=== PATIENT | female | born 1960 | race Two or more races ===

== ENCOUNTER 2019-08-08 11:23 | Inpatient (IN) | payer MEDICAID ==
[2019-08-08] VITALS (25 sets, daily range): BP systolic 94–129; BP diastolic 39–79
[~2019-08-08] VITALS: Ht 165.1 cm; Wt 119.3 kg
--- NOTE | 2019-08-08 11:36 | NUR ---
PT BROUGHT IN FROM [facility] FOR C/C OF AMS PT HAS 18 G IN LAC PLACED BY PARAMEDICS NON VERBAL BLOOD PRESSURE ABNORMAL AND A-FIB ON CONVENTIONS RESERVATIONIST. PT NOTED TO HAVE 4+ PITTING EDEMA, DE LA FUENTE WELL PLACED ON DEBRILLATOR PADS WILL CONTINUE TO MONITOR.
[2019-08-08] MEDS ORDERED: AMIO200T4 PO (11:57)
[2019-08-08] MEDS ORDERED: NA P133E RC (11:57)
[2019-08-08] MEDS ORDERED: RIFA550T PO (11:57)
[2019-08-08] MEDS ORDERED: MULT-447 PO (11:57)
[2019-08-08] MEDS ORDERED: METO25TA20 PO (11:57)
[2019-08-08] MEDS ORDERED: AMIN30LI2 PO (11:57)
[2019-08-08] MEDS ORDERED: BISA10SU11 RC (11:57)
[2019-08-08] MEDS ORDERED: RISP0.253 PO (11:57)
[2019-08-08] MEDS ORDERED: HEPA50008 SQ (11:57)
[2019-08-08] MEDS ORDERED: TRAM50TA2 PO (11:57)
[2019-08-08] MEDS ORDERED: LAMO25TA5 PO (11:57)
[2019-08-08] MEDS ORDERED: MAGN400O6 PO (11:57)
[2019-08-08] MEDS ORDERED: MAGN400T26 PO (11:57)
[2019-08-08] MEDS ORDERED: ESCI5TAB PO (11:57)
[2019-08-08] MEDS ORDERED: FURO-144 PO (11:57)
[2019-08-08] MEDS ORDERED: LOPE1LIQ31 GT (11:57)
[2019-08-08] MEDS ORDERED: SENN-168 PO (11:57)
[2019-08-08 12:09] LABS: BASOPHILS % (AUTO) 0.5 % (0.0-2.0); HEMATOCRIT 31 % (33-45); HEMOGLOBIN 10.2 g/dL (11.5-14.8); LYMPHOCYTES # (AUTO) 0.5 /CMM (0.8-4.8); LYMPHOCYTES % (AUTO) 5.9 % (20.0-44.0); MEAN CORPUSCULAR HGB CONC 33 g/dl (31.0-36.0); MEAN CORPUSCULAR VOLUME 97 fL (82-100); MONOCYTES # (AUTO) 0.7 /CMM (0.1-1.30); MONOCYTES % (AUTO) 7.9 % (2.0-12.0); NEUTROPHILS # (AUTO) 7.3 /CMM (1.8-8.9); NEUTROPHILS % (AUTO) 80.7 % (43.0-81.0); PLATELET COUNT (AUTO) 150 /CMM (150-450); RED BLOOD CELL COUNT(AUTO) 3.19 MIL/uL (4.0-5.2); WHITE BLOOD COUNT (AUTO) 9.1 K/uL (4.3-11.0)
[2019-08-08 12:22] LABS: APPEARANCE,URINE Cloudy (CLEAR); BILIRUBIN,URINE SMALL (NEGATIVE); BLOOD, URINE Large Ery/uL (NEGATIVE); COLOR,URINE Yellow (YELLOW); KETONES,URINE Trace (NEGATIVE); LEUKOCYTE ESTERASE ,URINE Large (NEGATIVE); NITRITE, URINE Negative (NEGATIVE); PROTEIN,URINE >=300 mg/dl (NEGATIVE); UGLUCOSE Negative (NEGATIVE); UROBILINOGEN,URINE 0.2 EU/dL (0.2)
--- NOTE | 2019-08-08 12:23 | NUR ---
URINE SENT TO LAB
[2019-08-08 12:29] LABS: ALANINE AMINOTRANSFERASE 20 U/L (12-78); ALBUMIN 2.5 g/dL (3.4-5.0); ALKALINE PHOSPHATASE 108 U/L (46-116); ASPARTATE AMINOTRANSFERASE 31 U/L (15-37); BILIRUBIN,DIRECT 0.3 mg/dL (0.0-0.2); BILIRUBIN,TOTAL 0.8 mg/dL (0.2-1.0); CALCIUM, SERUM 8.5 mg/dL (8.5-10.1); CARBON DIOXIDE 23 mmol/L (21-32); CHLORIDE 99 mmol/L (98-107); CREATININE 2.8 mg/dL (0.6-1.3); GLUCOSE 103 mg/dL (74-106); SODIUM SERUM 127 mmol/L (136-145); TOTAL PROTEIN, SERUM 6.4 g/dL (6.4-8.2)
[2019-08-08 12:31] LABS: UREA NITROGEN, BLOOD 92 mg/dL (7-18)
[2019-08-08 12:37] LABS: BACTERIA,URINE Many /HPF (None Seen); SQUAMOUS EPITHELIAL CELL,UR Few /HPF (None Seen); WBC,URINE TOO NUMEROUS TO COUN /HPF (0-3)
[2019-08-08 12:38] LABS: SERUM AMMONIA 105 umol/L (11-32)
--- NOTE | 2019-08-08 12:40 | NUR ---
CALLED RESPIRATORY FOR NEBULIZER
[2019-08-08] MEDS ORDERED: CALCIUM CHLORIDE 1,000 MG/10 ML DISP.SYRIN ONE (12:42)
[2019-08-08 12:50] LABS: THYROID STIMULATING HORMONE 5.712 uIU/mL (0.358-3.74)
[2019-08-08] MEDS ORDERED: INSULIN REGULAR, HUMAN 100 UNIT/ML 10 ML VIAL IV ONE (13:00)
[2019-08-08] MEDS ORDERED: ALBUTEROL FS 2.5 MG/0.5 ML VIAL.NEB NEB ONE (13:00)
[2019-08-08] MEDS ORDERED: IV NS 0.9% 500 ML BAG IV ONE (13:00)
[2019-08-08] MEDS ORDERED: DEXTROSE 50%-WATER 50 ML DISP.SYRIN IVP ONE (13:00)
[2019-08-08] MEDS ORDERED: FUROSEMIDE 100 MG/10 ML VIAL IV ONE (13:00)
[2019-08-08] MEDS ORDERED: IV NS 0.9% 250 ML BAG IV ONE (13:00)
[2019-08-08] MEDS ORDERED: Calcium Chloride 13.6 MEQ/10ML VIAL IV ONE (13:00)
[2019-08-08] MEDS ORDERED: ATROPINE SULFATE 1 MG/10 ML DISP.SYRIN IV ONE (13:00)
--- NOTE | 2019-08-08 13:04 | NUR ---
JENNIFER MANAGER USER INTERFACE TASHA EVERETT. #[phone]
--- NOTE | 2019-08-08 13:33 | NUR ---
CALLED [facility]SE [facility] FOR ICU BED
--- NOTE | 2019-08-08 14:14 | NUR ---
ICU BED 252 GIVEN
[2019-08-08] MEDS ORDERED: ONDANSETRON HCL/PF 4 MG/2 ML VIAL IVP PRN (14:30)
[2019-08-08] MEDS ORDERED: ACETAMINOPHEN 325 MG TABLET PO PRN (14:30)
[2019-08-08] MEDS ORDERED: MAGNESIUM HYDROXIDE 30 ML UDC PO PRN (14:30)
[2019-08-08] MEDS ORDERED: MAG HYDROX/AL HYDROX/SIMETH 30 ML UDC PO PRN (14:30)
[2019-08-08] MEDS ORDERED: DOPamine 400 MG/D5W 250 ML RTU PIGGYBACK IV PRN ×2 (14:30→18:00)
[2019-08-08 14:40] LABS: ABG BASE EXCESS -6.3 mmol/L; ABG OXYGEN SATURATION 96.6 % (92.0-98.5); ABG PCO2 38.2 mmHg (35.0-45.0); ABG PH 7.319 (7.350-7.450); ABG PO2 96.3 mmHg (75.0-100.0); AaDO2 58.3 mmHg; COHb 0.3 % (0.5-1.5); MetHb 0.3 % (0.0-1.5); SITE, ABG Left Radial; VENT MODE, BG NASAL CANNULA
[2019-08-08] MEDS ORDERED: ATROPINE SULFATE 1 MG/10 ML DISP.SYRIN IV PRN (15:00)
[2019-08-08] MEDS ORDERED: ALBUTEROL FS 2.5 MG/3 ML VIAL.NEB NEB PRN (15:00)
[2019-08-08] MEDS ORDERED: DEXTROSE 50%-WATER 50 ML DISP.SYRIN IV PRN (15:00)
[2019-08-08] MEDS ORDERED: PIPERACILLIN /TAZOBACTAM 2.25 G in IV D5W 50 ML IV ONE (15:30)
[2019-08-08] MEDS ORDERED: DOPamine 400 MG in IV D5W 250 ML IV PRN (15:30)
[2019-08-08] MEDS ORDERED: KETAMINE HCL (500MG/10ML) 50 MG/ML VIAL ONE (15:56)
[2019-08-08] MEDS ORDERED: ROCURONIUM BROMIDE 100 MG/10 ML VIAL IV ONE (16:00)
[2019-08-08] MEDS ORDERED: KETAMINE HCL (500MG/10ML) 50 MG/ML VIAL IV ONE (16:00)
[2019-08-08] MEDS ORDERED: ROCURONIUM BROMIDE 50 MG/5 ML ONE (16:00)
--- NOTE | 2019-08-08 16:05 | NUR ---
PRODUCTION EDITOR NOTE PATIENT TRANSFERRED FROM ICU. ALTERED MENTAL STATUS DUE TO ACUTE KIDNEY INJURY AND HYPERKALEMIA. PATIENT ON MONITOR ATRIAL FIBRILLATION NOTED. INTUBATED ON ARRIVAL RESPIRATORY AT BEDSIDE. PATIENT HAS MULTIPLE WOUNDS NOTED AND PICTURES TAKEN AND DOCUMENTED. DE LA FUENTE CATHETER CHANGED, PATIENT CLEANED AND DRY. PICC LINE WAS PLACED IN ER TODAY PATENT AND FLUSHING WELL. ALLERGY TO ACETOMINOPHEN NOTED. BED IN LOW POSITION AND SIDE RAILS UP. MULTIPLE NURSE ASSIST TO REPOSITION AND TRANSFER X4. CONTINUE TO MONITOR.
--- NOTE | 2019-08-08 16:25 | NUR ---
RT Pt orally intubated in ER by Dr. Pond at 1605, 7.5 ET tube is secured at 24cm at the lip line. HELICOPTER CREW CHIEF cuff pressure noted. Equal bilateral breathe sounds and chest rise noted. Positive color change one CO2 detector. Pt was immediately transported up to ICU and placed on mechanical ventilation with noted settings per MD order. Vent alarms are set and audible with BVM by bedside. Vent is plugged into red outlet. No respiratory distress noted at this time. Addendum: 08/08/19 at 1650 by PATEL CAMILO RT Amended: Links added.
[2019-08-08] MEDS ORDERED: Sodium Bicarbonate 150 MEQ in IV D5W 1,000 ML IV PRN (16:30)
[2019-08-08] MEDS ORDERED: PROPOFOL 100 ML IV PRN (17:00)
[2019-08-08] MEDS: PANTOPRAZOLE 40 MG VIAL IV SCH (17:25)
[2019-08-08 17:29] LABS: CALCIUM, SERUM 8.4 mg/dL (8.5-10.1); CREATININE 2.7 mg/dL (0.6-1.3)
[2019-08-08] MEDS ORDERED: DOPamine 400 MG/D5W 250 ML RTU PIGGYBACK IV ONE (17:30)
[2019-08-08 17:32] LABS: POTASSIUM 6.4 mmol/L (3.5-5.1)
[2019-08-08 17:57] LABS: ABG BASE EXCESS -5.2 mmol/L; ABG OXYGEN SATURATION 95.3 % (92.0-98.5); ABG PCO2 41.6 mmHg (35.0-45.0); ABG PH 7.314 (7.350-7.450); ABG PO2 85.5 mmHg (75.0-100.0); AaDO2 224.2 mmHg; COHb 0.7 % (0.5-1.5); MetHb 0.5 % (0.0-1.5); O2Hb 94.2 % (94.0-97.0); PEEP,BG 0 cm H2O; SITE, ABG Left Radial; VT, ABG 550 mL
[2019-08-08] MEDS: DOPamine 400 MG in IV D5W 250 ML IV PRN (18:29)
[2019-08-08] MEDS ORDERED: SODIUM POLYSTYRENE SULFONATE 15 G/60 ML BOTTLE PO ONE (18:30)
[2019-08-08] MEDS ORDERED: INSULIN REGULAR, HUMAN 100 UNIT/ML 10 ML VIAL SQ ONE (18:30)
[2019-08-08] MEDS: LACTULOSE 10 G/15 ML UDC (PYXIS) PO SCH (18:34)
[2019-08-08] MEDS: BLOOD SUGAR DIAGNOSTIC 1 EACH STRIP IN SCH (18:34)
--- NOTE | 2019-08-08 19:00 | NUR ---
RN CLOSING NOTE PATIENT IN BED ALTERED NONE RESPONSIVE. OROPHARYNGEAL TUBE INSERTED CHECKED FOR PLACEMENT BY TWO NURSES, INTUBATED, ALL MEDS GIVEN PER MD ORDER. GENERALIZED EDEMA, F/C PATENT AND DRAINING WELL. PICC LINE PATENT AND DRAINING WELL. IV MEDICATIONS ADMINISTERED EFFECTIVE IN INCREASING BLOOD PRESSURE SLIGHTLY SBP< 100. WOUND CONSULT PLACED, PICTURES IN CHART. BED IN LOW POSITION, SIDE RAILS UP ALL NEEDS MET AT THIS TIME. CALL LIGHT WITHIN REACH. DAUGHTER ALLEY CONTACTED FOR EMEGENCY DIALYSIS SIGNED CONSENT FOR TX.
[2019-08-08] MEDS ORDERED: ALBUTEROL FS 2.5 MG/3 ML VIAL.NEB NEB SCH (19:30)
--- NOTE | 2019-08-08 19:48 | NUR ---
RT PT RECEIVED ON VENT VIA TRACH. NO RESP DISTRESS NOTED. PT RECEIVING NO SCHEDULED BREATHING TX AT THIS TIME. Addendum: 08/08/19 at 1948 by TED PUENTE RT Amended: Links added. Addendum: 08/08/19 at 1957 by TED PUENTE RT RT PT RECEIVED ON VENT. NO RESP DISTRESS NOTED. PT RECEIVING SCHEDULED ALBUTEROL AND ATROVENT TX.
--- NOTE | 2019-08-08 21:12 | NUR ---
RT ETT WITH DRAWN 3CM TO 21CM AT THE TEETH BASED ON CHEST XRAY NOTES Addendum: 08/08/19 at 2113 by TED PUENTE RT Amended: Links added.
--- NOTE | 2019-08-08 21:45 | NUR ---
RETAIL SOLAR ADVISOR: CHARGE NURSE ED CALLED DR. BATISTA'S OFFICE AND SPOKE WT LAP LAYER TO FOLLOW-UP HD CATH PLACEMENT FOR EMERGENCY HD. LAP LAYER SAID SHE WILL PAGE MD TO CHECK IF PLACEMENT WILL BE DONE DURING THE SHIFT.
[2019-08-08] MEDS: HEPARIN SODIUM, PORCINE 5000 UNITS/1 ML VIAL SQ SCH (22:02)
--- NOTE | 2019-08-08 22:38 | NUR ---
RN CLINICAL RESOURCE: DR. BUI CALLED BACK AND MADE AWARE THAT NO HD CATHETER PLACEMENT WAS DONE YET. MADE AWARE THAT PT HAS NOT HAD BOWEL MOVEMENT YET S/P KAYEXALATE ADMINISTRATION BY DAY SHIFT. WT ORDER FOR STAT BMP AND SAID EVELIO GREEN IS COMING TO DO PLACEMENT. NOTED AND CARRIED OUT BMP STAT LAB ORDER.
[2019-08-08 23:19] LABS: CREATININE 2.5 mg/dL (0.6-1.3); POTASSIUM 5.2 mmol/L (3.5-5.1)
[2019-08-08 23:50] LABS: APPEARANCE,URINE SL CLOUDY (CLEAR); BILIRUBIN,URINE NEGATIVE (NEGATIVE); BLOOD, URINE 3+ Ery/uL (NEGATIVE); COLOR,URINE YELLOW (YELLOW); KETONES,URINE NEGATIVE (NEGATIVE); LEUKOCYTE ESTERASE ,URINE 3+ (NEGATIVE); NITRITE, URINE NEGATIVE (NEGATIVE); PH,URINE 5.5 (5.0-8.0); PROTEIN,URINE 1+ mg/dl (NEGATIVE); UGLUCOSE NEGATIVE (NEGATIVE); UROBILINOGEN,URINE 0.2 EU/dL (0.2)
--- NOTE | 2019-08-08 23:50 | NUR ---
HEMODIALYSIS CATHETER INSERTION Welder Apprentice Arc: [facility] Kaushal Mayorga NP Patient has order to insert HD catheter. Informed consent is signed and in chart. Insertion site determined to be right femoral vein. Patient was prepped using sterile technique with chlorhexidine. Patient was covered with a sterile drape and I donned a sterile gown. The insertion site was anesthetized with 1% lidocaine. Needle inserted under ultrasound guidance. Guidewire inserted through needle and needle removed. Small toyin made at insertion site of approximately 2 mm. Dilator inserted over guidewire then removed. Catheter inserted fully over guidewire. Guidewire removed. Blood return at both ports. Caps placed on each port. Catheter secured with 2 sutures. Biopatch placed and covered with tegaderm. No s/s of complication. Tolerated well with minimal blood loss. Ebl 3ml.
[2019-08-08 23:53] LABS: BACTERIA,URINE Moderate /HPF (None Seen); SQUAMOUS EPITHELIAL CELL,UR Few /HPF (None Seen); WBC,URINE 51-80 /HPF (0-3)
[2019-08-09] VITALS (97 sets, daily range): BP systolic 88–145; BP diastolic 32–92
--- NOTE | 2019-08-09 | NUR ---
TERRA COTTA SETTER: RIGHT FEMORAL HD CATHETER PLACED AND PT TOLERATED FAIRLY. HD NURSE AT BEDSIDE TO START HEMODIALYSIS. LAB CALLED FOR GLUCOSE QXQMB=208, ACCUCHECK DONE= 156. CHARGE NURSE ED MADE AWARE AND WILL COVER INSULIN PER SS.
[2019-08-09 00:02] LABS: CREATININE, URINE 95.8 MG/DL (30.0-125.0); URINE TOTAL PROTEIN 78.2 mg/dL (0-11.9)
[2019-08-09 00:12] LABS: EOSINOPHIL,URINE None Seen
[2019-08-09] MEDS: BLOOD SUGAR DIAGNOSTIC 1 EACH STRIP IN SCH ×5 (00:16→23:07)
[2019-08-09] MEDS: LACTULOSE 10 G/15 ML UDC (PYXIS) PO SCH ×5 (00:18→23:06)
[2019-08-09] MEDS: INSULIN REGULAR, HUMAN 100 UNIT/ML 3 ML VIAL SQ PRN ×2 (00:18→06:09)
--- NOTE | 2019-08-09 01:00 | NUR ---
SLICING MACHINE TENDER: HEMODIALYSIS DONE WT NO FLUID REMOVAL. PT IS MORE RESPONSIVE, OPENS EYES TO PAIN STIMULI WT IMPROVED HR AND BP. WILL START PROPOFOL AND TITRATE DOPAMINE NEEDED.
[2019-08-09] MEDS: DOPamine 400 MG in IV D5W 250 ML IV PRN (01:12)
[2019-08-09] MEDS: PIPERACILLIN /TAZOBACTAM 2.25 G in IV D5W 50 ML IV SCH ×4 (01:12→23:06)
[2019-08-09] MEDS: IV NS 0.9% 250 ML IV PRN ×2 (01:13→23:14)
[2019-08-09] MEDS ORDERED: IV D5/ 0.9% NACL 1,000 ML IV PRN (01:25)
[2019-08-09] MEDS: PROPOFOL 100 ML IV PRN ×4 (02:49→23:06)
--- NOTE | 2019-08-09 03:00 | NUR ---
CATHODE WASHER: DOPAMINE DRIP STOPPED AT THIS TIME AND STARTED DIPRIVAN DRIP PT IS MORE AWAKE AND FIGHTING VENT. ABLE TO FOLLOW SIMPLE COMMANDS AT TIMES. WILL CONTINUE TO MONITOR.
[2019-08-09 04:50] LABS: BASOPHILS % (AUTO) 0.1 % (0.0-2.0); EOSINOPHILS % (AUTO) 0.2 % (0.0-6.0); HEMATOCRIT 31 % (33-45); HEMOGLOBIN 10.1 g/dL (11.5-14.8); LYMPHOCYTES # (AUTO) 0.4 /CMM (0.8-4.8); LYMPHOCYTES % (AUTO) 3.3 % (20.0-44.0); MEAN CORPUSCULAR HGB CONC 32 g/dl (31.0-36.0); MEAN CORPUSCULAR VOLUME 97 fL (82-100); MONOCYTES # (AUTO) 0.8 /CMM (0.1-1.30); MONOCYTES % (AUTO) 6.6 % (2.0-12.0); NEUTROPHILS # (AUTO) 10.8 /CMM (1.8-8.9); NEUTROPHILS % (AUTO) 89.8 % (43.0-81.0); PLATELET COUNT (AUTO) 143 /CMM (150-450); RED BLOOD CELL COUNT(AUTO) 3.21 MIL/uL (4.0-5.2)
[2019-08-09 05:05] LABS: ALBUMIN 2.2 g/dL (3.4-5.0); BILIRUBIN,TOTAL 0.8 mg/dL (0.2-1.0); CALCIUM, SERUM 8.1 mg/dL (8.5-10.1); CREATININE 2.5 mg/dL (0.6-1.3); MAGNESIUM 2.5 mg/dL (1.8-2.4); PHOSPHORUS 5.3 mg/dL (2.5-4.9); POTASSIUM 5.4 mmol/L (3.5-5.1); TOTAL PROTEIN, SERUM 5.6 g/dL (6.4-8.2)
[2019-08-09] MEDS ORDERED: LACTULOSE 10 G/15 ML UDC (PYXIS) ONE (05:52)
--- NOTE | 2019-08-09 06:23 | NUR ---
DIRECT MARKETING EXECUTIVE: REMAINED SEDATED ON DIPRIVAN DRIP AT 15MCG/KG/MIN AND D5NS AT 100ML/HR WT GOOD URINE OUTPUT VIA DE LA FUENTE CATHETER. STILL OFF DOPAMINE. NO EPISODE OF BOWEL MOVEMENT DURING THE SHIFT. WILL ENDORSE TO DAY SHIFT FOR CONTINUITY OF CARE. SAFETY PRECAUTION NOTED AT ALL TIMES.
[2019-08-09] MEDS ORDERED: FEE EMEERGENCY 1 MIN EA MC ONE (06:38)
[2019-08-09] MEDS ORDERED: ROCURONIUM BROMIDE 50 MG/5 ML IV ONE (06:38)
[2019-08-09] MEDS ORDERED: LACTULOSE 10 G/15 ML UDC (PYXIS) PO PRN (08:00)
[2019-08-09] MEDS: HEPARIN SODIUM, PORCINE 5000 UNITS/1 ML VIAL SQ SCH ×2 (08:20→21:19)
[2019-08-09 08:24] LABS: IRON, SERUM 49 ug/dl (50-175); TOTAL IRON BINDING CAPACITY 272 ug/dl (250-450)
[2019-08-09] MEDS: PANTOPRAZOLE 40 MG VIAL IV SCH (08:50)
--- NOTE | 2019-08-09 09:30 | NUR ---
RN NOTES 0730-RECEIVED PATIENT FROM . PATIENT ORALLY IN TUBATED, ON PROPOFOL DRIP AT 15 MCG/KG/MIN.SATURATION UP TO 100%. MO NITOR BP, RESPIRATION.DR HERRING MADE RPOUNDS 0930-DAUGHTER AGUSTÍN AT BEDSIDE. JASS MENDOZA MADE ROUNDS AND DISCUSSED WITH HER PLANS OF CARE. DR GUZMAN ALSO SPOKE TO AGUSTÍN.
[2019-08-09 09:32] LABS: FERRITIN 144 ng/mL (8-388)
[2019-08-09 10:04] LABS: ABG BASE EXCESS -3.6 mmol/L; ABG OXYGEN SATURATION 98.1 % (92.0-98.5); ABG PCO2 39.9 mmHg (35.0-45.0); ABG PH 7.352 (7.350-7.450); ABG PO2 127.7 mmHg (75.0-100.0); AaDO2 111.6 mmHg; COHb 0.5 % (0.5-1.5); MetHb 0.8 % (0.0-1.5); O2Hb 96.8 % (94.0-97.0); PEEP,BG 0 cm H2O; SITE, ABG Left Radial
[2019-08-09] MEDS ORDERED: PIPERACILLIN /TAZOBACTAM 3.375 G in IV D5W 100 ML IV SCH (10:30)
[2019-08-09] MEDS ORDERED: DOPamine 400 MG in IV D5W 250 ML IV PRN ×2 (12:00→17:00)
--- NOTE | 2019-08-09 15:13 | NUR ---
rn notes 1512-PATIENT FAMILY INFORMED OF PATIENT SKIN CONDITION,DAUGHTER AGUSTÍN STATES THAT HER SKIN CONDITION HAS BEEN "NOT GOOD" WHEN SHE WAS IN ANOTHER FACILITY, BEFORE BEING SENT TO SNF AND TO THIS HOSPITAL.
[2019-08-09] MEDS ORDERED: DOPamine 400 MG/D5W 250 ML RTU PIGGYBACK IV PRN (16:30)
[2019-08-09] MEDS: NEPRO 1,000 ML BOTTLE GT PRN (18:14)
--- NOTE | 2019-08-09 19:13 | NUR ---
RN NOTES 1900-PATIENT WAS DIALIZED EARLIER, DOPAMINE SUPPORT FOR BP DURING HD. PER DIALSYIS RN, 1000 ML OUT. DOPAMINE TITRTATED AFTER DIALYSIS. PATIENT FOLLOWS SIMPLE COMMANDS AT 10 MCG/KG/MIN OF PROPOFOL AFTER HD. REPORT GIVEN TO INCOMING RN FOR FURTHER CARE
--- NOTE | 2019-08-09 19:30 | NUR ---
ELECTRONIC SECURITY SPECIALIST INITIAL SHIFT NOTES RECEIVED PATIENT IN BED, SEDATED ON DIPRIVAN DRIP. PATIENT ORALLY INTUBATED, ETT 7.5, 22CM AT LIP LINE, ON MECHANICAL VENTILATION WITH SETTINGS: AC 16, TV 550, FIO2 40%, NO PEEP. PATIENT TOLERATING VENT SETTINGS WELL, FREE FROM ANY S/S OF RESPIRATORY DISTRESS. BEDSIDE SPECIAL EDUCATION ADMINISTRATOR SHOWS SINUS RHYTHM, HR CURRENTLY 73 BPM. BRIAN PICC PATENT AND INTACT, DIPRIVAN GTT @ 10MCG/KG/MIN, DOPAMINE GTT @ 3MCG/KG/MIN. RIGHT FEMORAL HD CATHETER INTACT, DRESSING CLEAN DRY AND INTACT, NO BLEEDING NOTED AT SITE. DE LA FUENTE CATHETER PATENT AND INTACT, DRAINING VIA GRAVITY. BED LOCKED, LOW, KEPT IN SEMI-FOWLERS POSITION. WILL CONTINUE TO CLOSELY MONITOR
[2019-08-10] VITALS (93 sets, daily range): BP systolic 85–133; BP diastolic 31–87
--- NOTE | 2019-08-10 04:00 | NUR ---
PAYABLE MANAGER NOTES PATIENT NOTED WITH MODERATE SIZED BM, BROWN IN COLOR, SEMIFORMED, SOFT. FULL BED BATH RENDERED, PATIENT TOLERATED WELL. WILL CONTINUE TO CLOSELY MONITOR
[2019-08-10] MEDS: PROPOFOL 100 ML IV PRN ×6 (04:03→21:29)
[2019-08-10 04:51] LABS: BASOPHILS % (AUTO) 0.2 % (0.0-2.0); EOSINOPHILS % (AUTO) 5.6 % (0.0-6.0); HEMATOCRIT 29 % (33-45); HEMOGLOBIN 9.6 g/dL (11.5-14.8); LYMPHOCYTES # (AUTO) 0.6 /CMM (0.8-4.8); LYMPHOCYTES % (AUTO) 6.1 % (20.0-44.0); MEAN CORPUSCULAR HGB CONC 34 g/dl (31.0-36.0); MEAN CORPUSCULAR VOLUME 95 fL (82-100); MONOCYTES # (AUTO) 0.9 /CMM (0.1-1.30); MONOCYTES % (AUTO) 9.3 % (2.0-12.0); NEUTROPHILS # (AUTO) 7.9 /CMM (1.8-8.9); NEUTROPHILS % (AUTO) 78.8 % (43.0-81.0); PLATELET COUNT (AUTO) 122 /CMM (150-450); RED BLOOD CELL COUNT(AUTO) 2.98 MIL/uL (4.0-5.2); WHITE BLOOD COUNT (AUTO) 10.1 K/uL (4.3-11.0)
[2019-08-10 05:12] LABS: ALBUMIN 2.2 g/dL (3.4-5.0); BILIRUBIN,TOTAL 0.9 mg/dL (0.2-1.0); CALCIUM, SERUM 8.1 mg/dL (8.5-10.1); CREATININE 1.9 mg/dL (0.6-1.3); MAGNESIUM 2.5 mg/dL (1.8-2.4); PHOSPHORUS 4.6 mg/dL (2.5-4.9); POTASSIUM 4.9 mmol/L (3.5-5.1); TOTAL PROTEIN, SERUM 5.5 g/dL (6.4-8.2)
[2019-08-10] MEDS ORDERED: LACTULOSE 10 G/15 ML UDC (PYXIS) ONE (05:47)
[2019-08-10] MEDS: BLOOD SUGAR DIAGNOSTIC 1 EACH STRIP IN SCH ×3 (05:50→17:49)
[2019-08-10] MEDS: LACTULOSE 10 G/15 ML UDC (PYXIS) PO SCH ×3 (05:50→17:49)
--- NOTE | 2019-08-10 06:45 | NUR ---
DIABETES EDUCATOR NOTES PATIENT NOTED WITH LARGE BM, LIQUID, BROWN IN COLOR. MULTIPLE STAFF MEMBERS REQUIRED FOR PARTIAL BED BATH, ZGUARD APPLIED TO PROTECT SKIN, MNEPILEX FOAM DRESSINGS PLACED IN OPEN AREAS/SKIN CREASES/FOLDS, PENDING WOUND CARE CONSULT.
--- NOTE | 2019-08-10 07:00 | NUR ---
SOFTWARE DEVELOPMENT INTERN CLOSING NOTES THROUGHOUT SHIFT, PATIENT WITH 2 BMs. REMAINS ORALLY INTUBATED ON MECHANICAL VENTILATION, NO EPISODES OF RESPIRATORY DISTRESS. CONTINUES WITH BILATERAL SOFT WRIST RESTRAINTS DUE TO HIGH SELF EXTUBATION RISK. PATIENT SEDATED ON DIPRIVAN GTT @ 20 MCG/KG/MIN, DOPAMINE GTT CONTINUES @ 1.5 MCG/KG/MIN. WILL EDNORSE THE PATIENT TO THE AM SHIFT NURSE FOR CONTINUITY OF CARE
--- NOTE | 2019-08-10 07:10 | NUR ---
RN NOTES RECEIVED PATIENT ON BED, SEDATED ON DIPRIVAN DRIP. PATIENT ORALLY INTUBATED, ETT 7.5, 22CM AT LIP LINE, ON MECHANICAL VENTILATION WITH SETTINGS: AC 16, TV 550, FIO2 40%, NO PEEP. TOLERATING VENT SETTINGS WELL, ORAL AND ET TUBE SUCTIONING DONE, SINUS RHYTHM ON TELE , HR IN 70'S , BRIAN PICC PATENT AND INTACT, DIPRIVAN GTT @ 20 MCG/KG/MIN, DOPAMINE GTT @ 1.5 MCG/KG/MIN. RIGHT FEMORAL HD CATHETER INTACT, DRESSING CLEAN DRY AND INTACT,SITE CLEAN ,DRY AND INTACT, DE LA FUENTE CATHETER DRAINING TO GRAVITY, SR UP x3, CALL LIGHT WITHIN EASY REACH, BED LOCKED, LOW, KEPT IN SEMI-FOWLERS POSITION. WILL CONTINUE TO CLOSELY MONITOR.
[2019-08-10 07:31] LABS: THYROID STIMULATING HORMONE 3.017 uIU/mL (0.358-3.74)
[2019-08-10] MEDS: PIPERACILLIN /TAZOBACTAM 2.25 G in IV D5W 50 ML IV SCH ×2 (08:28→15:00)
[2019-08-10] MEDS ORDERED: PANTOPRAZOLE 40 MG/PACK PACK NG SCH (09:00)
--- NOTE | 2019-08-10 09:00 | NUR ---
RN NOTES PLT =122 , HEPARIN HELD , REJI NOTIFED , NO ORDER YET .
--- NOTE | 2019-08-10 10:55 | NUR ---
RN NOTES PT HAS LOOSE STOOL , RECTAL TUBE INSERTED PER FARM EQUIPMENT ENGINEER ORDER .
--- NOTE | 2019-08-10 12:00 | NUR ---
RN NOTES NO RESPONSE FROM REJI DATA ENTRY MANAGER REGARDING HEPARIN SQ YET , DATA ENTRY MANAGER PAGED AGAIN.
[2019-08-10] MEDS: NYSTATIN TOP POWDER 15 GM BOTTLE TP SCH ×2 (14:55→16:56)
[2019-08-10] MEDS: CLOTRIMAZOLE/BETAMETASONE DIPROPIONATE 15 GM TUBE TP SCH ×2 (14:55→16:56)
[2019-08-10] MEDS: HEPARIN SODIUM, PORCINE 5000 UNITS/1 ML VIAL SQ SCH (15:23)
[2019-08-10] MEDS: NEPRO 1,000 ML BOTTLE GT PRN (15:25)
--- NOTE | 2019-08-10 15:30 | NUR ---
RN NOTES IT IS OK TO GIVE HEPARIN SQ PER REJI HEAD MACHINIST.
[2019-08-10] MEDS: HYDROGEL DRESSING 90 GM TUBE TP SCH (15:57)
--- NOTE | 2019-08-10 18:21 | NUR ---
RN NOTES PT RECEIVING HD AT THIS TIME , ON DIPRIVAN AT 30MCG/MIN. DOPAMINE AT 1 MCG/KG/MIN INFUSING VIA R UPPER ARM PICC LINE, TF AT 40CC/HR , TOLERATING WELL, NO RESIDUAL NOTED, RECTAL TUBE DRINING TO GRAVITY WITH LIGHT BROWNISH LOOSE STOOL , SR UP x3, CALL LIGHT WITHIN EASY REACH, BED LOCKED AND IN LOWEST POSITION, NO SIGNIFICANT CHANGES NOTED ON THIS SHIFT, WILL ENDOSE TO QUANTITATIVE DEVELOPER NURSE FOR CONTINUITY OF CARE .
--- NOTE | 2019-08-10 19:30 | NUR ---
GAS STOVE SERVICER HELPER INITIAL SHIFT NOTES RECEIVED PATIENT IN BED, SEDATED ON DIPRIVAN DRIP. PATIENT ORALLY INTUBATED, ETT 7.5, 22CM AT LIP LINE, ON MECHANICAL VENTILATION WITH SETTINGS: AC 16, TV 550, FIO2 40%, NO PEEP. PATIENT TOLERATING VENT SETTINGS WELL, FREE FROM ANY S/S OF RESPIRATORY DISTRESS. BEDSIDE AERIAL INSTALLER SHOWS SINUS RHYTHM, HR CURRENTLY 76 BPM. BRIAN PICC PATENT AND INTACT, DIPRIVAN GTT @ 30MCG/KG/MIN, DOPAMINE GTT @ 1MCG/KG/MIN. RIGHT FEMORAL HD CATHETER INTACT, DRESSING CLEAN DRY AND INTACT, NO BLEEDING NOTED AT SITE. DE LA FUENTE CATHETER PATENT AND INTACT, DRAINING VIA GRAVITY. BED LOCKED, LOW, KEPT IN SEMI-FOWLERS POSITION. WILL CONTINUE TO CLOSELY MONITOR AND TRANSFER PATIENT TO [facility]
--- NOTE | 2019-08-10 20:57 | NUR ---
MANAGER REPORTING NOTES CALLED PHARMACY, SPOKE TO [facility] REGARDING ORDERS FOR HEPARIN 5000 UNITS SQ SCHEDULED Q12H. LAST DOSE WAS GIVEN AT 3PM DUE TO CLARIFICATION OF ORDERS WITH GLUE JOINTER FEEDER REJI. PER [facility], GIVE THIS NEXT DOSE AT MIDNIGHT, THEN CONTINUE THE SCHEDULE ORDERED. WILL CARRY OUT ORDERS AND CONTINUE TO CLOSELY MONITOR THE PATIENT
[2019-08-11] VITALS (98 sets, daily range): BP systolic 77–127; BP diastolic 27–70
[2019-08-11] MEDS: BLOOD SUGAR DIAGNOSTIC 1 EACH STRIP IN SCH ×4 (00:11→17:07)
[2019-08-11] MEDS: PIPERACILLIN /TAZOBACTAM 2.25 G in IV D5W 50 ML IV SCH ×3 (00:11→15:01)
[2019-08-11] MEDS: LACTULOSE 10 G/15 ML UDC (PYXIS) PO SCH ×4 (00:11→17:07)
[2019-08-11] MEDS: HEPARIN SODIUM, PORCINE 5000 UNITS/1 ML VIAL SQ SCH ×2 (00:13→09:00)
[2019-08-11] MEDS: PROPOFOL 100 ML IV PRN ×7 (00:27→20:33)
--- NOTE | 2019-08-11 01:00 | NUR ---
AMMUNITION AND EXPLOSIVES HANDLER NOTES PATIENT TRANSFERRED SAFELY TO [facility] BED WITH ASSISTANCE FROM 7 OTHER STAFF MEMBERS. PATIENT TOLERATED TRANSFER WELL.
[2019-08-11 04:19] LABS: BASOPHILS % (AUTO) 0.3 % (0.0-2.0); EOSINOPHILS % (AUTO) 2.7 % (0.0-6.0); HEMATOCRIT 28 % (33-45); HEMOGLOBIN 9.6 g/dL (11.5-14.8); LYMPHOCYTES # (AUTO) 0.3 /CMM (0.8-4.8); LYMPHOCYTES % (AUTO) 4.1 % (20.0-44.0); MEAN CORPUSCULAR HGB CONC 34 g/dl (31.0-36.0); MEAN CORPUSCULAR VOLUME 96 fL (82-100); MONOCYTES # (AUTO) 0.4 /CMM (0.1-1.30); NEUTROPHILS # (AUTO) 7.2 /CMM (1.8-8.9); NEUTROPHILS % (AUTO) 87.9 % (43.0-81.0); PLATELET COUNT (AUTO) 93 /CMM (150-450); RED BLOOD CELL COUNT(AUTO) 2.95 MIL/uL (4.0-5.2); WHITE BLOOD COUNT (AUTO) 8.2 K/uL (4.3-11.0)
[2019-08-11 04:31] LABS: CALCIUM, SERUM 8.8 mg/dL (8.5-10.1); CREATININE 1.5 mg/dL (0.6-1.3); POTASSIUM 4.1 mmol/L (3.5-5.1)
--- NOTE | 2019-08-11 05:24 | NUR ---
RECEIVED PT INTUBATED 7.5 ETT AT 22CM ON 840 VENT. NO RESP DISTRESS THE WHOLE NIGHT. SX'D FOR SML TO MOD AMT OF THICK PISANO SECRETIONS. VENT ALARMS SET AND AUDIBLE. AMBU BAG AT BEDSIDE. WILL CONTINUE TO MONITOR. Addendum: 08/11/19 at 0528 by BUTCH DUVAL RT Amended: Links added.
[2019-08-11 05:59] LABS: BAND % (MANUAL) 1 % (0.0-5.0); EOSINOPHILS % (MANUAL) 1 % (0-4); LYMPHOCYTES % (MANUAL) 4 % (16-48); MONOCYTES % (MANUAL) 1 % (0-11.0); NEUTROPHILS % (MANUAL) 93 (42-76)
[2019-08-11] MEDS ORDERED: LACTULOSE 10 G/15 ML UDC (PYXIS) ONE (06:42)
--- NOTE | 2019-08-11 07:00 | NUR ---
RN NOTES RECEIVED PATIENT ON BED, SEDATED ON DIPRIVAN DRIP. PATIENT ORALLY INTUBATED, ETT 7.5, 22CM AT LIP LINE, ON MECHANICAL VENTILATION WITH SETTINGS: AC 16, TV 550, FIO2 40%, NO PEEP. TOLERATING VENT SETTINGS WELL, ORAL AND ET TUBE SUCTIONING DONE, SINUS RHYTHM ON TELE , HR IN 70'S , R UPPER ARM PICC LINE INTACT, PATENT , DIPRIVAN GTT @ 30 MCG/KG/MIN, DOPAMINE GTT @ 1.5 MCG/KG/MIN. RIGHT FEMORAL HD CATHETER INTACT, DE LA FUENTE CATHETER DRAINING TO GRAVITY, FLEXISEAL DRINING TO GRAVITY WITH LIGHT BROWNISH LOOSE STOOL, SR UP x3, CALL LIGHT WITHIN EASY REACH, BED LOCKED AND IN LOWEST POSITION, KEPT IN SEMI-FOWLERS POSITION. WILL CONTINUE TO MONITOR.
--- NOTE | 2019-08-11 07:00 | NUR ---
BEVELING MACHINE OPERATOR CLOSING NOTES PATIENT RESTING IN BED, APPEARS COMFORTABLE, REMAINS SEDATED ON DIPRIVAN GTT AT 30MCG/KG/MIN, ALSO CONTINUES ON DOPAMINE GTT, TITRATED BACK TO 1.5MCG/KG/MIN. WILL ENDORSE THE PATIENT TO THE AM SHIFT NURSE FOR CONTINUITY OF CARE Addendum: 08/11/19 at 0802 by JOHANNA EDMONDS RN ADDENDUM* PATIENT WITH 3 LARGE BOWEL MOVEMENTS, BROWN IN COLOR, MIX OF LIQUID AND FORMED STOOL
[2019-08-11] MEDS: HYDROGEL DRESSING 90 GM TUBE TP SCH (08:02)
[2019-08-11] MEDS: Z GUARD REMEDY 2 OZ OINT TP PRN (08:02)
[2019-08-11] MEDS: CLOTRIMAZOLE/BETAMETASONE DIPROPIONATE 15 GM TUBE TP SCH ×2 (08:02→16:10)
[2019-08-11] MEDS: NYSTATIN TOP POWDER 15 GM BOTTLE TP SCH ×2 (08:02→16:09)
--- NOTE | 2019-08-11 09:02 | NUR ---
RN NOTES PLT =93, REJI DIRECTOR REGULATORY AFFAIRS NOTIFIED, HEPARIN SQ HELD PER DIRECTOR REGULATORY AFFAIRS ORDER .
--- NOTE | 2019-08-11 09:15 | NUR ---
RN NOTES HD NURSE ON THE FLOOR TO START HEMODIALYSIS . OK TO GET HD DONE BEFORE PLACING PT ON SIMV MODE AND SEDATION VACATION PER DR GUZMAN ORDER .
[2019-08-11] MEDS: DOPamine 400 MG in IV D5W 250 ML IV PRN (09:16)
[2019-08-11] MEDS: ESOMEPRAZOLE MAGNESIUM 40 MG SUSPDR.PKT GT SCH (09:20)
--- NOTE | 2019-08-11 10:31 | NUR ---
RN NOTES DR LORRAINE CORDON REGARDING AMMONIA LEVEL OF 17 , LACTULOSE ON HOLD TODAY ,PER MD ORDER.
--- NOTE | 2019-08-11 13:52 | NUR ---
RN NOTES BIANCA FORM STOOL NOTED , FLEXI SEAL D/WU PER MD ORDER .
[2019-08-11 14:07] LABS: PTH, INTACT 39 pg/mL (15-65)
[2019-08-11] MEDS: NEPRO 1,000 ML BOTTLE GT PRN (15:04)
[2019-08-11 15:29] LABS: ABG BASE EXCESS 2.7 mmol/L; ABG OXYGEN SATURATION 97.8 % (92.0-98.5); ABG PCO2 51.8 mmHg (35.0-45.0); ABG PH 7.363 (7.350-7.450); ABG PO2 118.6 mmHg (75.0-100.0); COHb 0.4 % (0.5-1.5); MetHb 0.6 % (0.0-1.5); O2Hb 96.8 % (94.0-97.0); SITE, ABG Left Radial
--- NOTE | 2019-08-11 15:30 | NUR ---
RN NOTES DR GUZMAN NOTIFED REGARDING ABG RESULTS ON SIMV MODE . UNABLE TO EXTUBATE PT AT THIS TIME PER DR. GUZMAN ORDER . CONTINUE TO MONITOR .
--- NOTE | 2019-08-11 17:26 | NUR ---
RT PATIENT REMAINS STABLE THROUGHOUT SHIFT. PATIENT DID NOT PAULA WEANING TRIAL TODAY. WILL BE PLACED ON CPAP TOMORROW MORNING. Addendum: 08/11/19 at 1728 by BELKIS FELIX RT Amended: Links added.
--- NOTE | 2019-08-11 18:00 | NUR ---
RN NOTES PT STILL ON DOPAMINE GTT AND PROPOFOL AND SEDATED,ETT SUCTIONING AND CARE DONE PRN, PT FAILED WEANING TRIAL TODAY. VSS STABLE, TOLERATING TF AT 40CC/HR WELL. DE LA FUENTE DRINING TO GRAVITY, NO SIGNIFICANT CHANGES NOTED ON THIS SHIFT, WILL ENDOSE TO TABLE MACHINE OPERATOR NURSE FOR CONTINUITY OF CARE.
--- NOTE | 2019-08-11 19:30 | NUR ---
MEDICAL CLAIMS ASSISTANT INITIAL SHIFT NOTES RECEIVED PATIENT IN BED, SEDATED ON DIPRIVAN DRIP. PATIENT ORALLY INTUBATED, ETT 7.5, 22CM AT LIP LINE, ON MECHANICAL VENTILATION WITH SETTINGS: AC 16, TV 550, FIO2 40%, NO PEEP. PATIENT TOLERATING VENT SETTINGS WELL, FREE FROM ANY S/S OF RESPIRATORY DISTRESS. BEDSIDE WHITE SOURER SHOWS SINUS RHYTHM, HR CURRENTLY 84 BPM. BRIAN PICC PATENT AND INTACT, DIPRIVAN GTT @ 30MCG/KG/MIN, DOPAMINE GTT @ 0.5 MCG/KG/MIN. RIGHT FEMORAL HD CATHETER INTACT, DRESSING CLEAN DRY AND INTACT, NO BLEEDING NOTED AT SITE. DE LA FUENTE CATHETER PATENT AND INTACT, DRAINING VIA GRAVITY. BED LOCKED, LOW, KEPT IN SEMI-FOWLERS POSITION.
[2019-08-12] VITALS (75 sets, daily range): BP systolic 82–127; BP diastolic 37–77
--- NOTE | 2019-08-12 | NUR ---
FIXED ROUTE OPERATOR NOTES PATIENT RESTING COMFORTABLY IN BED. CONTINUES ON MECHANICAL VENTILATION VIA ETT, NO ACUTE CHANGES, NO RESPIRATORY DISTRESS NOTED
[2019-08-12] MEDS: PIPERACILLIN /TAZOBACTAM 2.25 G in IV D5W 50 ML IV SCH ×4 (00:40→23:40)
[2019-08-12] MEDS: BLOOD SUGAR DIAGNOSTIC 1 EACH STRIP IN SCH ×5 (00:49→23:39)
[2019-08-12] MEDS: PROPOFOL 100 ML IV PRN ×2 (00:52→05:39)
[2019-08-12] MEDS: IV NS 0.9% 250 ML IV PRN ×2 (00:52→00:53)
--- NOTE | 2019-08-12 04:00 | NUR ---
PONY RIDE OPERATOR NOTES PATIENT WITH BM X1, BED BATH RENDERED, ALL WOUND CARE PERFORMED, PATIENT TOLERATED WELL. WILL CONTINUE CLOSE MONITORING
[2019-08-12 04:23] LABS: BASOPHILS % (AUTO) 0.3 % (0.0-2.0); EOSINOPHILS % (AUTO) 1.6 % (0.0-6.0); HEMATOCRIT 28 % (33-45); HEMOGLOBIN 9.3 g/dL (11.5-14.8); LYMPHOCYTES # (AUTO) 0.4 /CMM (0.8-4.8); LYMPHOCYTES % (AUTO) 6.4 % (20.0-44.0); MEAN CORPUSCULAR HGB CONC 33 g/dl (31.0-36.0); MEAN CORPUSCULAR VOLUME 97 fL (82-100); MONOCYTES # (AUTO) 0.4 /CMM (0.1-1.30); MONOCYTES % (AUTO) 6.1 % (2.0-12.0); NEUTROPHILS # (AUTO) 5.9 /CMM (1.8-8.9); NEUTROPHILS % (AUTO) 85.6 % (43.0-81.0); PLATELET COUNT (AUTO) 90 /CMM (150-450); RED BLOOD CELL COUNT(AUTO) 2.89 MIL/uL (4.0-5.2)
[2019-08-12 04:50] LABS: CALCIUM, SERUM 8.4 mg/dL (8.5-10.1); CREATININE 1.2 mg/dL (0.6-1.3); MAGNESIUM 2.3 mg/dL (1.8-2.4); PHOSPHORUS 3.4 mg/dL (2.5-4.9); POTASSIUM 3.6 mmol/L (3.5-5.1)
[2019-08-12] MEDS: LACTULOSE 10 G/15 ML UDC (PYXIS) PO SCH ×5 (05:43→23:39)
--- NOTE | 2019-08-12 06:00 | NUR ---
NUTRITION TECH NOTES AMMONIA LEVEL THIS AM = 37, LACTULOSE GIVEN
[2019-08-12 06:06] LABS: *SPE A/G RATIO 0.9 (0.7-1.7); *SPE ALBUMIN 2.4 g/dL (2.9-4.4); *SPE ALPHA-1-GLOBULIN 0.3 g/dL (0.0-0.4); *SPE ALPHA-2-GLOBULIN 0.6 g/dL (0.4-1.0); *SPE BETA GLOBULIN 0.7 g/dL (0.7-1.3); *SPE GLOBULIN, TOTAL 2.8 g/dL (2.2-3.9); *SPE M-SPIKE Not Observed g/dL (Not Observed); *SPEGAMMA GLOBULIN 1.2 g/dL (0.4-1.8)
--- NOTE | 2019-08-12 07:00 | NUR ---
METAL GRADER CLOSING NOTES PATIENT RESTING IN BED, APPEARS COMFORTABLE. NO ACUTE CHANGES THROUGHOUT SHIFT. REMAINS ORALLY INTUBATED ON MECHANICAL VENTILATOR. DIPRIVAN DRIP TITRATED DOWN TO 20 MCG/LG/MIN, DOPAMINE DRIP REMAINED AT 0.5MCG/KG/MIN, UNABLE TO TURN DRIP OFF
--- NOTE | 2019-08-12 07:00 | NUR ---
RN NOTES RECEIVED PATIENT ON BED, SEDATED ON DIPRIVAN DRIP. PATIENT ORALLY INTUBATED, ETT 7.5, 22CM AT LIP LINE, ON MECHANICAL VENTILATION WITH SETTINGS: AC 16, TV 550, FIO2 40%, NO PEEP. PATIENT TOLERATING VENT SETTINGS WELL, ORALL AND ET SUCTION DONE, NO DISTRESS, WILL START WEANING TRIAL PER DR GUZMAN ORDER THIS AM, ON TELE SR HE IN 90'S , BRIAN PICC PATENT AND INTACT, DIPRIVAN GTT @ 20MCG/KG/MIN, DOPAMINE GTT @ 0.5 MCG/KG/MIN. RIGHT FEMORAL HD CATHETER INTACT, DRESSING CLEAN DRY AND INTACT, NO BLEEDING NOTED AT SITE. DE LA FUENTE CATHETER PATENT AND INTACT, DRAINING VIA GRAVITY. BED LOCKED, LOW, KEPT IN SEMI-FOWLERS POSITION. CONTINUE TO MONITOR .
--- NOTE | 2019-08-12 07:30 | NUR ---
RN NOTES PT IS AWAKE , FOLLOWING COMMANDS, OFF SEDATION , CONTINUE WEANING TRIAL PER DR GUZMAN ORDER .
--- NOTE | 2019-08-12 07:42 | NUR ---
pt is awake and follow commands placed into cpap 5 / ps 15 @ 40% fio2 as order. rn aware on changes for weaning trial. Addendum: 08/12/19 at 0744 by TREY BACON RT Amended: Links added.
[2019-08-12] MEDS: HYDROGEL DRESSING 90 GM TUBE TP SCH (08:05)
[2019-08-12] MEDS: CLOTRIMAZOLE/BETAMETASONE DIPROPIONATE 15 GM TUBE TP SCH ×2 (08:05→17:22)
[2019-08-12] MEDS: NYSTATIN TOP POWDER 15 GM BOTTLE TP SCH ×2 (08:06→17:23)
--- NOTE | 2019-08-12 09:59 | NUR ---
RN NOTES NEXIUM IS NOT AVAILABLE FROM PHARMACY YET, PHARMACY NOTIFED x3.
--- NOTE | 2019-08-12 10:05 | NUR ---
vent changes below made per dr. ho: ps 20 Addendum: 08/12/19 at 1006 by TREY BACON RT Amended: Links added.
[2019-08-12] MEDS: DOPamine 400 MG in IV D5W 250 ML IV PRN (10:14)
[2019-08-12] MEDS: ESOMEPRAZOLE MAGNESIUM 40 MG SUSPDR.PKT GT SCH (10:17)
--- NOTE | 2019-08-12 13:10 | NUR ---
RN NOTES DR GUZMAN NOTIFED , REGARDING ABG RESULTS , NO NEW ORDER GIVEN, PT STILL ON CPAP MODE AND OFF SEDATION ,OPENS EYES TO VERBAL STIMULI, FOLLOWS SIMPLE COMMAND. CONTINUE TO MONITOR .
--- NOTE | 2019-08-12 13:43 | NUR ---
RN NOTES PT RECEIVING HD AT THIS TIME, CONTINUE TO MONITOR .
[2019-08-12] MEDS ORDERED: ALBUMIN 25% 12.5 GM in PREMIX 1 EA IV ONE (14:00)
--- NOTE | 2019-08-12 14:30 | NUR ---
RN NOTES VSS STABLE , TOLERATING TF AT 40CC/HR WELL, NO DISTRESS NOTED , NO DISTRESS NOTED ,
[2019-08-12] MEDS: NEPRO 1,000 ML BOTTLE GT PRN (14:52)
--- NOTE | 2019-08-12 18:40 | NUR ---
RN NOTES PT OFF DOPAMINE , OFF SEDATION , VSS STABLE, FOLLOWS SIMPLE COMMANDS, ON SMALL BIANCA-FORM STOOL NOTED ON THIS SHIFT, SR UP X3, CALL LIGHT WITHIN EASY REACH, BED LOCKED AND IN LOWEST POSITION, WILL ENDORSE TO RN OBSERVATION NURSE FOR CONTINUITY OF CARE
--- NOTE | 2019-08-12 19:00 | NUR ---
RECEIVED PATIENT,ORALLY INTUBATED ON THE VENTILATOR ON PRESSURE SUPPORT MODE,BREATHING REGULAR AND NON LABORED.STILL SLIGHTLY LETHARGIC (OFF SEDATION SINCE MORNING MORNING)BUT EASILY AROUSABLE, FOLLOWS SIMPLE COMMANDS,MOVES ARMS/HANDS ,PATIENT OBESE.PICC LINE VIA BRIAN (OFF DOPAMINE DRIP),BP STABLE.OGT WITH ON GOING FEEDING ,TOLERATING WELL.COMFORT CARE DONE.NEEDS ATTENDED.
--- NOTE | 2019-08-12 19:23 | NUR ---
RECEIVED PT ORALLY INTUBATED 7.5 ETT AT 22CM ON VENT WITH NOTED SETTINGS. PT IS ALERT AND AWAKE . NO RESP DISTRESS NOTED AT THIS TIME. SUCTION SMALL AMOUNT OF PINK TINGED SECRETIONS. VENT ALARMS SET AND AUDIBLE. AMBU BAG AT BEDSIDE. WILL CONTINUE TO MONITOR.
--- NOTE | 2019-08-12 22:00 | NUR ---
REMAINS STABLE,NOT IN ANY DISTRESS,AWAKE.BP REMAINS STABLE .
[2019-08-13] VITALS (58 sets, daily range): BP systolic 84–139; BP diastolic 33–108
--- NOTE | 2019-08-13 | NUR ---
REMAINS STABLE, TOLERATING CPAP/PRESSURE SUPPORT, NOT IN ANY DISTRESS.STILL OFF OFF PRESSORS ,STILL OFF SEDATION,LETHARGIC BUT EASILY AROUSABLE,FOLLOWS COMMANDS.
--- NOTE | 2019-08-13 04:00 | NUR ---
REMAINS STABLE, NOT IN ANY DISTRESS,ALERT . AM CARE /SKIN CARE DONE.
[2019-08-13 04:23] LABS: BASOPHILS % (AUTO) 0.4 % (0.0-2.0); HEMATOCRIT 28 % (33-45); HEMOGLOBIN 9.4 g/dL (11.5-14.8); LYMPHOCYTES # (AUTO) 0.6 /CMM (0.8-4.8); LYMPHOCYTES % (AUTO) 6.3 % (20.0-44.0); MEAN CORPUSCULAR HGB CONC 34 g/dl (31.0-36.0); MEAN CORPUSCULAR VOLUME 97 fL (82-100); MONOCYTES # (AUTO) 0.8 /CMM (0.1-1.30); MONOCYTES % (AUTO) 8.6 % (2.0-12.0); NEUTROPHILS # (AUTO) 7.9 /CMM (1.8-8.9); NEUTROPHILS % (AUTO) 81.7 % (43.0-81.0); PLATELET COUNT (AUTO) 89 /CMM (150-450); RED BLOOD CELL COUNT(AUTO) 2.91 MIL/uL (4.0-5.2); WHITE BLOOD COUNT (AUTO) 9.7 K/uL (4.3-11.0)
[2019-08-13 04:35] LABS: CALCIUM, SERUM 8.6 mg/dL (8.5-10.1); CREATININE 1.5 mg/dL (0.6-1.3); MAGNESIUM 2.4 mg/dL (1.8-2.4); PHOSPHORUS 3.4 mg/dL (2.5-4.9); POTASSIUM 3.4 mmol/L (3.5-5.1)
--- NOTE | 2019-08-13 06:00 | NUR ---
MORE ALERT AND AWAKE THIS AM ,SLIGHTLY AGITATED AT TIMES,TOLERATED CPAP/PRESSURE SUPPORT MODE ALL NIGHT.POSSIBLE EXTUBATION TODAY.
[2019-08-13] MEDS: BLOOD SUGAR DIAGNOSTIC 1 EACH STRIP IN SCH ×3 (06:14→17:52)
[2019-08-13] MEDS ORDERED: LACTULOSE 10 G/15 ML UDC (PYXIS) ONE (06:26)
[2019-08-13] MEDS: LACTULOSE 10 G/15 ML UDC (PYXIS) PO SCH ×4 (06:28→23:33)
--- NOTE | 2019-08-13 07:00 | NUR ---
REMAINS STABLE ON CPAP MODE,NOT IN ANY DISTRESS,MORE ALERT,COUGHING A LOT WITH COPIOUS AMOUNT OF SECRETIONS ORALLY . 07 WHILE GIVING REPORT TO MORNING SHIFT RN, VENTILATOR ALARMING A LOT,NOTED PATIENT WITH GASPY BREATHING AND STARTED DESATURATING AND FACE SEEMS TURNING GRAYISH, AMBU BAGGED , COLOR IMPROVED AND SATURATION STARTED TO GO UP ,PLACED BACK ON AC MODE BY RT.
--- NOTE | 2019-08-13 07:10 | NUR ---
RN INITIAL NOTES DURING ENDORSEMENT, PT NOTED HAVING RESPIRATORY DISTRESS AND DECREASING 02 SAT. PT SUCTIONED, AMBU BAGGED. PT INTUBATED, ON CPAP MODE. PLACED ON AC MODE BY RT, 02 SAT IMPROVED. HOB ELEVATED. PT MOVES BLE, NOT FOLLOWING COMMAND. OG TUNE IN PLACE. FC IN PLACE. WILL CLOSELY MONITOR.
[2019-08-13] MEDS: PROPOFOL 100 ML IV PRN ×5 (07:37→23:02)
[2019-08-13] MEDS: PIPERACILLIN /TAZOBACTAM 2.25 G in IV D5W 50 ML IV SCH ×3 (08:34→23:31)
[2019-08-13] MEDS: CLOTRIMAZOLE/BETAMETASONE DIPROPIONATE 15 GM TUBE TP SCH ×2 (09:36→16:10)
[2019-08-13] MEDS: HYDROGEL DRESSING 90 GM TUBE TP SCH (09:36)
[2019-08-13] MEDS: NYSTATIN TOP POWDER 15 GM BOTTLE TP SCH ×2 (09:37→16:10)
[2019-08-13] MEDS: ESOMEPRAZOLE MAGNESIUM 40 MG SUSPDR.PKT GT SCH (09:49)
--- NOTE | 2019-08-13 10:00 | NUR ---
RN NOTES 0915 SEEN AND EXAMINED BY DR GUZMAN. AWARE THAT PT NOTED WITH RESPIRATORY DISTRESS AND DESATURATION AT 0700 AND PLACED BACK ON AC MODE. PT RESTARTED ON DIPRIVAN. PT NOTED WITH THICK, MODERATE SECRETIONS. WILL CONTINUE TO MONITOR 0930 SEEN AND EXAMINED BY DR PETERS. AWARE OF PT'S CURRENT STATUS. NOTIFIED OF LAB VALUES AND CXR RESULT. WILL CONTINUE TO MONITOR
[2019-08-13] MEDS: DOPamine 400 MG in IV D5W 250 ML IV PRN (10:31)
[2019-08-13] MEDS: ALBUMIN 25% 25 GM in PREMIX 1 EA IV PRN (12:26)
--- NOTE | 2019-08-13 17:00 | NUR ---
RN NOTES PT STARTED HEMODIALYSIS AT 1030 AND ENDED AT 1630. TOLERATED WELL. REMOVED 4000ML. PT GIVEN ALBUMIN DURING DIALYSIS. DOPAMINE RESTARTED FOR BP SUPPORT. WILL TITRATE ACCORDINGLY. PT STABLE.
[2019-08-13] MEDS: NEPRO 1,000 ML BOTTLE GT PRN (17:07)
[2019-08-13] MEDS: IV NS 0.9% 250 ML IV PRN (17:52)
--- NOTE | 2019-08-13 18:31 | NUR ---
RN CLOSING NOTES PT REMAINS INTUBATED, ON VENT. NO RESPIRATORY DISTRESS NOTED. NO SIGNS OF PAIN NOTED. KEPT HOB ELEVATED. SUCTIONED Q2 AND NEEDED. PT SEDATED, ON DIPRIVAN. TITRATED ACCORDINGLY. DOPAMINE OFF, SBP ON 90S. BRIAN PICC IN PLACE. TOLERATING GTF. FC IN PLACE. TX PROVIDED ORDERED. KEPT CLEAN AND DRY. REPOSITIONED Q2. BLE ELEVATED. WILL ENDORSE FOR CONTINUITY OF CARE.
--- NOTE | 2019-08-13 20:00 | NUR ---
WHEEL PRESSER NOTES RECEIVED PTS IN BED WITH EYES CLOSED REMAINS ON VENTILATOR AC SETTINGS WELL TOLERATED, ON ETT 7.5 AT 22CM AT THE LIPS, PTS ON AFIB -98 SATING 99% HOB ELEVATED AT ALL TIMES , NO SOB NO DISTRESS NOTED ,OGT NEPRO AT 40CC/HR WELL TOLERATED NO RESIDUAL NOTED . PTS ON PICC LINE ON BRIAN TLC INTACT AND PATENT ,WITH DIPRIVAN DRIP AT 25MCG /HR INFUSING WELL, WITH HD CATH AE RIGHT GROIN INTACT AND PATENT NO BLEEDING NOTED .PTS ON BILATERAL SOFTWRIST RESTRAINT TO PREVENT FROM PULLING INVASIVE TUBING , ON F/C INTACT AND PATENT DRAINING WITH SMALL AMT. OF YELLOWISH URINE OUTPUT .V/S BP 86/43 HR 75 RR15 TEMP 98.6 , NO FACIAL GRIMACES NOTED ,TURN AND REPOSITIONED WELL CONTINUE TO MONITOR PTS.
--- NOTE | 2019-08-13 20:15 | NUR ---
HOTEL RECEPTIONIST NOTES BLOOD PRESSURE 86/43 , DOPAMINE STARTED AT 2MCG /HR , DUE MEDS GIVEN ORDERED .WILL CONTINUE TO MONITOR.
--- NOTE | 2019-08-13 20:16 | NUR ---
RECEIVED PT ORALLY INTUBATED 7.5 ETT AT 22CM ON VENT WITH NOTED SETTINGS. NO RESP DISTRESS NOTED AT THIS TIME. SUCTION SMALL AMOUNT OF PINK TINGED SECRETIONS. VENT ALARMS SET AND AUDIBLE. AMBU BAG AT BEDSIDE. WILL CONTINUE TO MONITOR.
--- NOTE | 2019-08-13 21:00 | NUR ---
REVERSE ENGINEER NOTES DOPAMINE DECREASE TO 1MCG BLOOD PRESSURE 140/83
--- NOTE | 2019-08-13 21:59 | NUR ---
FACIAL OPERATOR NOTES FAMILY AT BEDSIDE UPDATED WITH PTS CURRENT CONDITION .
[2019-08-14] VITALS (70 sets, daily range): BP systolic 87–118; BP diastolic 40–95
--- NOTE | 2019-08-14 | NUR ---
TANKER DRIVER NOTES BLOOD SUGAR AT 12MN IS 114 MG/DL NO COVERAGE GIVEN PER SLIDING SCALE. PTS ON OGT FEEDING NEPHRO 45CC/HR WELL TOLERATED , DUE MEDS GIVEN ORDERED ,SUCTION SECRETION DONE WITH SMALL AMT OF WHITE THIN SECRETION. WELL CONTINUE TO MONITOR.
[2019-08-14] MEDS: INSULIN REGULAR, HUMAN 100 UNIT/ML 3 ML VIAL SQ PRN ×2 (00:17→06:10)
[2019-08-14] MEDS: BLOOD SUGAR DIAGNOSTIC 1 EACH STRIP IN SCH ×5 (00:19→23:36)
--- NOTE | 2019-08-14 03:00 | NUR ---
CHIEF ENGINEER NOTES DOPAMINE UP TO 2MCG D/T BP ON 80S
[2019-08-14] MEDS: PROPOFOL 100 ML IV PRN ×7 (03:08→23:36)
[2019-08-14 04:37] LABS: BASOPHILS % (AUTO) 0.4 % (0.0-2.0); EOSINOPHILS % (AUTO) 5.7 % (0.0-6.0); HEMATOCRIT 28 % (33-45); HEMOGLOBIN 9.1 g/dL (11.5-14.8); LYMPHOCYTES # (AUTO) 0.9 /CMM (0.8-4.8); LYMPHOCYTES % (AUTO) 9.6 % (20.0-44.0); MEAN CORPUSCULAR HGB CONC 33 g/dl (31.0-36.0); MEAN CORPUSCULAR VOLUME 97 fL (82-100); MONOCYTES # (AUTO) 0.7 /CMM (0.1-1.30); NEUTROPHILS # (AUTO) 6.8 /CMM (1.8-8.9); NEUTROPHILS % (AUTO) 76.3 % (43.0-81.0); PLATELET COUNT (AUTO) 75 /CMM (150-450); RED BLOOD CELL COUNT(AUTO) 2.85 MIL/uL (4.0-5.2); WHITE BLOOD COUNT (AUTO) 8.9 K/uL (4.3-11.0)
[2019-08-14 04:56] LABS: CALCIUM, SERUM 8.3 mg/dL (8.5-10.1); CREATININE 1.2 mg/dL (0.6-1.3); MAGNESIUM 2.2 mg/dL (1.8-2.4); PHOSPHORUS 2.7 mg/dL (2.5-4.9); POTASSIUM 3.2 mmol/L (3.5-5.1)
[2019-08-14] MEDS: LACTULOSE 10 G/15 ML UDC (PYXIS) PO SCH ×4 (05:59→23:36)
--- NOTE | 2019-08-14 07:00 | NUR ---
MARKETING ASSISTANT RETAIL DIVISION NOTES RECEIVED PT ON BED WITH EYES CLOSED , INTUBATED, ON VENTILATOR AC SETTINGS, ON ETT 7.5 AT 22CM AT THE LIPS, TOLERATING THE SETTING WELL, ON TELE A.FIB HR IN 100'S , HOB ELEVATED AT ALL TIMES , ,OGT NEPRO AT 45CC/HR RUNNING , WELL TOLERATED NO RESIDUAL NOTED . R UPPER ARM PICC LINE SITE , CLEAN, DRY AND INTACT, DIPRIVAN DRIP AT 25MCG /HR INFUSING WELL, DOPAMINE AT 2 MCG/KG/ MIN RUNNING , HD CATH ON RIGHT GROIN INTACT. [place] DRAINING TO GRAVITY WITH SMALL AMOUNT OF URINE, PTS ON BILATERAL SOFT WRIST RESTRAINT TO PREVENT FROM PULLING INVASIVE TUBING , SR UP x3, CALL LIGHT WITHIN EASY REACH, BED LOCKED AND IN LOWEST POSITION, TURN AND REPOSITIONED WELL CONTINUE TO MONITOR .
--- NOTE | 2019-08-14 07:19 | NUR ---
ENDORSE PTS TO RN ADEL FOR CONTINUITY OF CARE , PTS REMAINS ON VENT DEPENDENT AC SETTINGS WELL TOLERATED , REMAINS ON DIPRIVAN DRIP AT 25MCG /HR , AND DOPAMINE DRIP AT 2MCG /HR.
[2019-08-14] MEDS: PIPERACILLIN /TAZOBACTAM 2.25 G in IV D5W 50 ML IV SCH (08:10)
[2019-08-14] MEDS: CLOTRIMAZOLE/BETAMETASONE DIPROPIONATE 15 GM TUBE TP SCH ×2 (08:11→16:02)
[2019-08-14] MEDS: HYDROGEL DRESSING 90 GM TUBE TP SCH (08:11)
[2019-08-14] MEDS: Z GUARD REMEDY 2 OZ OINT TP PRN (08:11)
[2019-08-14] MEDS: NYSTATIN TOP POWDER 15 GM BOTTLE TP SCH ×2 (08:12→16:02)
[2019-08-14] MEDS: ESOMEPRAZOLE MAGNESIUM 40 MG SUSPDR.PKT GT SCH (08:39)
[2019-08-14] MEDS: POTASSIUM CHLORIDE 20 MEQ POWDER PACKET GT SCH ×2 (09:05→09:54)
[2019-08-14 09:51] LABS: ABG BASE EXCESS 2.9 mmol/L; ABG OXYGEN SATURATION 96.2 % (92.0-98.5); ABG PCO2 40.5 mmHg (35.0-45.0); ABG PH 7.445 (7.350-7.450); ABG PO2 89.6 mmHg (75.0-100.0); COHb 0.2 % (0.5-1.5); MetHb 0.6 % (0.0-1.5); O2Hb 95.4 % (94.0-97.0); SITE, ABG Left Radial; VENT MODE, BG AC 16 550 40% 0
--- NOTE | 2019-08-14 10:00 | NUR ---
RN NOTES DR GUZMAN NOTIFED REGARDING ABG RESULT , NO CHANGES , CONTINUE TO MONITOR .
[2019-08-14] MEDS: DOPamine 400 MG in IV D5W 250 ML IV PRN (10:21)
[2019-08-14] MEDS: NEPRO 1,000 ML BOTTLE GT PRN (14:46)
--- NOTE | 2019-08-14 15:00 | NUR ---
RN NOTES PT RECEIVING HD , VSS STABLE, CONTINUE TO MONITOR .
--- NOTE | 2019-08-14 17:25 | NUR ---
RT RECD PT INTUBATED WITH 7.5CM AT 22CM LIP LINE ON [facility] VENT TOLD ORDERED SETTINGS ALARMS ON AND AUDIBLE BAG & MASK AT HOB ABG DONE NO VENT CHANGES ATT. NO RESP DISTRESS NOTED THROUGHOUT SHIFT ETT TUBE PULLED OUT 2CM PER MD ORDERS FROM 22CM TO 20CM AT LIP AND IN A LINE Addendum: 08/14/19 at 1728 by RODRIGO MARTINEZ RT Amended: Links added.
--- NOTE | 2019-08-14 18:40 | NUR ---
RN NOTES PT STILL SEDATED AND INTUBATED, TOLERATING VENT SETTING WELL, ON DOPAMINE AT 1 MCG/KG/ MIN , HD DONE ON THIS SHIFT , [place] DRINING TO GRAVITY WITH SMALL AMOUNT OF URINE, ONE LARGE LIQUIDLY BM NOTED ON THIS. SR UP x3, CALL LIGHT WITHIN EASY REACH, BED LOCKED AND IN LOWEST POSITION, WILL ENDOSE TO BUCKLE AND BUTTON MAKER NURSE FOR CONTINUITY OF CARE.
--- NOTE | 2019-08-14 19:46 | NUR ---
GROUP DYNAMICS INSTRUCTOR. INITIAL ASSESSMENT, RECEIVED THE PT REST ON THE BED. ORALLY INTUBATED. SEDATED NHUNG DIPRIVAN ETT 7.5.LIP 20,AC16TV 550,FIO2 40%,SAT 98%. NO ACUTE DISTRESS NOTED.OGT INTACT. NEPRO 45ML/H,FC PATENT. HOB ELEAVTED.RESIDENT SERVICES DIRECTOR SHOWING IN AND OUT TERESA,A FLUTTER AND AFIB. CONTROLLED. IV RT FEMORAL HD CATH RT UPPER ARM PICC LINE. DIPRIVAN 30MCG/KG/MIN,DOPAMINE 1MCG/KG/MIN,CVP CONNECTED TO PICC LINE. ALVARO SOFT WRIST RESTRAINT CHECKED AND RELEASED. NO INJURY OR REDNESS NOTED. PER MD NOTE MULTIPLE WOUNDS, WILL CONTINUE TO MONITOR VITALS,
[2019-08-15] VITALS (72 sets, daily range): BP systolic 92–144; BP diastolic 43–96
--- NOTE | 2019-08-15 05:02 | NUR ---
YARDER. AM CARE. ORAL CARE, BED BATH GIVEN. LINEN CHANGED. REMAINING SAME VENT SETTING TOLERATED WELL. SAT 98%, NO ACUTE DISTRESS NOTED. CURATOR SHOWING AFLUTTER AT THIS TIME. OGT FEEDING TOLERATED WELL. FC PATENT. HOB ELEVATED TURN AND REPOSITION Q2H, ALVARO SOFT WRIST RESTRAINT CHECKED AND RELEASED. NO INJURY OR REDNESS NOTED. WILL CONTINUE TO MONITOR VITALS.
[2019-08-15 05:18] LABS: BASOPHILS % (AUTO) 0.3 % (0.0-2.0); EOSINOPHILS % (AUTO) 7.2 % (0.0-6.0); HEMATOCRIT 28 % (33-45); HEMOGLOBIN 9.4 g/dL (11.5-14.8); LYMPHOCYTES # (AUTO) 0.7 /CMM (0.8-4.8); LYMPHOCYTES % (AUTO) 6.4 % (20.0-44.0); MEAN CORPUSCULAR HGB CONC 33 g/dl (31.0-36.0); MEAN CORPUSCULAR VOLUME 96 fL (82-100); MONOCYTES # (AUTO) 0.8 /CMM (0.1-1.30); MONOCYTES % (AUTO) 6.8 % (2.0-12.0); NEUTROPHILS # (AUTO) 9.3 /CMM (1.8-8.9); NEUTROPHILS % (AUTO) 79.3 % (43.0-81.0); PLATELET COUNT (AUTO) 78 /CMM (150-450); RED BLOOD CELL COUNT(AUTO) 2.96 MIL/uL (4.0-5.2); WHITE BLOOD COUNT (AUTO) 11.7 K/uL (4.3-11.0)
[2019-08-15] MEDS: BLOOD SUGAR DIAGNOSTIC 1 EACH STRIP IN SCH ×3 (05:41→17:08)
[2019-08-15] MEDS: PROPOFOL 100 ML IV PRN ×6 (05:41→20:50)
[2019-08-15] MEDS: LACTULOSE 10 G/15 ML UDC (PYXIS) PO SCH ×3 (06:16→17:08)
--- NOTE | 2019-08-15 06:52 | NUR ---
horticultural manager. dialysis started at 0510
--- NOTE | 2019-08-15 07:00 | NUR ---
RN NOTES RECEIVED PT ON BED , ORALLY INTUBATED. SEDATED ON DIPRIVAN , ETT 7.5.LIP 20, AC16 TV 550, FIO2 40%, SAT 98%. NO DISTRESS NOTED, NEPRO 45ML/H RUNNING VIA OGT ,HOB ELEVATED, DE [place] FUENTE DRINING TO GRAVITY, VAT HOUSE LABORER SHOWING IN AND OUT TERESA,A FLUTTER AND A. FIB. CONTROLLED. RT FEMORAL HD CATH SITE CLEAN , DRY , INTACT, PT RECEIVING HD AT THIS TIME, RT UPPER ARM PICC LINE. DIPRIVAN 30MCG/KG/MIN,DOPAMINE 1MCG/KG/MIN,CVP CONNECTED TO PICC LINE. ALVARO SOFT WRIST RESTRAINT CHECKED AND RELEASED. SR UP x3, CALL LIGHT WITHIN EASY REACH, BED LOCKED AND IN LOWEST POSITION, CONTINUE TO MONITOR .
[2019-08-15 07:27] LABS: EOSINOPHILS % (MANUAL) 6 % (0-4); LYMPHOCYTES % (MANUAL) 4 % (16-48); MONOCYTES % (MANUAL) 6 % (0-11.0); NEUTROPHILS % (MANUAL) 84 (42-76)
[2019-08-15] MEDS: NYSTATIN TOP POWDER 15 GM BOTTLE TP SCH ×2 (08:12→16:22)
[2019-08-15] MEDS: CLOTRIMAZOLE/BETAMETASONE DIPROPIONATE 15 GM TUBE TP SCH ×2 (08:12→16:22)
[2019-08-15] MEDS: HYDROGEL DRESSING 90 GM TUBE TP SCH (08:12)
[2019-08-15] MEDS: ESOMEPRAZOLE MAGNESIUM 40 MG SUSPDR.PKT GT SCH (08:46)
[2019-08-15 08:54] LABS: CALCIUM, SERUM 8.2 mg/dL (8.5-10.1); CREATININE 1.1 mg/dL (0.6-1.3); MAGNESIUM 2.2 mg/dL (1.8-2.4); PHOSPHORUS 3.1 mg/dL (2.5-4.9); POTASSIUM 3.5 mmol/L (3.5-5.1)
[2019-08-15] MEDS ORDERED: HEPARIN SODIUM, PORCINE 5000 UNITS/1 ML VIAL SQ SCH (09:00)
[2019-08-15] MEDS: DOPamine 400 MG in IV D5W 250 ML IV PRN (10:17)
--- NOTE | 2019-08-15 11:00 | NUR ---
RN NOTES US GUIDED THORACENTESIS CAN BE DONE ON SATURDAY PER DR SLADE ORDER .
--- NOTE | 2019-08-15 11:20 | NUR ---
RN NOTES HD DONE, VSS STABLE, CONTINUE TO MONITOR .
--- NOTE | 2019-08-15 11:47 | NUR ---
RN NOTES LACTULOSE HELD PER DR PETERS ORDER.
--- NOTE | 2019-08-15 11:50 | NUR ---
Spoke to LAURO Mcgarry regarding U/S Guided Thoracentesis and she spoke to ordering physician that it is ok for procedure to be done on Mon (08/17). No radiologist on site today, also contacted on-call radiologist and he asked if it can also be done on that day as well.
--- NOTE | 2019-08-15 14:00 | NUR ---
RN NOTES PT STILL OF DOPAMINE, VSS STABLE, TOLERING TF WELL, CONTINUE TO MONITOR .
[2019-08-15] MEDS ORDERED: MEROPENEM 1 G in IV NS 0.9% 100 ML IV ONE (15:30)
[2019-08-15] MEDS: MEROPENEM 1 G in IV NS 0.9% 100 ML IV SCH (16:22)
[2019-08-15] MEDS: NEPRO 1,000 ML BOTTLE GT PRN (16:29)
--- NOTE | 2019-08-15 18:00 | NUR ---
RN NOTES PT STILL SEDATED AND OFF DOPAMINE, BP STABLE, ONE LOOSE STOOL NOTED, R UPPER ARM PICC LINE INTACT ,DE [place] FU[place]E DRINING TO GRAVITY, SR UP x3, CALL LIGHT WITHIN EASY REACH, BED LOCKED AND IN LOWEST POSITION, WILL ENDORSE TO CONTROL SYSTEM MANAGER NURSE FOR CONTINUITY OF CARE .
--- NOTE | 2019-08-15 19:23 | NUR ---
WORLD DESIGNER. INITIAL ASSESSMENT. RECEIVED THE PT REST ON THE BED. ORALLY INTUBATED. SEDATED WITH DIPRIVAN. ETT 7.5CM, LIP 20CMAC 16,TV 550,FIO2 40%. SAT 98%. NO ACUTE DISTRESS NOTED. ORTHOTIC PRACTITIONER SHOWING A FIB A FLUTTER OGT INTACT, NEPRO 45 ML/H,RT FEMORAL HD CATH INTACT. RT UPPER ARM PICC LINE DIPRIVAN 20MCG/KG/MIN. HOB ELEVATED. ALVARO SOFT WRIST RESTRAINT CHECKED AND RELEASED. NO INJURY OR REDNESS NOTED. HOB ELEVATED. WILL CONTINUE TO MONITOR VITALS.
[2019-08-16] VITALS (29 sets, daily range): BP systolic 88–140; BP diastolic 47–70
[2019-08-16] MEDS: LACTULOSE 10 G/15 ML UDC (PYXIS) PO SCH ×4 (01:15→17:00)
[2019-08-16] MEDS: PROPOFOL 100 ML IV PRN ×5 (01:15→21:44)
[2019-08-16] MEDS: BLOOD SUGAR DIAGNOSTIC 1 EACH STRIP IN SCH ×4 (01:16→17:55)
[2019-08-16] MEDS: MEROPENEM 1 G in IV NS 0.9% 100 ML IV SCH ×2 (04:59→16:15)
[2019-08-16 05:22] LABS: BASOPHILS % (AUTO) 0.4 % (0.0-2.0); EOSINOPHILS % (AUTO) 5.5 % (0.0-6.0); HEMATOCRIT 29 % (33-45); HEMOGLOBIN 9.6 g/dL (11.5-14.8); LYMPHOCYTES # (AUTO) 0.9 /CMM (0.8-4.8); LYMPHOCYTES % (AUTO) 7.3 % (20.0-44.0); MEAN CORPUSCULAR HGB CONC 33 g/dl (31.0-36.0); MEAN CORPUSCULAR VOLUME 95 fL (82-100); MONOCYTES # (AUTO) 0.6 /CMM (0.1-1.30); MONOCYTES % (AUTO) 5.4 % (2.0-12.0); NEUTROPHILS # (AUTO) 9.6 /CMM (1.8-8.9); NEUTROPHILS % (AUTO) 81.4 % (43.0-81.0); PLATELET COUNT (AUTO) 82 /CMM (150-450); RED BLOOD CELL COUNT(AUTO) 3.02 MIL/uL (4.0-5.2); WHITE BLOOD COUNT (AUTO) 11.8 K/uL (4.3-11.0)
[2019-08-16 05:37] LABS: CALCIUM, SERUM 8.7 mg/dL (8.5-10.1); MAGNESIUM 2.2 mg/dL (1.8-2.4); PHOSPHORUS 2.7 mg/dL (2.5-4.9); POTASSIUM 3.6 mmol/L (3.5-5.1)
[2019-08-16 05:49] LABS: LYMPHOCYTES % (MANUAL) 6 % (16-48); MONOCYTES % (MANUAL) 4 % (0-11.0)
[2019-08-16 05:50] LABS: EOSINOPHILS % (MANUAL) 3 % (0-4); NEUTROPHILS % (MANUAL) 87 (42-76)
--- NOTE | 2019-08-16 06:20 | NUR ---
GOLF COURSE ASSISTANT. AM CARE, ORAL CARE, BED BATH GIVEN LINEN CHANGED, REMAINING SAME VENT SETTING TOLERATED W ELL. SAT 98%.KISS MIXER SHOWING AFIB, AT THE TIME. OGT FEEDING TOLERATED W ELL. FC PATENT. DIPRIVAN 15MCG/KG/MIN. HOB ELEVATED TURN AND REPOSITION Q2H. WILL CONTINUE TO MONITOR VITALS.
--- NOTE | 2019-08-16 07:26 | NUR ---
AERIAL CROP DUSTER NOTES RECEIVED BEDSIDE REPORT ORALLY INTUBATED. SEDATED ON DIPRIVAN , ETT 7.5.LIP 20, AC16 TV 550, FIO2 40%, PEEP 0 SAT 99%. NO DISTRESS NOTED, NEPRO 45ML/H RUNNING VIA OGT ,HOB ELEVATED, DE [place] FU[place]E CATH DRAINING TO GRAVITY SMALL AMOUNT OF URINE,SINUS WITH EPISODES OF AFIB /AFLUTTER CONTROLLED. RT FEMORAL HD CATH DRESSING INTACT WITH SMALL AMOUNT OF DRY BLOOD WILL ENDORSE TO HD FOR DRESSING CHANGE HD ORDERED DAILY RT UPPER ARM PICC LINE. DIPRIVAN @15MCG/MIN ,CVP CONNECTED TO PICC LINE. ALVARO SOFT WRIST RESTRAINT CHECKED AND RELEASED HOB ELEVATED SR UP x3,ASPIRATION AND SAFETY PRECAUTIONS IN PLACE. UNABLE TO USE CALL LIGHT HOURLY ROUNDING TO BE DONE BED LOCKED AND IN LOWEST POSITION, WILL CONT TO MONITOR ACCORDINGLY
--- NOTE | 2019-08-16 09:00 | NUR ---
PATIENT RECEIVING HEMO DIALYSIS
--- NOTE | 2019-08-16 09:15 | NUR ---
CALLED PHARMACY FOR NEXIUM
[2019-08-16] MEDS: NYSTATIN TOP POWDER 15 GM BOTTLE TP SCH ×2 (09:38→16:15)
[2019-08-16] MEDS: CLOTRIMAZOLE/BETAMETASONE DIPROPIONATE 15 GM TUBE TP SCH ×2 (09:38→16:15)
[2019-08-16] MEDS: HYDROGEL DRESSING 90 GM TUBE TP SCH (09:38)
[2019-08-16] MEDS: ESOMEPRAZOLE MAGNESIUM 40 MG SUSPDR.PKT GT SCH (09:53)
--- NOTE | 2019-08-16 11:36 | NUR ---
PER DR MEDINA NOTES DIFFER THORACENTESIS AT THIS TIME RIGHT EFFUSION IS GETTING BETTER BUT PROGNOSIS IS POOR
[2019-08-16] MEDS: INSULIN REGULAR, HUMAN 100 UNIT/ML 3 ML VIAL SQ PRN ×2 (12:32→17:56)
[2019-08-16] MEDS: NEPRO 1,000 ML BOTTLE GT PRN (18:01)
[2019-08-16] MEDS: CEFEPIME 1 GM in IV D5W 50 ML IV SCH (18:35)
--- NOTE | 2019-08-16 18:40 | NUR ---
EXPERIMENTAL PREFLIGHT MECHANIC NOTES NO SIGNIFICANT CHANGES THROUGHOUT SHIFT. NO EPISODES OF RESPIRATORY DISTRESS TOLERATING VENT SETTINGS ORDERED. NO S/S OF PAIN NOTED. SINUS RHYTHM WITH EPISODES OF AFIB/AFLUTTER CONTROLLED. REMAINS SEDATED ON DIPRIVAN 15 MCG/MIN VIA BRIAN PICC. RIGHT FEMORAL HD CATH DRESSING CHANGED BY HD TECH. BED BATH AND WOUND CARE DONE ORDERED ORAL CARE DONE SMALL AMOUNT OF BLEEDING NOTED FROM MOUTH. OGT RUNNING NEPRO @ 45 ML/HR TOLERATING WELL WITH NO RESIDUAL. DE [place] FUENTE CATH DRAINING DARK YELLOW URINE MINIMAL AMOUNT. DIALYSIS TODAY WITH 2500 ML REMOVED. SAFETY AND ASPIRATION PRECAUTIONS IN PLACE BED IN LOW LOCKED POSITION WILL ENDORSE TO NOC
--- NOTE | 2019-08-16 19:30 | NUR ---
CABINET ABRASIVE SANDBLASTER INITIAL SHIFT NOTES RECEIVED PATIENT IN BED, SEDATED ON DIPRIVAN DRIP. PATIENT ORALLY INTUBATED, ETT 7.5, 20CM AT LIP LINE, ON MECHANICAL VENTILATION WITH SETTINGS: AC 16, TV 550, FIO2 40%, NO PEEP. PATIENT TOLERATING VENT SETTINGS WELL, FREE FROM ANY S/S OF RESPIRATORY DISTRESS. BEDSIDE BOATSWAIN MATE SHOWS AFIB/AFLUTTER, HR CURRENTLY 95 BPM. BRIAN PICC PATENT AND INTACT, DIPRIVAN GTT @ 15MCG/KG/MIN. RIGHT FEMORAL HD CATHETER INTACT, DRESSING CLEAN DRY AND INTACT, NO BLEEDING NOTED AT SITE. PATIENT ON BARIMAXX BED. DE [place] FU[place] CATHETER PATENT AND INTACT, DRAINING VIA GRAVITY. BED LOCKED, LOW, KEPT IN SEMI-FOWLERS POSITION.
[2019-08-17] VITALS (18 sets, daily range): BP systolic 94–123; BP diastolic 42–61
[2019-08-17] MEDS: IV NS 0.9% 250 ML IV PRN (00:06)
[2019-08-17] MEDS: LACTULOSE 10 G/15 ML UDC (PYXIS) PO SCH ×5 (00:06→23:05)
[2019-08-17] MEDS: BLOOD SUGAR DIAGNOSTIC 1 EACH STRIP IN SCH ×5 (00:06→23:05)
[2019-08-17] MEDS: CEFEPIME 1 GM in IV D5W 50 ML IV SCH ×3 (01:17→20:12)
--- NOTE | 2019-08-17 04:00 | NUR ---
STOCKROOM CLERK NOTES FULL BED BATH RENDERED. ALL WOUND CARE DONE, PATIENT TOLERATED WELL. SKIN ISSUES PHOTOGRAPHED AND DOCUMENTED PER PROTOCOL. WILL CONTINUE TO CLOSELY MONITOR
[2019-08-17] MEDS: PROPOFOL 100 ML IV PRN ×4 (04:04→23:05)
[2019-08-17 04:21] LABS: BASOPHILS # (AUTO) 0.1 /CMM (0.0-0.2); BASOPHILS % (AUTO) 0.5 % (0.0-2.0); EOSINOPHILS % (AUTO) 6.4 % (0.0-6.0); HEMATOCRIT 28 % (33-45); HEMOGLOBIN 9.5 g/dL (11.5-14.8); LYMPHOCYTES # (AUTO) 0.7 /CMM (0.8-4.8); LYMPHOCYTES % (AUTO) 6.4 % (20.0-44.0); MEAN CORPUSCULAR HGB CONC 34 g/dl (31.0-36.0); MEAN CORPUSCULAR VOLUME 96 fL (82-100); MONOCYTES # (AUTO) 0.9 /CMM (0.1-1.30); MONOCYTES % (AUTO) 8.5 % (2.0-12.0); NEUTROPHILS % (AUTO) 78.2 % (43.0-81.0); PLATELET COUNT (AUTO) 88 /CMM (150-450); RED BLOOD CELL COUNT(AUTO) 2.87 MIL/uL (4.0-5.2); WHITE BLOOD COUNT (AUTO) 10.2 K/uL (4.3-11.0)
[2019-08-17 04:29] LABS: CALCIUM, SERUM 8.4 mg/dL (8.5-10.1); CREATININE 1.1 mg/dL (0.6-1.3); MAGNESIUM 2.3 mg/dL (1.8-2.4); PHOSPHORUS 3.4 mg/dL (2.5-4.9); POTASSIUM 3.6 mmol/L (3.5-5.1)
[2019-08-17 05:01] LABS: EOSINOPHILS % (MANUAL) 8 % (0-4); LYMPHOCYTES % (MANUAL) 5 % (16-48); MONOCYTES % (MANUAL) 5 % (0-11.0); NEUTROPHILS % (MANUAL) 82 (42-76)
--- NOTE | 2019-08-17 07:30 | NUR ---
ASSUMED CARE FOR PATIENT INTUBATED ON WEB ANALYTICS SPECIALIST NO NOTED DISTRESS AT THIS TIME.
--- NOTE | 2019-08-17 07:35 | NUR ---
CERTIFIED MEDICAL RECORDS CODER CLOSING NOTES PATIENT RESTING COMFORTABLY IN BED, NO FACIAL GRIMACE NOTED, SEDATED ON DIPRIVAN @ 15MCG/KG/MIN. CONTINUES ON MECHANICAL VENTILATION AT PRESCRIBED SETTINGS VIA ET TUBE, TOLERATING WELL, NO SIGNS AND SYMPTOMS OF RESPIRATORY DISTRESS NOTED. WILL ENDORSE THE PATIENT TO THE AM SHIFT NURSE FOR CONTINUITY OF CARE
[2019-08-17 09:33] LABS: ABG BASE EXCESS 2.6 mmol/L; ABG OXYGEN SATURATION 96.7 % (92.0-98.5); ABG PH 7.444 (7.350-7.450); AaDO2 143.2 mmHg; COHb 0.1 % (0.5-1.5); MetHb 0.6 % (0.0-1.5); SITE, ABG Left Radial
[2019-08-17] MEDS: ESOMEPRAZOLE MAGNESIUM 40 MG SUSPDR.PKT GT SCH (09:53)
[2019-08-17] MEDS: HYDROGEL DRESSING 90 GM TUBE TP SCH (09:53)
[2019-08-17] MEDS: CLOTRIMAZOLE/BETAMETASONE DIPROPIONATE 15 GM TUBE TP SCH ×2 (09:53→16:38)
[2019-08-17] MEDS: NYSTATIN TOP POWDER 15 GM BOTTLE TP SCH ×2 (09:55→17:00)
[2019-08-17] MEDS ORDERED: LACTULOSE 10 G/15 ML UDC (PYXIS) PO PRN (12:00)
--- NOTE | 2019-08-17 15:48 | NUR ---
pATIENT WAS RECEIVING HEMO DIALYSIS WHEN RADIOLOGY ARRIVE TO PERFORM U/S GUIDED THORACENTESIS TECH STS MD WAS ABLE TO WAIT 40 MINUTES UNTIL DIALYSIS WAS COMPLETED AND WILL TRY AGAIN IN THE AM TO DO PROCEDURE
[2019-08-17] MEDS: VITAMINS A AND D 56.7 GM TUBE TP PRN (16:38)
--- NOTE | 2019-08-17 19:00 | NUR ---
PRESSER AND SHAPER KNITTED GOODS NOTES CALLED PHARMACY TO DELIVER 6PM DOSE OF MAXIPIME IV, NOT IN [place] OR [place]. PER PHARMACY, THEY WILL DELIVER SHORTLY. AWAITING DELIVERY OF MEDICATION
--- NOTE | 2019-08-17 19:30 | NUR ---
HEALTH TECHNICIAN INITIAL SHIFT NOTES RECEIVED PATIENT IN BED, SEDATED ON DIPRIVAN GTT, CURRENTLY @ 10MCG/KG/MIN. RESTRAINTS DC'D BY DAY SHIFT NURSE, WILL MONITOR CLOSELY FOR NEED IF PATIENT STARTS REACHING FOR ET TUBE. ORALLY INTUBATED, ETT 7.5, 20CM AT LIP LINE, ON MECHANICAL VENTILATOR SETTINGS: AC 16, TV 550, FIO2 40%, NO PEEP. OGT PATENT AND INTACT, ONGOING TUBE FEEDINGS, TOLERATING WELL, MINIMAL GASTRIC RESIDUALS NOTED. BRIAN PICC DRESSING SOILED, CHANGED. PICC PATENT AND INTACT, RUNNING DIPRIVAN DRIP. CVP MONITORING, LEVEL 8 AT THIS TIME. [place] CATHETER PATENT AND INTACT, DRAINING CLEAR YELLOW URINE WITH SEDIMENTS VIA GRAVITY. ON BARIMAXX BED, SET TO AUTOMATIC TURNING MODE. ASPIRATION PRECAUTIONS OBSERVED, HOB ELEVATED. WILL CONTINUE TO CLOSELY MONITOR
[2019-08-18] VITALS (25 sets, daily range): BP systolic 87–110; BP diastolic 36–61
--- NOTE | 2019-08-18 | NUR ---
SPRAY BLENDER NOTES PATIENT RESTING IN BED, APPEARS COMFORTABLE. SEDATED ON DIPRIVAN, DRIP AT AT 10MCG/KG/MIN. WILL CONTINUE TO CLOSELY MONITOR.
[2019-08-18] MEDS: CEFEPIME 1 GM in IV D5W 50 ML IV SCH ×3 (02:54→17:31)
[2019-08-18] MEDS: IV NS 0.9% 250 ML IV PRN (03:00)
--- NOTE | 2019-08-18 04:00 | NUR ---
KRAFT DIGESTER OPERATOR NOTES FULL BED BATH RENDERED, ALL WOUND CARE DONE. PATIENT TOLERATED WELL, NO SIGNS AND SYMPTOMS OF DISTRESS NOTED
[2019-08-18 04:08] LABS: BASOPHILS # (AUTO) 0.1 /CMM (0.0-0.2); BASOPHILS % (AUTO) 0.7 % (0.0-2.0); EOSINOPHILS % (AUTO) 8.4 % (0.0-6.0); HEMATOCRIT 27 % (33-45); LYMPHOCYTES # (AUTO) 0.7 /CMM (0.8-4.8); MEAN CORPUSCULAR HGB CONC 34 g/dl (31.0-36.0); MEAN CORPUSCULAR VOLUME 97 fL (82-100); MONOCYTES # (AUTO) 0.7 /CMM (0.1-1.30); MONOCYTES % (AUTO) 9.1 % (2.0-12.0); NEUTROPHILS # (AUTO) 5.9 /CMM (1.8-8.9); NEUTROPHILS % (AUTO) 72.8 % (43.0-81.0); PLATELET COUNT (AUTO) 95 /CMM (150-450); RED BLOOD CELL COUNT(AUTO) 2.76 MIL/uL (4.0-5.2)
[2019-08-18 04:54] LABS: CALCIUM, SERUM 8.7 mg/dL (8.5-10.1); CREATININE 1.2 mg/dL (0.6-1.3); MAGNESIUM 2.5 mg/dL (1.8-2.4); PHOSPHORUS 3.5 mg/dL (2.5-4.9); POTASSIUM 3.8 mmol/L (3.5-5.1)
[2019-08-18] MEDS: BLOOD SUGAR DIAGNOSTIC 1 EACH STRIP IN SCH ×3 (06:01→17:52)
[2019-08-18] MEDS: PROPOFOL 100 ML IV PRN ×3 (06:03→21:47)
[2019-08-18] MEDS: LACTULOSE 10 G/15 ML UDC (PYXIS) PO SCH ×4 (06:07→16:46)
--- NOTE | 2019-08-18 07:00 | NUR ---
MANAGER INTERMEDIATE CLOSING NOTES PATIENT REMAINS IN BED, ORALLY INTUBATED ON MECHANICAL VENTILATOR, CONTINUES ON DIPRIVAN DRIP @ 10MCG/KG/MIN. WILL ENDORSE TH EPATIENT TO THE AM SHIFT NURSE FOR CONTINUITY OF CARE
--- NOTE | 2019-08-18 07:30 | NUR ---
RECEIVED PATIENT IN BED, SEDATED WITH DIPRIVAN AT 10MCG/MIN. INTUBATED WITH ETT 7.5 AT 20CM ON THE LIP. ON VENT WITH THE FOLLOWING SETTINGS AC 16, TV AT 550, FI02 AT 40%, 0 PEEP. TOLERATING CURRENT VENT SETTINGS. SATING FINE NOT ON ANY FOR OF DISTRESS. CVP READING AT 11 AT THIS TIME. OGT IN PLACE, PLACEMENT CONFIRMED BY ASPIRATING GASTRIC RESIDUAL, MINIMAL GASTRIC RESIDUAL TAKEN AT THIS TIME. WITH ONGOING FEEDING: NEPRO AT 45 CC/HR. HOB KEPT ELEVATED FOR ASPIRATION PNEUMONIA. BRIAN PICC LINE NOTED, IN PLACE, DRESSING INTACT.NO SIGN OF INFECTION NOTED AT THIS TIME. [place] CATHETER IN PLACE DRAINING VIA GRAVITY TO TEA COLORED URINE. SAFETY MEASURES OBSERVED AND MAINTAINED. BED IN LOW AND LOCK POSITIONED. CALL LIGHT PLACED WITHIN REACHED. WILL CONTINUE TO MONITOR PATIENT AND MONITOR CLOSELY
[2019-08-18 08:00] LABS: EOSINOPHILS % (MANUAL) 10 % (0-4); LYMPHOCYTES % (MANUAL) 8 % (16-48); MONOCYTES % (MANUAL) 7 % (0-11.0); NEUTROPHILS % (MANUAL) 75 (42-76)
[2019-08-18] MEDS: HYDROGEL DRESSING 90 GM TUBE TP SCH (09:36)
[2019-08-18] MEDS: NYSTATIN TOP POWDER 15 GM BOTTLE TP SCH ×2 (09:36→16:47)
[2019-08-18] MEDS: CLOTRIMAZOLE/BETAMETASONE DIPROPIONATE 15 GM TUBE TP SCH ×2 (09:36→16:46)
[2019-08-18] MEDS: ESOMEPRAZOLE MAGNESIUM 40 MG SUSPDR.PKT GT SCH (11:00)
--- NOTE | 2019-08-18 17:02 | NUR ---
RT END OF THE SHIFT REPORT, PT. 59 Y OLD FEMALE RECEIVED ORALLY INTUBATED 7.5 ETT@20CM ON VENT WITH NOTED SETTINGS. EQUAL CHEST RISE NOTED B/S BILATERALLY RALES/RHONCHI SUX'D FOR MOD. AMT OF SECRETIONS, NO DISTRESS NOTED T/O DAY. HME CHANGED BREAKER MACHINE OPERATOR DONE. NO CHANGES T/O DAY. VENT PLUGGED INTO RED OUT LET. AMBU BAG AT BEDSIDE. WILL CONTINUE TO MONITOR. REPORT WILL PASS TO PM SHIFT. Addendum: 08/18/19 at 1707 by SHANNEN PRAKASH RT Amended: Links added.
--- NOTE | 2019-08-18 19:11 | NUR ---
RN NOTES ENDORSED PATIENT FOR CONTINUITY OF CARE. NOT ON ANY FORM OF DISTRESS. BREATHING UNLABORED. NO INDICATION OF PAIN NOTED AT THIS TIME. ALL NURSING NEEDS ATTENDED AND MET. HOB KEPT ELEVATED. SAFETY MEASURES IN PLACE AT ALL TIMES. CALL LIGHT WITHIN REACH
--- NOTE | 2019-08-18 19:30 | NUR ---
RISK SPECIALIST INITIAL SHIFT NOTES RECEIVED PATIENT IN BED, SEDATED ON DIPRIVAN GTT, CURRENTLY @ 10MCG/KG/MIN. ORALLY INTUBATED, ETT 7.5, 20CM AT LIP LINE, ON MECHANICAL VENTILATOR SETTINGS: AC 16, TV 550, FIO2 40%, NO PEEP. OGT PATENT AND INTACT, ONGOING TUBE FEEDINGS, TOLERATING WELL, MINIMAL GASTRIC RESIDUALS NOTED. BRIAN PICC PATENT AND INTACT, RUNNING DIPRIVAN DRIP. CVP MONITORING, LEVEL 8 AT THIS TIME. [place] CATHETER PATENT AND INTACT, DRAINING CLEAR YELLOW URINE WITH SEDIMENTS VIA GRAVITY. ON BARIMAXX BED, SET TO AUTOMATIC TURNING MODE. ASPIRATION PRECAUTIONS OBSERVED, HOB ELEVATED. WILL CONTINUE TO CLOSELY MONITOR
--- NOTE | 2019-08-18 22:00 | NUR ---
COIL CONNECTOR NOTES PATIENT NOTED WITH LARGE, LOOSE STOOL. FULL BED BATH GIVEN, ALL WOUND CARE RENDERED, WILL MONITOR CLOSELY
[2019-08-19] VITALS (37 sets, daily range): BP systolic 97–136; BP diastolic 48–80
--- NOTE | 2019-08-19 | NUR ---
CLIENT CARE MANAGER NOTES PATIENT RESTING IN BED, APPEARS COMFORTABLE, NO ACUTE DISTRESS NOTED AT THIS TIME, TOLERATING MECHANICAL VENTILATION WELL, SEDATED ON DIPRIVAN, WILL CONTINUE TO CLOSELY MONITOR
[2019-08-19] MEDS: BLOOD SUGAR DIAGNOSTIC 1 EACH STRIP IN SCH ×5 (00:36→23:42)
[2019-08-19] MEDS: CEFEPIME 1 GM in IV D5W 50 ML IV SCH ×3 (02:01→17:39)
[2019-08-19] MEDS: NEPRO 1,000 ML BOTTLE GT PRN (02:01)
[2019-08-19] MEDS: IV NS 0.9% 250 ML IV PRN (02:01)
[2019-08-19] MEDS: PROPOFOL 100 ML IV PRN ×2 (03:52→10:27)
--- NOTE | 2019-08-19 04:00 | NUR ---
INTERNET MARKETING STRATEGIST NOTES FULL BED BATH RENDERED, ALL WOUND CARE DONE. WILL CONTINUE TO CLOSELY MONITOR
[2019-08-19 04:18] LABS: BASOPHILS % (AUTO) 0.3 % (0.0-2.0); EOSINOPHILS % (AUTO) 5.9 % (0.0-6.0); HEMATOCRIT 29 % (33-45); HEMOGLOBIN 9.5 g/dL (11.5-14.8); LYMPHOCYTES # (AUTO) 0.4 /CMM (0.8-4.8); MEAN CORPUSCULAR HGB CONC 33 g/dl (31.0-36.0); MEAN CORPUSCULAR VOLUME 97 fL (82-100); MONOCYTES # (AUTO) 0.7 /CMM (0.1-1.30); MONOCYTES % (AUTO) 7.9 % (2.0-12.0); NEUTROPHILS # (AUTO) 6.9 /CMM (1.8-8.9); NEUTROPHILS % (AUTO) 80.9 % (43.0-81.0); PLATELET COUNT (AUTO) 106 /CMM (150-450); RED BLOOD CELL COUNT(AUTO) 2.95 MIL/uL (4.0-5.2); WHITE BLOOD COUNT (AUTO) 8.5 K/uL (4.3-11.0)
[2019-08-19 04:48] LABS: CALCIUM, SERUM 8.6 mg/dL (8.5-10.1); CREATININE 1.1 mg/dL (0.6-1.3); MAGNESIUM 2.5 mg/dL (1.8-2.4); PHOSPHORUS 3.1 mg/dL (2.5-4.9); POTASSIUM 3.5 mmol/L (3.5-5.1)
--- NOTE | 2019-08-19 06:00 | NUR ---
CURTAIN MENDER CLOSING NOTES PATIENT RESTING IN BED, REMAINS ORALLY INTUBATED ON MECHANICAL VENTILATION. WILL ENDORSE THE PATIENT TO THE AM SHIFT NURSE FOR CONTINUITY OF CARE
--- NOTE | 2019-08-19 07:10 | NUR ---
ADVANCED PRACTICE NURSE PSYCHOTHERAPIST INITIAL NOTES: PT RECEIVED SEDATED ON DIPRIVAN DRIP. TOLERATING MECHANICAL VENT AND CURRENT SETTINGS. NO SOB OR ACUTE SIGNS OF DISTRESS NOTED. BREATHING EVEN AND UNLABORED. PT NOTED TO BE AFIB ON MONITOR. RIGHT UPPER ARM PICC LINE NOTED TO BE C/D/I. GOOD BLOOD RETURN ASSESSED. F/C NOTED TO BE INTACT AND DRAINING TO GRAVITY. CVP MONITORING CONTINUED. PT HAS A CURRENT READING OF 7. RIGHT FEMORAL HD CATH NOTED C/D/I. BED IN LOW LOCKED POSITION, SIDE RAILS, UP X2, BILATERAL SOFT RESTRAINTS NOTED. GOOD CAP REFILL, AND PULSES ASSESSED. WILL CONTINUE TO MONITOR.
--- NOTE | 2019-08-19 08:55 | NUR ---
RT PLACED PT ON SIMV 4, +5, PSV 20 PER MD ORDER. TOLERATING WELL AT THIS TIME. WILL CONTINUE TO MONITOR CLOSELY. CHITRA RESTREPO AWARE AND AT BEDSIDE. Addendum: 08/19/19 at 0917 by ALE SLAUGHTER RT Amended: Links added.
[2019-08-19] MEDS: HYDROGEL DRESSING 90 GM TUBE TP SCH (09:08)
[2019-08-19] MEDS: NYSTATIN TOP POWDER 15 GM BOTTLE TP SCH ×2 (09:08→17:40)
[2019-08-19] MEDS: CLOTRIMAZOLE/BETAMETASONE DIPROPIONATE 15 GM TUBE TP SCH ×2 (09:08→17:40)
[2019-08-19] MEDS: LACTULOSE 10 G/15 ML UDC (PYXIS) PO SCH ×3 (09:10→17:39)
[2019-08-19] MEDS: ESOMEPRAZOLE MAGNESIUM 40 MG SUSPDR.PKT GT SCH (10:26)
--- NOTE | 2019-08-19 11:57 | NUR ---
RT ABG DONE. RESULTS SHOWN TO DR. GUZMAN. NO CHANGES AT THIS TIME. CHITRA RESTREPO NOTIFIED AND AWARE. WILL CONTINUE TO MONITOR THE PATIENT CLOSELY FOR ANY CHANGES. Addendum: 08/19/19 at 1345 by ALE SLAUGHTER RT Amended: Links added.
[2019-08-19 11:58] LABS: ABG BASE EXCESS 4.1 mmol/L; ABG OXYGEN SATURATION 96.3 % (92.0-98.5); ABG PCO2 42.6 mmHg (35.0-45.0); ABG PH 7.445 (7.350-7.450); ABG PO2 90.2 mmHg (75.0-100.0); COHb 0.4 % (0.5-1.5); MetHb 0.7 % (0.0-1.5); O2Hb 95.2 % (94.0-97.0); PEEP,BG 5 cm H2O; SITE, ABG Left Radial
--- NOTE | 2019-08-19 12:12 | NUR ---
TIMBER SURVEYOR NOTES: MD ORDER RESULTS OF ABG RELAYED TO DR GUZMAN. PER MD, "NO CHANGES TO CURRENT SETTINGS, CHANGE PT TP CPAP IN AM PSV 15/5 AND REPEAT ABG 2HR AFTER"
--- NOTE | 2019-08-19 18:57 | NUR ---
STEREOPTIC PROJECTION TOPOGRAPHER CLOSING NOTES PT REMAINS STABLE ON SIMV MODE. VSS REMAIN STABLE. SHE REMAINS ON 5MIC/KG/MIN OF DIPRIVAN TO KEEP COMFORTABLE. SHE IS CURRENTLY RECEIVING HD AND TOLERATING WELL. CENTRAL LINE REMAINS PATENT AND INTACT. SAFETY MEASURES REMAIN IN PLACE. WILL ENDORSE TO NIGHTSHIFT RN FOR CHATA
--- NOTE | 2019-08-19 19:45 | NUR ---
ICU/LOCKSTITCH COAT JOINER RECEIVED REPORT FROM DAY SHIFT NURSE. SEE FLOWSHEET FOR ASSESSMENT. ALSO THERE ARE MANY SKIN ISSUES THAT PT HAS WHICH ARE ADDRESSED ON FLOWSHEET ALONG WITH THE INTERVENTION TO EACH. PT CURRENTLY HAS OG/TUBE FEEDING, MONITORING THE RESIDUALS CLOSELY. PT WAS THEN TURNED AND REPOSITIONED FOR COMFORT AND CARE. PT IS ON A BARIATRIC BIG BOY BED.
--- NOTE | 2019-08-19 22:10 | NUR ---
ICU/COMMUNITY HEALTH NURSE PT WAS GIVEN PM CARE, ALONG WITH ORAL CARE. PT TOLERATED THIS WELL. PT REMAINS ON CURRENT SIMV VENT SETTINGS WITH SATURATION AT 98-100%. PT WAS TUNED AND REPOSITIONED FOR COMFORT AND CARE. WILL CONTINUE TO MONITOR THIS PT. DRESSINGS APPEARED TO CLEAN, WILL CHANGE DRESSING AT AM BATH. NO ACUTE DISTRESS SEEN.
--- NOTE | 2019-08-19 23:45 | NUR ---
ICU/BUSINESS UNIT MANAGER PT'S MIDNIGHT BLOOD SUGAR WAS DONE, IT WAS 97. THERE IS NO COVERAGE FOR THIS. WILL CONTINUE TO MONITOR THE BLOOD SUGAR ORDERED MD AND HOSPITAL PROTOCOL. PT WAS TURNED AND REPOSITIONED FOR COMFORT AND CARE.
[2019-08-20] VITALS (52 sets, daily range): BP systolic 68–168; BP diastolic 30–89
[2019-08-20] MEDS: CEFEPIME 1 GM in IV D5W 50 ML IV SCH ×3 (01:28→17:23)
[2019-08-20] MEDS: PROPOFOL 100 ML IV PRN (01:28)
--- NOTE | 2019-08-20 02:25 | NUR ---
ICU/INTERNAL CARVER PT WAS GIVEN AM CARE, ALONG WITH ORAL CARE. PT TOLERATED THIS WELL. PT REMAINS ON CURRENT SIMV VENT SETTINGS WITH SATURATION AT 98-100%. PT WAS TUNED AND REPOSITIONED FOR COMFORT AND CARE. WILL CONTINUE TO MONITOR THIS PT. DRESSINGS CHANGE WAS DONE AT THIS TIME DURING AM BATH. NO ACUTE DISTRESS SEEN.
[2019-08-20 04:29] LABS: BASOPHILS % (AUTO) 0.4 % (0.0-2.0); EOSINOPHILS % (AUTO) 8.6 % (0.0-6.0); HEMATOCRIT 30 % (33-45); HEMOGLOBIN 9.9 g/dL (11.5-14.8); LYMPHOCYTES # (AUTO) 0.7 /CMM (0.8-4.8); LYMPHOCYTES % (AUTO) 7.3 % (20.0-44.0); MEAN CORPUSCULAR HGB CONC 34 g/dl (31.0-36.0); MEAN CORPUSCULAR VOLUME 97 fL (82-100); MONOCYTES % (AUTO) 9.9 % (2.0-12.0); NEUTROPHILS # (AUTO) 7.3 /CMM (1.8-8.9); NEUTROPHILS % (AUTO) 73.8 % (43.0-81.0); PLATELET COUNT (AUTO) 131 /CMM (150-450); RED BLOOD CELL COUNT(AUTO) 3.04 MIL/uL (4.0-5.2); WHITE BLOOD COUNT (AUTO) 9.8 K/uL (4.3-11.0)
[2019-08-20 04:41] LABS: CALCIUM, SERUM 8.6 mg/dL (8.5-10.1); CREATININE 0.9 mg/dL (0.6-1.3); MAGNESIUM 2.4 mg/dL (1.8-2.4); PHOSPHORUS 2.6 mg/dL (2.5-4.9); POTASSIUM 3.9 mmol/L (3.5-5.1)
--- NOTE | 2019-08-20 04:50 | NUR ---
ICU/BRONZE CHASER AM LABS WERE DRAWN, ALONG WITH THE AM CHEST XRAY. AWAIT FOR ANY CRITICAL LAB VALUES.
[2019-08-20] MEDS: BLOOD SUGAR DIAGNOSTIC 1 EACH STRIP IN SCH ×3 (05:31→17:29)
[2019-08-20] MEDS: NEPRO 1,000 ML BOTTLE GT PRN (05:31)
--- NOTE | 2019-08-20 06:10 | NUR ---
ICU/SENIOR OCCUPATIONAL THERAPIST PT'S MORNING BLOOD SUGAR WAS DONE, IT WAS 100. THERE IS NO COVERAGE FOR THIS. WILL CONTINUE TO MONITOR THE BLOOD SUGAR ORDERED MD AND HOSPITAL PROTOCOL. PT WAS TURNED AND REPOSITIONED FOR COMFORT AND CARE.
--- NOTE | 2019-08-20 08:22 | NUR ---
received pt from casino shift manager, calmly sedated on diprivan at 5mcg, follows simple commands, Afib, SR, A flutter, on the vent, lungs partially congested, OG to feeding, tolerates well, f/c low output, HD pt, rectal tube on lactulose, v/s stable, no pain, pt turned and repositioned.
[2019-08-20] MEDS: HYDROGEL DRESSING 90 GM TUBE TP SCH (08:34)
[2019-08-20] MEDS: CLOTRIMAZOLE/BETAMETASONE DIPROPIONATE 15 GM TUBE TP SCH ×2 (08:35→17:20)
[2019-08-20] MEDS: NYSTATIN TOP POWDER 15 GM BOTTLE TP SCH ×2 (08:35→17:20)
[2019-08-20] MEDS: LACTULOSE 10 G/15 ML UDC (PYXIS) PO SCH ×3 (08:38→17:22)
[2019-08-20] MEDS: ESOMEPRAZOLE MAGNESIUM 40 MG SUSPDR.PKT GT SCH (09:25)
[2019-08-20 10:03] LABS: ABG BASE EXCESS 3.1 mmol/L; ABG OXYGEN SATURATION 97.1 % (92.0-98.5); ABG PH 7.443 (7.350-7.450); ABG PO2 99.8 mmHg (75.0-100.0); AaDO2 138.3 mmHg; COHb 0.5 % (0.5-1.5); MetHb 0.5 % (0.0-1.5); O2Hb 96.1 % (94.0-97.0); PEEP,BG 5 cm H2O; SITE, ABG Left Radial; VENT MODE, BG CPAP PS 15
--- NOTE | 2019-08-20 10:27 | NUR ---
pt is on CPAP mode since 844, tolerating well, still lethargic, seen by Dr. Infante.
[2019-08-20] MEDS: ALBUMIN 25% 25 GM in PREMIX 1 EA IV PRN (13:18)
--- NOTE | 2019-08-20 17:18 | NUR ---
pt is resting in the bed, lethargic, A fib, A flutter, SR, on the vent CPAP mode, tolerates well, OG tube tolerates well, rectal tube in, v/s stable, no pain, pt cleaned, changed and repositioned q2hrs.
--- NOTE | 2019-08-20 19:30 | NUR ---
SHAKE BACKBOARD NOTCHER RCD PT W/DX ACUTE RESP FAIL; PT IS LETHARGIC; MIN RESPONSE TO PAINFUL STIMULI. AFIB ON MONITOR. INTUBATED ON CPAP MODE AT THIS TIME. OG TUBE WITH NEPRO @ 45 ML/HR NO RESIDUAL AT THIS TIME. DE LA FUENTE CATH DRAINING MIN AMOUNT OF DARK COLORED URINE. BRIAN PICC PATENT AND WITH GOOD BLOOD RETURN.
--- NOTE | 2019-08-20 20:00 | NUR ---
MANAGER TECHNICAL TRAINING RENDERED ORAL CARE; PLACED PT ON ROTATION MODE. CONTINUE TO MONITOR.
[2019-08-21] VITALS (25 sets, daily range): BP systolic 84–133; BP diastolic 35–95
[2019-08-21] MEDS: BLOOD SUGAR DIAGNOSTIC 1 EACH STRIP IN SCH ×6 (00:40→23:35)
--- NOTE | 2019-08-21 00:43 | NUR ---
HELP DESK CONSULTANT BLOOD GLUCOSE 114 NO COVERAGE NEEDED PER INSULIN SCALE. CONTINUE TO MONITOR.
[2019-08-21] MEDS: CEFEPIME 1 GM in IV D5W 50 ML IV SCH ×2 (02:00→09:50)
[2019-08-21 04:06] LABS: BASOPHILS % (AUTO) 0.5 % (0.0-2.0); EOSINOPHILS % (AUTO) 7.2 % (0.0-6.0); HEMATOCRIT 28 % (33-45); HEMOGLOBIN 9.4 g/dL (11.5-14.8); LYMPHOCYTES # (AUTO) 0.8 /CMM (0.8-4.8); LYMPHOCYTES % (AUTO) 8.2 % (20.0-44.0); MEAN CORPUSCULAR HGB CONC 34 g/dl (31.0-36.0); MEAN CORPUSCULAR VOLUME 98 fL (82-100); MONOCYTES # (AUTO) 1.1 /CMM (0.1-1.30); MONOCYTES % (AUTO) 10.8 % (2.0-12.0); NEUTROPHILS # (AUTO) 7.1 /CMM (1.8-8.9); NEUTROPHILS % (AUTO) 73.3 % (43.0-81.0); PLATELET COUNT (AUTO) 112 /CMM (150-450); RED BLOOD CELL COUNT(AUTO) 2.86 MIL/uL (4.0-5.2); WHITE BLOOD COUNT (AUTO) 9.7 K/uL (4.3-11.0)
[2019-08-21 04:20] LABS: CALCIUM, SERUM 8.8 mg/dL (8.5-10.1); CREATININE 1.1 mg/dL (0.6-1.3); MAGNESIUM 2.3 mg/dL (1.8-2.4); PHOSPHORUS 2.2 mg/dL (2.5-4.9); POTASSIUM 3.5 mmol/L (3.5-5.1)
--- NOTE | 2019-08-21 05:00 | NUR ---
CHARGE PREPARATION TECHNICIAN HD NURSE AT BEDSIDE.
[2019-08-21] MEDS: LACTULOSE 10 G/15 ML UDC (PYXIS) PO SCH ×4 (09:50→21:11)
[2019-08-21] MEDS: ESOMEPRAZOLE MAGNESIUM 40 MG SUSPDR.PKT GT SCH (10:10)
[2019-08-21] MEDS: HYDROGEL DRESSING 90 GM TUBE TP SCH (10:11)
[2019-08-21] MEDS: CLOTRIMAZOLE/BETAMETASONE DIPROPIONATE 15 GM TUBE TP SCH ×2 (10:11→16:09)
[2019-08-21] MEDS: NYSTATIN TOP POWDER 15 GM BOTTLE TP SCH ×2 (10:11→16:09)
[2019-08-21] MEDS: MODAFINIL 100 MG TABLET PO SCH (10:13)
[2019-08-21] MEDS ORDERED: NEUTRA PHOS 1 POWD.PACKET GT ONE (11:00)
--- NOTE | 2019-08-21 11:47 | NUR ---
RN NOTE 0715: Received patient lethargic. Able to open eyes when asked but for few seconds only. With ETT to CPAP, tolerated, no respiratory distress at this time. Noted with minimal thick rodríguez secretions when suctioned. HD ongoing, VSS at this time. Aflutter 90's on the monitor. With BRIAN PICC intact. CVP reads 14. RCW Permacath intact, on use. Rankin cath intact, noted with minimal amount of kamryn colored urine drained to BSD. MACHINE OPERATOR TRANSPLANTER restraints of for safety, still noted with arms movements at times. On Barimaxx for skin management. 0930: S/E by Dr. Ruvalcaba, patient still lethargic, with new order of Modafinil, carried out. 1000: Done with HD, tolerated, HD nurse reported 4L out. 1030: S/E by ID, no new order at this time, remained afebrile. 1100: S/E by by Dr. Infante, still lethargic.
[2019-08-21 12:29] LABS: ABG BASE EXCESS 3.7 mmol/L; ABG OXYGEN SATURATION 97.6 % (92.0-98.5); ABG PCO2 45.6 mmHg (35.0-45.0); ABG PH 7.418 (7.350-7.450); ABG PO2 107.2 mmHg (75.0-100.0); AaDO2 125.6 mmHg; COHb 0.7 % (0.5-1.5); MetHb 0.5 % (0.0-1.5); O2Hb 96.4 % (94.0-97.0); PEEP,BG 5 cm H2O; SITE, ABG Right Radial; VENT MODE, BG CPAP PS15 40% +5
--- NOTE | 2019-08-21 13:30 | NUR ---
RN NOTE ABG resulted, Dr. Infante aware, verbalized to continue same settings and hold off extubation until she wakes up and not lethargic.
--- NOTE | 2019-08-21 17:08 | NUR ---
RT Pt received intubated via 7.5 ETT @ 20 cm @ lip line. Pt stable through out shift w no respiratory distress. Abg done. No changes on settings per Dr. Infante. Hme changed. Will pass report to production supervisor off shift RT. Addendum: 08/21/19 at 1741 by TARSHA HALL RT Amended: Links added.
[2019-08-21] MEDS: CEFEPIME 2 GM in IV D5W 100 ML IV SCH (17:10)
--- NOTE | 2019-08-21 18:45 | NUR ---
RN NOTE No significant changes noted at this time. ETT to CPAP, tolerated, no respiratory distress noted, but still lethargic. OGT intact, feeding tolerated well. BRIAN PICC intact. Raknin cath intact, noted with 200mL dark kamryn colored urine. Rectal tube intact, noted with 500mL brown loose stool.
--- NOTE | 2019-08-21 19:00 | NUR ---
Received patient orally intubated to the ventilator on CPAP mode, breathing regular,non labored,saturating 99 % .Lethargic ,but arousable and easily falls back to sleep,opens eyes to command,moves both hands and feet but weak.Heart rhythm in afib/a flutter in the 90's,BP stable.CVP via BRIAN PICC reading 11-14 ,with good CVP waveform. Feeding via OGT ,tolerating well,Aspiration Precaution implemented.
--- NOTE | 2019-08-21 19:30 | NUR ---
PT. RECEIVED ORALLY INTUBATED WITH 7.5 ETT SECURED @ 20 CM LIP LINE ON VENT WITH NOTED SETTINGS. PT IS LETHARGIC. NO RESP DISTRESS NOTED AT THIS TIME. SUCTION SMALL AMOUNT OF PISANO THICK SECRETIONS. VENT ALARMS ARE SET AND AUDIBLE. AMBU BAG AT BEDSIDE. WILL CONTINUE TO MONITOR THE PT FOR ANY CHANGES.
--- NOTE | 2019-08-21 22:00 | NUR ---
Awakens on and off, gets slightly restless at times,coughing and gagging , with a lot of mucus secretions,bucking the ventilator.Heart rate goes up to 105-110 when awakens and getting restless.
[2019-08-22] VITALS (37 sets, daily range): BP systolic 43–143; BP diastolic 20–78
--- NOTE | 2019-08-22 | NUR ---
Remains stable,seems more responsive,getting agitated more often,coughing and grimacing.
--- NOTE | 2019-08-22 03:00 | NUR ---
AM care done, patient awake,coughing and gagging, tolerated turning /moving and flat in bed.No shortness of breath,saturating well.
[2019-08-22] MEDS: NEPRO 1,000 ML BOTTLE GT PRN (03:39)
[2019-08-22 04:41] LABS: BASOPHILS % (AUTO) 0.5 % (0.0-2.0); EOSINOPHILS % (AUTO) 5.7 % (0.0-6.0); HEMATOCRIT 29 % (33-45); HEMOGLOBIN 9.5 g/dL (11.5-14.8); LYMPHOCYTES # (AUTO) 0.6 /CMM (0.8-4.8); LYMPHOCYTES % (AUTO) 6.8 % (20.0-44.0); MEAN CORPUSCULAR HGB CONC 33 g/dl (31.0-36.0); MEAN CORPUSCULAR VOLUME 97 fL (82-100); MONOCYTES # (AUTO) 0.9 /CMM (0.1-1.30); MONOCYTES % (AUTO) 9.9 % (2.0-12.0); NEUTROPHILS # (AUTO) 6.6 /CMM (1.8-8.9); NEUTROPHILS % (AUTO) 77.1 % (43.0-81.0); PLATELET COUNT (AUTO) 100 /CMM (150-450); RED BLOOD CELL COUNT(AUTO) 2.95 MIL/uL (4.0-5.2); WHITE BLOOD COUNT (AUTO) 8.6 K/uL (4.3-11.0)
[2019-08-22 04:52] LABS: CALCIUM, SERUM 8.9 mg/dL (8.5-10.1); CREATININE 1.3 mg/dL (0.6-1.3); MAGNESIUM 2.4 mg/dL (1.8-2.4); POTASSIUM 3.5 mmol/L (3.5-5.1)
[2019-08-22] MEDS: CEFEPIME 2 GM in IV D5W 100 ML IV SCH (05:41)
--- NOTE | 2019-08-22 06:00 | NUR ---
Status unchanged,remains and tolerating CPAP mode,no S/S of any respiratory distress.Lethargic but awakens easily and more frequently,still on Afib/A flutter but rate controlled,.
[2019-08-22] MEDS: BLOOD SUGAR DIAGNOSTIC 1 EACH STRIP IN SCH ×3 (06:19→18:09)
--- NOTE | 2019-08-22 07:00 | NUR ---
Report given to Zohaib RESTREPO,patient remains stable, lethargic but easily awakens,still on CPAP mode,tolerating well.
--- NOTE | 2019-08-22 08:00 | NUR ---
RN INITIAL NOTE RECEIVED PATIENT IN BED, ON VENT CPAP MODE SATING WELL AT 99%. AROUSABLE TO TOUCH AND NAME. AFIB ON MONITOR. VSS. HAS A DE LA FUENTE WITH CLEAR AND YELLOW URINE. RECTAL TUBE WITH BROWN AND SOFT STOOL NOTED. ON OG TUBE, WITH NEPRO RUNNING AT 45 ML/HR. HAS PICC LINE ON RIGHT UA. RIGHT FEMORAL HD CATH. INTACT PATENT. CVP AT 10. HD SCHEDULED TODAY. NO SIGNS OF ANY PAIN NOR DISTRESS AT THIS TIME. BED LOCKED AND IN LOW POSITION. WILL CONTINUE TO MONITOR PATIENT CLOSELY
[2019-08-22] MEDS: MODAFINIL 100 MG TABLET PO SCH (08:37)
[2019-08-22] MEDS: LACTULOSE 10 G/15 ML UDC (PYXIS) PO SCH ×4 (08:37→21:43)
[2019-08-22] MEDS: ESOMEPRAZOLE MAGNESIUM 40 MG SUSPDR.PKT GT SCH (08:37)
[2019-08-22] MEDS: HYDROGEL DRESSING 90 GM TUBE TP SCH (08:43)
[2019-08-22] MEDS: CLOTRIMAZOLE/BETAMETASONE DIPROPIONATE 15 GM TUBE TP SCH ×2 (08:44→17:19)
[2019-08-22] MEDS: NYSTATIN TOP POWDER 15 GM BOTTLE TP SCH ×2 (08:44→17:19)
[2019-08-22] MEDS: ALBUMIN 25% 25 GM in PREMIX 1 EA IV PRN (08:51)
[2019-08-22 10:28] LABS: ABG BASE EXCESS 3.3 mmol/L; ABG OXYGEN SATURATION 98.3 % (92.0-98.5); ABG PCO2 41.8 mmHg (35.0-45.0); AaDO2 103.1 mmHg; COHb 0.6 % (0.5-1.5); MetHb 0.7 % (0.0-1.5); PEEP,BG 5 cm H2O; SITE, ABG Right Radial; VENT MODE, BG CPAP PS15; VT, ABG 550 mL
--- NOTE | 2019-08-22 18:00 | NUR ---
RT END OF THE SHIFT REPORT, PT. 59 Y OLD FEMALE RECEIVED ORALLY INTUBATED 7.5 ETT@20CM ON VENT WITH NOTED CPAP SETTINGS. EQUAL CHEST RISE NOTED B/S BILATERALLY RALES SUX'D FOR MOD. AMT OF WHITE THICK SECRETIONS, NO DISTRESS NOTED T/O DAY. 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 ABG DONE NO CHANGES T/O DAY. VENT PLUGGED INTO RED OUT LET. AMBU BAG AT BEDSIDE. WILL CONTINUE TO MONITOR. REPORT WILL PASS TO PM SHIFT. Addendum: 08/22/19 at 1801 by SHANNEN PRAKASH RT Amended: Links added.
--- NOTE | 2019-08-22 19:17 | NUR ---
RN CLOSING NOTE REPORT GIVEN TO ANDREAS ICU NURSE. PATIENT ON VENT, VSS. NO ACUTE CHANGES. ENDORSED FOR CHATA
--- NOTE | 2019-08-22 19:45 | NUR ---
ICU/CARPET WEAVER RECEIVED REPORT FROM DAY SHIFT NURSE. SEE FLOWSHEET FOR ASSESSMENT. ALSO THERE ARE MANY SKIN ISSUES THAT PT HAS WHICH ARE ADDRESSED ON FLOWSHEET ALONG WITH THE INTERVENTION TO EACH. PT CURRENTLY HAS OG/TUBE FEEDING, MONITORING THE RESIDUALS CLOSELY. PT WAS THEN TURNED AND REPOSITIONED FOR COMFORT AND CARE. PT IS ON A BARIATRIC BIG BOY BED.NO ACUTE DISTRESS SEEN
--- NOTE | 2019-08-22 22:10 | NUR ---
ICU/SENIOR COMMUNICATIONS SPECIALIST PT WAS GIVEN PM CARE, ALONG WITH ORAL CARE. PT TOLERATED THIS WELL. PT REMAINS ON CURRENT CPAP VENT SETTINGS WITH SATURATION AT 98-100%. PT WAS TUNED AND REPOSITIONED FOR COMFORT AND CARE. WILL CONTINUE TO MONITOR THIS PT. DRESSINGS APPEARED TO CLEAN, WILL CHANGE DRESSING AT AM BATH. NO ACUTE DISTRESS SEEN.
--- NOTE | 2019-08-22 23:20 | NUR ---
ICU/STRATEGIC PLANNING CONSULTANT PT'S MIDNIGHT BLOOD SUGAR WAS DONE, IT WAS 101. THERE IS NO COVERAGE FOR THIS. WILL CONTINUE TO MONITOR THE BLOOD SUGAR ORDERED MD AND HOSPITAL PROTOCOL. PT WAS TURNED AND REPOSITIONED FOR COMFORT AND CARE.
[2019-08-23] VITALS (31 sets, daily range): BP systolic 101–136; BP diastolic 41–63
[2019-08-23] MEDS: BLOOD SUGAR DIAGNOSTIC 1 EACH STRIP IN SCH ×4 (00:02→20:55)
--- NOTE | 2019-08-23 02:10 | NUR ---
ICU/CARCASS SPLITTER PT WAS GIVEN AM CARE, ALONG WITH ORAL CARE. PT TOLERATED THIS WELL. PT REMAINS ON CURRENT CPAP VENT SETTINGS WITH SATURATION AT 98-100%. PT WAS TUNED AND REPOSITIONED FOR COMFORT AND CARE. WILL CONTINUE TO MONITOR THIS PT. DRESSINGS CHANGE WAS DONE AT THIS TIME DURING AM BATH. NO ACUTE DISTRESS SEEN.
--- NOTE | 2019-08-23 04:10 | NUR ---
ICU/TOP LIFT SCOURER AM LABS WERE DRAWN, ALONG WITH THE AM CHEST XRAY. AWAIT FOR ANY CRITICAL LAB VALUES.
[2019-08-23 04:36] LABS: BASOPHILS # (AUTO) 0.1 /CMM (0.0-0.2); BASOPHILS % (AUTO) 0.6 % (0.0-2.0); EOSINOPHILS % (AUTO) 4.4 % (0.0-6.0); HEMATOCRIT 29 % (33-45); HEMOGLOBIN 9.7 g/dL (11.5-14.8); LYMPHOCYTES # (AUTO) 0.9 /CMM (0.8-4.8); LYMPHOCYTES % (AUTO) 10.1 % (20.0-44.0); MEAN CORPUSCULAR HGB CONC 33 g/dl (31.0-36.0); MEAN CORPUSCULAR VOLUME 97 fL (82-100); MONOCYTES # (AUTO) 0.8 /CMM (0.1-1.30); MONOCYTES % (AUTO) 9.3 % (2.0-12.0); NEUTROPHILS # (AUTO) 6.8 /CMM (1.8-8.9); NEUTROPHILS % (AUTO) 75.6 % (43.0-81.0); PLATELET COUNT (AUTO) 104 /CMM (150-450); RED BLOOD CELL COUNT(AUTO) 3.01 MIL/uL (4.0-5.2)
[2019-08-23 05:00] LABS: CALCIUM, SERUM 9.3 mg/dL (8.5-10.1); CREATININE 1.3 mg/dL (0.6-1.3); MAGNESIUM 2.8 mg/dL (1.8-2.4); PHOSPHORUS 3.3 mg/dL (2.5-4.9); POTASSIUM 3.4 mmol/L (3.5-5.1)
--- NOTE | 2019-08-23 06:20 | NUR ---
ICU/BAKERY SUPERVISOR PT'S MORNING BLOOD SUGAR WAS DONE, IT WAS 91. THERE IS NO COVERAGE FOR THIS. WILL CONTINUE TO MONITOR THE BLOOD SUGAR ORDERED MD AND HOSPITAL PROTOCOL. PT WAS TURNED AND REPOSITIONED FOR COMFORT AND CARE.
[2019-08-23] MEDS ORDERED: POTASSIUM CHLORIDE 20 MEQ POWDER PACKET NG SCH (06:30)
[2019-08-23] MEDS: ESOMEPRAZOLE MAGNESIUM 40 MG SUSPDR.PKT GT SCH (09:04)
[2019-08-23] MEDS: LACTULOSE 10 G/15 ML UDC (PYXIS) PO SCH ×4 (09:04→20:56)
[2019-08-23] MEDS: MODAFINIL 100 MG TABLET PO SCH (09:04)
[2019-08-23] MEDS: NYSTATIN TOP POWDER 15 GM BOTTLE TP SCH ×2 (09:05→17:10)
[2019-08-23] MEDS: CLOTRIMAZOLE/BETAMETASONE DIPROPIONATE 15 GM TUBE TP SCH ×2 (09:05→17:10)
[2019-08-23] MEDS: HYDROGEL DRESSING 90 GM TUBE TP SCH (09:05)
--- NOTE | 2019-08-23 11:45 | NUR ---
RN NOTE 0715: Received patient, lethargic, able to open eyes but does not follow much commands. With ETT to CPAP, tolerated settings at this time. With OGT intact, feeding tolerated well. Kept HOB elevated. With BRIAN PICC intact. On CVP reading 12. On Barimaxx, turned frequently. 0900: HD nurse at bedside, HD ongoing, tolerated at this time. 0915: S/E by Dr. Infante, patient still lethargic. 1030: S/E by ID, no new order at this time. 1100: HD nurse reported 2L of output from HD. VS remained stable. 1145: No any significant changes noted. Remained on CPAP. Kept clean, warm and dry.
--- NOTE | 2019-08-23 17:48 | NUR ---
RN NOTE No any significant changes noted, tolerated CPAP. Kept clean, warm and dry. Endorsed to uLisa RESTREPO for CHATA.
--- NOTE | 2019-08-23 18:15 | NUR ---
RT END OF THE SHIFT REPORT, PT. 59 Y OLD FEMALE RECEIVED 0700 AM ORALLY INTUBATED 7.5 ETT @ 20CM ON VENT WITH NOTED CPAP SETTINGS. EQUAL CHEST RISE NOTED B/S BILATERALLY RALES SUX'D FOR MOD. AMT OF WHITE THICK SECRETIONS, NO DISTRESS NOTED T/O DAY. HME CHANGED CRM ADMINISTRATOR DONE. ABG DONE NO CHANGES T/O DAY. VENT PLUGGED INTO RED OUT LET. AMBU BAG AT BEDSIDE. WILL CONTINUE TO MONITOR. REPORT WILL PASS TO PM SHIFT. Addendum: 08/23/19 at 1816 by SHANNEN PRAKASH RT Amended: Links added.
--- NOTE | 2019-08-23 19:00 | NUR ---
PT. RECEIVED ORALLY INTUBATED WITH 7.5 ETT SECURED @ 20 CM LIP LINE ON VENT WITH NOTED SETTINGS. NO RESP DISTRESS NOTED AT THIS TIME. EQUAL BILATERAL CHEST RISE NOTED. SUCTION SMALL AMOUNT OF PISANO THICK SECRETIONS. VENT ALARMS ARE SET AND AUDIBLE. AMBU BAG AT BEDSIDE. WILL CONTINUE TO MONITOR THE PT FOR ANY CHANGES. Addendum: 08/23/19 at 2047 by ÁNGEL VALDEZ RT EQUAL CHEST RISE NOTED
--- NOTE | 2019-08-23 19:33 | NUR ---
UNDERGROUND UTILITY LOCATOR RCD PT W/DX RESP FAIL; AFIB ON MONITOR. INTUBATED 7.5 @ 20 ON CPAP; WEANING TRIAL IN AM. OG TUBE WITH NEPRO @ 45 ML/HR; NO RESIDUAL AT THIS TIME.
--- NOTE | 2019-08-23 21:31 | NUR ---
MARKET BASKET MAKER DAUGHTER AT BEDSIDE; UPDATED ON PLAN OF CARE; PLANS ON BEING HERE IN THE MORNING FOR PTS WEANING TRIAL.
[2019-08-24] VITALS (24 sets, daily range): BP systolic 98–157; BP diastolic 39–99
[2019-08-24] MEDS: NEPRO 1,000 ML BOTTLE GT PRN (03:39)
[2019-08-24 04:40] LABS: BASOPHILS # (AUTO) 0.1 /CMM (0.0-0.2); BASOPHILS % (AUTO) 0.7 % (0.0-2.0); EOSINOPHILS % (AUTO) 6.2 % (0.0-6.0); HEMATOCRIT 31 % (33-45); LYMPHOCYTES # (AUTO) 0.8 /CMM (0.8-4.8); LYMPHOCYTES % (AUTO) 11.6 % (20.0-44.0); MEAN CORPUSCULAR HGB CONC 32 g/dl (31.0-36.0); MEAN CORPUSCULAR VOLUME 97 fL (82-100); MONOCYTES # (AUTO) 0.7 /CMM (0.1-1.30); MONOCYTES % (AUTO) 9.6 % (2.0-12.0); NEUTROPHILS # (AUTO) 5.1 /CMM (1.8-8.9); NEUTROPHILS % (AUTO) 71.9 % (43.0-81.0); PLATELET COUNT (AUTO) 109 /CMM (150-450); RED BLOOD CELL COUNT(AUTO) 3.18 MIL/uL (4.0-5.2); WHITE BLOOD COUNT (AUTO) 7.1 K/uL (4.3-11.0)
[2019-08-24 05:05] LABS: CALCIUM, SERUM 9.3 mg/dL (8.5-10.1); CREATININE 1.2 mg/dL (0.6-1.3); MAGNESIUM 2.5 mg/dL (1.8-2.4); PHOSPHORUS 2.9 mg/dL (2.5-4.9); POTASSIUM 3.6 mmol/L (3.5-5.1)
--- NOTE | 2019-08-24 06:42 | NUR ---
PLACED PT ON CA 40% 10 L. RN BARRETT NOTIFIED . DEFLATED CUFF. SPO2 99% NO RESPIRATORY DISTRESS OR SOB AT THIS TIME. WILL CONTINUE TO MONITOR THE PT FOR ANY CHANGES AND WILL ENDORSE THE PT TO MORNING SHIFT.
--- NOTE | 2019-08-24 06:43 | NUR ---
FISHER PLACED ON COOL AEROSOL BY RT. CONTINUE TO MONITOR.
--- NOTE | 2019-08-24 07:30 | NUR ---
RN NOTE: RECEIVED PATIENT IN BED, LETHARGIC AND CAN OPEN EYES SPONTANEOUSLY WITH TACTILE STIMULI. ON T-PIECE FIO2 40% 10L/MIN SATURATING 98%. NO FACIAL GRIMACING. ON BARIMAXX BED. HOB ELEVATED. OGT FEEDING OF NEPHRO @ 45ML/HR INFUSING WELL WITH NO RESIDUAL NOTED. AFEBRILE. SKIN WARM TO TOUCH. DE LA FUENTE CATHETER IN PLACED WITH CLEAR ROBERT URINE DRAINING TO GRAVITY. FLEXISEAL WAS IN PLACED WITH LIQUID STOOL. (R) UA PICC LINE NOTED IN PLACED WITH 3 PORTS WITH CVP MONITORING AND A NS TKO INFUSING. CALL LIGHT WITHIN REACH. NEEDS ANTICIPATED. CLOSELY MONITORING FOR THE WEANING PROCESS. NOTED WITH HYPERSECRETION. ORAL CARE RENDERED.
--- NOTE | 2019-08-24 08:50 | NUR ---
RN NOTE: DR. GUZMAN PRESENT IN THE UNIT AND ASSESSED THE PATIENT. DR. GUZMAN INFORMED THE SHANNEN RT TO PUT THE PATIENT BACK IN CPAP MODE AND HE WILL CONTACT DR. WONG (THORACIC SURGEON) TO DO A TRACHEOSTOMY FOR THE PATIENT.
[2019-08-24] MEDS: MODAFINIL 100 MG TABLET PO SCH (09:57)
[2019-08-24] MEDS: HYDROGEL DRESSING 90 GM TUBE TP SCH (09:57)
[2019-08-24] MEDS: NYSTATIN TOP POWDER 15 GM BOTTLE TP SCH ×2 (09:57→17:28)
[2019-08-24] MEDS: CLOTRIMAZOLE/BETAMETASONE DIPROPIONATE 15 GM TUBE TP SCH ×2 (09:57→17:28)
[2019-08-24] MEDS: LACTULOSE 10 G/15 ML UDC (PYXIS) PO SCH ×4 (09:57→20:59)
[2019-08-24] MEDS: BLOOD SUGAR DIAGNOSTIC 1 EACH STRIP IN SCH ×2 (10:00→21:11)
--- NOTE | 2019-08-24 10:00 | NUR ---
RN NOTE: SPOKE WITH PATIENT'S DAUGHTER AGUSTÍN AND INFORMED THAT PATIENT DID NOT TOLERATE THE WEANING FROM THE VENTILATOR.
[2019-08-24] MEDS: ESOMEPRAZOLE MAGNESIUM 40 MG SUSPDR.PKT GT SCH (11:28)
[2019-08-24] MEDS: IV NS 0.9% 250 ML IV PRN (12:13)
--- NOTE | 2019-08-24 14:20 | NUR ---
RN NOTE: KIKI LACEY NP WAS MAKING HER ROUNDS AND ACCORDING TO HER DR. ESCOBAR WILL BE ORDERING HEMODIALYSIS FOR TOMORROW MORNING. NO HD SCHEDULE FOR TODAY. DR. HERRING MADE AWARE.
--- NOTE | 2019-08-24 18:11 | NUR ---
RT END OF THE SHIFT REPORT, PT. 59 Y OLD FEMALE RECEIVED @ 0700 AM ON COOL AEROSOL 40% 10L/MIN @ 0850 AM PLACED BACK ON VENT WITH CPAP SETTING PER DR. GUZMAN ORDER AT TH BEDSIDE. PT. REMAIN ORALLY INTUBATED 7.5 ETT @ 20CM. PAULA. CPAP SETTINGS T/O DAY NO DISTRESS NOTED. EQUAL CHEST RISE NOTED B/S BILATERALLY RALES SUX'D FOR MOD. AMT OF WHITE THICK SECRETIONS, HME CHANGED REFORESTATION WORKER DONE. VENT PLUGGED INTO RED OUT LET. AMBU BAG AT BEDSIDE. WILL CONTINUE TO MONITOR. REPORT WILL PASS TO PM SHIFT. Addendum: 08/24/19 at 1815 by SHANNEN PRAKASH RT Amended: Links added.
--- NOTE | 2019-08-24 19:15 | NUR ---
RN NOTE: BEDSIDE REPORT WAS GIVEN TO PM SHIFT NURSE FOR CONTINUITY OF CARE. PATIENT REMAINED ON OGT FEEDING NEPHRO @45ML/HR WITH NO RESIDUAL. FLEXISEAL STILL IN PLACED WITH LIQUID STOOL. (R) UA PICC LINE INTACT AND PATENT. HOB ELEVATED. ON CPAP MODE ON THE MECHANICAL VENTILATOR AND WAS SATURATING 98% ON THE CURRENT VENT MODE. DE LA FUENTE CATHETER IN PLACED WITH CLEAR ROBERT IN COLOR URINE. (R) FEMORAL HD CATHETER IN PLACED AND INTACT WITH CLEAN DRESSING. EMPHASIZED THAT PATIENT WILL BE DIALYZE BY TOMORROW MORNING PER DR. ESCOBAR AND KIKI LACEY, LIFT ELECTRICIAN WAS AWARE.
--- NOTE | 2019-08-24 20:00 | NUR ---
ICU/RN NOTES RECEIVED PT ON VENT VIA ORAL ETT 7.5/20CM AT LIP LINE.ON CPAP 40%,PS OF 15 AND PEEP OF 5.PT OPENS EYES, DOES NOT TRACK,DOES NOT FOLLOW COMMANDS.WIGGLES TOES.TOLERATING TUBE FEEDING OF NEPHRO AT 45ML/HR,NO RESIDUAL OBTAINED.FLEXI SEAL DRAINING BROWNISH LIQUID STOOL.ON MAXXI AIR BED.
--- NOTE | 2019-08-24 20:27 | NUR ---
RECEIVED PT INTUBATED ON VENT. PT IS ON CPAP MODE AND TOLERATING SETTINGS. BS COARSE/RALES BILAT. SXD FOR MOD AMT OF THICK PISANO SECRETIONS. VENT ALARMS SET AND AUDIBLE. AMBU BAG AT BEDSIDE. АЛЕКСАНДР PLUGGED INTO RED OUTLET. WILL CONTINUE TO MONITOR. Addendum: 08/24/19 at 2027 by BUTCH DUVAL RT Amended: Links added.
--- NOTE | 2019-08-24 22:00 | NUR ---
ICU/RN NOTES SUCTIONED VIA ORAL ETT FOR SMALL AMT DREAMY YELLOW TO WHITE SECRETIONS.ORAL CARE DONE AFTER SUCTIONING MOUTH FOR MODERATE WHITE SECRETIONS.
[2019-08-25] VITALS (34 sets, daily range): BP systolic 103–137; BP diastolic 51–87
--- NOTE | 2019-08-25 03:00 | NUR ---
ICU/RN NOTES COMPLETE BED BATH GIVEN,DUODERM TO RT UPPER BACK DC'D AND EXPOSED TO AIR.DUODERM TO BACK FOLD CHANGED.BILATERAL AXILLARY FOLD,ABDOMEN AND GROIN CLEANSE W/ NS,PAT DRY AND NYSTATIN POWDER APPLIED.
[2019-08-25 04:36] LABS: BASOPHILS # (AUTO) 0.1 /CMM (0.0-0.2); BASOPHILS % (AUTO) 0.7 % (0.0-2.0); EOSINOPHILS % (AUTO) 1.9 % (0.0-6.0); HEMATOCRIT 31 % (33-45); HEMOGLOBIN 10.1 g/dL (11.5-14.8); LYMPHOCYTES % (AUTO) 11.7 % (20.0-44.0); MEAN CORPUSCULAR HGB CONC 33 g/dl (31.0-36.0); MEAN CORPUSCULAR VOLUME 99 fL (82-100); MONOCYTES # (AUTO) 0.8 /CMM (0.1-1.30); MONOCYTES % (AUTO) 9.1 % (2.0-12.0); NEUTROPHILS # (AUTO) 6.5 /CMM (1.8-8.9); NEUTROPHILS % (AUTO) 76.6 % (43.0-81.0); PLATELET COUNT (AUTO) 113 /CMM (150-450); RED BLOOD CELL COUNT(AUTO) 3.14 MIL/uL (4.0-5.2); WHITE BLOOD COUNT (AUTO) 8.4 K/uL (4.3-11.0)
[2019-08-25 04:46] LABS: CALCIUM, SERUM 10.1 mg/dL (8.5-10.1); CREATININE 1.3 mg/dL (0.6-1.3); MAGNESIUM 2.6 mg/dL (1.8-2.4); PHOSPHORUS 3.2 mg/dL (2.5-4.9); POTASSIUM 3.5 mmol/L (3.5-5.1)
--- NOTE | 2019-08-25 05:00 | NUR ---
ICU/RN NOTES MONITOR SHOWS [id number]-FLUTTER CONTROLLED VENT RESPONSE.RT CHANGED ET-TUBE BAGLEY,FOUL SMELLING,BACK OF NECK SLIGHTLY REDDENED.
[2019-08-25] MEDS: NEPRO 1,000 ML BOTTLE GT PRN (06:44)
--- NOTE | 2019-08-25 07:00 | NUR ---
HEDIS SPECIALIST NOTES RECEIVED BEDSIDE REPORT FROM NOC. PATIENT A/O X0 OPENS EYES SPONTANEOUSLY DOES NOT FOLLOW COMMANDS. NO SIGNS OR SYMPTOMS OF RESPIRATORY DISTRESS INTUBATED 7.5/20@ LIP TOLERATING SETTINGS ORDERED SATURATING 92% . SINUS ON MONITOR WITH AFIB CONTROLLED AND A FLUTTER. DE LA FUENTE CATH DRAINING MINIMAL YELLOW CLEAR URINE AND FLEXI SEAL DRAINING LIQUID STOOL. RIGHT GROIN HD CATH DRESSING CLEAN AND INTACT. BRIAN PICC TKO. NEPRO RUNNING @ 45 ML/HR VIA OGT TOLERATING WELL. BILATERAL WRIST RESTRAINTS CHECKED FOR CIRCULATION SAFETY AND ASPIRATION PRECAUTIONS IN PLACE BED IN LOW LOCKED POSITION WILL CONT TO MONITOR ACCORDINGLY
--- NOTE | 2019-08-25 07:24 | NUR ---
ICU/RN NOTES REPORT AMD CARE OF PT.GIVEN TO KINGSLEY Hernández
[2019-08-25] MEDS: MODAFINIL 100 MG TABLET PO SCH (08:44)
[2019-08-25] MEDS: LACTULOSE 10 G/15 ML UDC (PYXIS) PO SCH ×4 (08:44→20:26)
[2019-08-25] MEDS: CLOTRIMAZOLE/BETAMETASONE DIPROPIONATE 15 GM TUBE TP SCH ×2 (08:47→17:19)
[2019-08-25] MEDS: NYSTATIN TOP POWDER 15 GM BOTTLE TP SCH ×2 (08:47→17:19)
[2019-08-25] MEDS: PROSOURCE / PROSTAT (PYXIS) 30 ML UDC GT SCH (08:47)
[2019-08-25] MEDS: HYDROGEL DRESSING 90 GM TUBE TP SCH (08:47)
[2019-08-25] MEDS: BLOOD SUGAR DIAGNOSTIC 1 EACH STRIP IN SCH ×2 (08:50→20:26)
[2019-08-25] MEDS: INSULIN REGULAR, HUMAN 100 UNIT/ML 3 ML VIAL SQ PRN (08:51)
--- NOTE | 2019-08-25 09:35 | NUR ---
CALLED RX FOR NEXIUM 0900 DOSE
--- NOTE | 2019-08-25 11:33 | NUR ---
SPOKE WITH DAUGHTER AGUSTÍN IN REGARDS TO PATIENT BEING TRACHED. SHE WOULD LIKE MORE INFORMATION AND IS UNSURE IF THIS IS THE ROUTE SHE WANTS TO GO WITH PATIENT FUTURE GOALS. WILL HAVE DR PETERS OR DR GUZMAN CALL HER
--- NOTE | 2019-08-25 11:45 | NUR ---
LEFT MESSAGE WITH DR GUZMAN TO CALL DAUGHTER
--- NOTE | 2019-08-25 12:04 | NUR ---
SPOKE WITH DR OSMAN OFFICE PATIENT IS ON THEIR LIST OF CONSULTS NO SET DATE OR TIME OF SURGERY
[2019-08-25] MEDS: ESOMEPRAZOLE MAGNESIUM 40 MG SUSPDR.PKT GT SCH (14:28)
--- NOTE | 2019-08-25 15:35 | NUR ---
SPOKE WITH DAUGHTER AGUSTÍN TO GET CONSENT FOR TRACHEOSTOMY 08/26 @ 9430 SCHEDULED. DAUGHTER STATED THAT SHE DOES NOT WANT IT DONE BUT IF THAT IS WHAT THE POLST STATES SHE WILL SIGN THE CONSENT. VERIFYING POLST WITH [facility] AND WILL CONTACT AGUSTÍN WHEN VERIFIED
--- NOTE | 2019-08-25 16:19 | NUR ---
DR OSMAN OFFICE CALLED FOR CONFIRMATION OF SURGERY IN MORNING. PATIENT TO NPO AFTER MIDNIGHT AN HOLD BLOOD THINNERS
--- NOTE | 2019-08-25 16:25 | NUR ---
SPOKE WITH MEDICAL RECORDS @ [employer] [facility] TO OBTAIN A POLST
--- NOTE | 2019-08-25 16:43 | NUR ---
COPY OF POLST OBTAINED CALLED DAUGHTER AGUSTÍN FOR PHONE CONSENT FOR TRACHEOSTOMY PLACEMENT
--- NOTE | 2019-08-25 18:32 | NUR ---
RT END OF THE SHIFT REPORT, PT. 59 Y OLD FEMALE RECEIVED @ 0700 AM ON VENT WITH CPAP SETTING PT. REMAIN ORALLY INTUBATED 7.5 ETT @ 20CM. PAULA. CPAP SETTINGS T/O DAY NO DISTRESS NOTED. EQUAL CHEST RISE NOTED B/S BILATERALLY RALES SUX'D FOR MOD. AMT OF WHITE THICK SECRETIONS, HME CHANGED RN SURGERY ICU DONE. VENT PLUGGED INTO RED OUT LET. AMBU BAG AT BEDSIDE. WILL CONTINUE TO MONITOR. REPORT WILL PASS TO PM SHIFT. Addendum: 08/25/19 at 1833 by SHANNEN PRAKASH RT Amended: Links added.
--- NOTE | 2019-08-25 19:15 | NUR ---
REPORT ENDORSED TO NOC
[2019-08-25] MEDS: IV NS 0.9% 250 ML IV PRN (20:26)
[2019-08-26] VITALS (38 sets, daily range): BP systolic 71–154; BP diastolic 24–107
[2019-08-26 04:59] LABS: BASOPHILS # (AUTO) 0.1 /CMM (0.0-0.2); BASOPHILS % (AUTO) 1.3 % (0.0-2.0); EOSINOPHILS % (AUTO) 2.9 % (0.0-6.0); HEMATOCRIT 32 % (33-45); HEMOGLOBIN 10.5 g/dL (11.5-14.8); LYMPHOCYTES # (AUTO) 1.3 /CMM (0.8-4.8); LYMPHOCYTES % (AUTO) 13.6 % (20.0-44.0); MEAN CORPUSCULAR HGB CONC 33 g/dl (31.0-36.0); MEAN CORPUSCULAR VOLUME 99 fL (82-100); MONOCYTES # (AUTO) 0.7 /CMM (0.1-1.30); MONOCYTES % (AUTO) 7.8 % (2.0-12.0); NEUTROPHILS % (AUTO) 74.4 % (43.0-81.0); PLATELET COUNT (AUTO) 90 /CMM (150-450); RED BLOOD CELL COUNT(AUTO) 3.22 MIL/uL (4.0-5.2); WHITE BLOOD COUNT (AUTO) 9.5 K/uL (4.3-11.0)
[2019-08-26 05:08] LABS: CALCIUM, SERUM 9.6 mg/dL (8.5-10.1); CREATININE 1.1 mg/dL (0.6-1.3); MAGNESIUM 2.4 mg/dL (1.8-2.4); PHOSPHORUS 2.9 mg/dL (2.5-4.9); POTASSIUM 3.4 mmol/L (3.5-5.1)
--- NOTE | 2019-08-26 07:28 | NUR ---
DIALS SUPERVISOR NOTES RECEIVED BEDSIDE REPORT FROM NOC. PATIENT A/O X0 OPENS EYES SPONTANEOUSLY DOES NOT FOLLOW COMMANDS. NO SIGNS OR SYMPTOMS OF RESPIRATORY DISTRESS INTUBATED 7.5/20@ LIP TOLERATING SETTINGS ORDERED SATURATING 92% . SINUS ON MONITOR WITH AFIB CONTROLLED AND A FLUTTER. DE LA FUENTE CATH DRAINING MINIMAL YELLOW CLEAR URINE AND FLEXI SEAL DRAINING LIQUID STOOL. RIGHT GROIN HD CATH DRESSING CLEAN AND INTACT. BRIAN PICC TKO.NPO FOR SURGERY TRACHEOSTOMY PLACEMENT ALL CONSENTS AND PRE-OP . BILATERAL WRIST RESTRAINTS CHECKED FOR CIRCULATION SAFETY AND ASPIRATION PRECAUTIONS IN PLACE BED IN LOW LOCKED POSITION WILL CONT TO MONITOR ACCORDINGLY
--- NOTE | 2019-08-26 07:40 | NUR ---
PATIENT LEFT FOR SURGERY VIA BED WITH ACLS PROTOCOL AND ACCOMPANIED BY RESPIRATORY
[2019-08-26] MEDS ORDERED: LIDOCAINE HCL/PF 1% 30 ML SDV ONE (07:44)
[2019-08-26] MEDS ORDERED: ANESTHESIA TRAY IN PYXIS 1 EA TRAY MC ONE (07:44)
--- NOTE | 2019-08-26 08:42 | NUR ---
PATIENT RETURNED FROM SURGERY WITH TRACH SHILEY [address] MINIMAL BLEEDING NOTED.AND OGT PLACED IN SX T 98.1 B/P 154/36 HR 99 RR 21 O2 SAT 98% CURRENT VENT SETTINGS AC 16 VT 550 O2 40% PEEP 0. PATIENT COUGHING WILL REQUEST ORDER FOR PAIN MEDS FROM DR PETERS. OGT REMOVED AND NGT #16 PLACED IN RIGHT NARES CXR ORDERED FOR PLACEMENT. POST OP ORDERED TO RESUME PRE-OP ORDERERS.
[2019-08-26] MEDS: BLOOD SUGAR DIAGNOSTIC 1 EACH STRIP IN SCH ×2 (09:00→20:52)
--- NOTE | 2019-08-26 09:00 | NUR ---
RT PT CAME BACK FROM OR NEWLY TRACHED WITH AVERY 8XLT PLACED BACK ON PREVIOUS SETTING AC 16 550 40% +0 WILL CONTINUE TO MONITOR Addendum: 08/26/19 at 0911 by RODRIGO MARTINEZ RT Amended: Links added.
[2019-08-26] MEDS ORDERED: POTASSIUM CHLORIDE 20 MEQ POWDER PACKET GT SCH (11:00)
[2019-08-26] MEDS: ESOMEPRAZOLE MAGNESIUM 40 MG SUSPDR.PKT GT SCH (11:24)
[2019-08-26] MEDS: PROSOURCE / PROSTAT (PYXIS) 30 ML UDC GT SCH (11:25)
[2019-08-26] MEDS: NEPRO 1,000 ML BOTTLE GT PRN (11:26)
[2019-08-26] MEDS: MODAFINIL 100 MG TABLET PO SCH (11:28)
[2019-08-26] MEDS: CLOTRIMAZOLE/BETAMETASONE DIPROPIONATE 15 GM TUBE TP SCH ×2 (11:29→17:49)
[2019-08-26] MEDS: LACTULOSE 10 G/15 ML UDC (PYXIS) PO SCH ×4 (11:29→21:25)
[2019-08-26] MEDS: NYSTATIN TOP POWDER 15 GM BOTTLE TP SCH ×2 (11:29→17:49)
[2019-08-26] MEDS: HYDROGEL DRESSING 90 GM TUBE TP SCH (11:29)
[2019-08-26] MEDS ORDERED: MORPHINE SULFATE INJ 2 MG/ML DISP.SYRIN IV PRN (12:00)
--- NOTE | 2019-08-26 18:33 | NUR ---
ELECTRONIC FUNDS TRANSFER COORDINATOR NOTES PATIENT REMAINED STABLE THROUGHOUT SHIFT. TOLERATING TRACH AND VENT SETTINGS ORDERED. NO SOB OR DISTRESS NOTED SATURATING 98% . MORPHINE 2MG IVP GIVEN 1X FOR FACIAL GRIMACING POST PROCEDURE. BED BATH AND LINENS CHANGED ORAL DONE. DE LA FUENTE CATH DRAINING ORBERT TEA COLORED URINE. FLEXI SEAL DRAINING LIQUID STOOL. REPOSITION VIA BED KEPT CLEAN AND DRY. SAFETY AND ASPIRATION PRECAUTIONS IN PLACE BED IN LOW LOCKED POSITION HOB ELEVATED. ALL NEEDS MET AT THIS TIME WILL ENDORSE TO NOC
--- NOTE | 2019-08-26 19:41 | NUR ---
PT RCVD TRACH SHILEY 8 XLT ON VENT WITH NOTED SETTINGS. PT IS AWAKE , NON VERBAL, RESPONDS TO STIMULI WHEN SUCTIONED . SX DONE PRN. VENT ALARMS ARE SET AND AUDIBLE. AMBU BAG AT BEDSIDE. VENT PLUGGED INTO RED OUTLET. CUFF INFLATED. NO RESPIRATORY DISTRESS NOTED AT THIS TIME . WILL CONTINUE TO MONITOR FOR ANY CHANGES.
--- NOTE | 2019-08-26 20:00 | NUR ---
TOY DEPARTMENT MANAGER - NOTES - PATIENT TOLERATING TRACH SHILEY 8 XLT AND VENT SETTINGS ORDERED. NO SOB OR DISTRESS NOTED SATURATING 98%. BED BATH AND LINENS CHANGED ORAL DONE. DE LA FUENTE CATH DRAINING ROBERT TEA COLORED URINE. FLEXI SEAL DRAINING LIQUID STOOL. REPOSITION VIA BED KEPT CLEAN AND DRY. SAFETY AND ASPIRATION PRECAUTIONS IN PLACE BED IN LOW LOCKED POSITION HOB ELEVATED.
[2019-08-27] VITALS (27 sets, daily range): BP systolic 99–141; BP diastolic 46–104
[2019-08-27 04:16] LABS: CALCIUM, SERUM 9.8 mg/dL (8.5-10.1); CREATININE 1.1 mg/dL (0.6-1.3); POTASSIUM 3.4 mmol/L (3.5-5.1)
--- NOTE | 2019-08-27 07:30 | NUR ---
RN NOTE: RECEIVED PATIENT IN ROOM 252 AND PATIENT WAS NOTED LETHARGIC, CAN SPONTANEOUSLY OPEN HER EYES, NONVERBAL, HAVE A TRACHEOSTOMY SHILEY 8XLT AC 16 TV 550 FIO2 40% PEEP 0, SATURATING 98%. HOB ELEVATED. (R) NARE NGT WAS INFUSING NEPHRO @45ML/HR, NO RESIDUAL WAS NOTED. (R) UA PICC LINE TRIPLE LUMEN WITH 3 PORTS INFUSING WELL. CVP MONITORING THROUGH THE PICC LINE. PATIENT'S ON (B) SOFT WRIST RESTRAINTS FOR SAFETY AND TO PREVENT THE PULLING OF TRACHEOSTOMY. PATIENT WAS RECEIVING HEMODIALYSIS AND A NEW SKIN TEAR WAS NOTED ON THE (L) AND (R) SIDE OF THE (R) FEMORAL CATHETER WAS NOTED. WILL INFORM THE ASSIGNED HOSPITALIST ABOUT IT AND WILL INFORM THE WOUND CARE NURSE TO FOLLOW-UP. DE LA FUENTE CATHETER IN PLACED DRAINING CLOUDY ROBERT URINE WITH FEW SEDIMENTS TO GRAVITY. FLEXISEAL WAS NOTED IN PLACED DUE TO THE ADMINISTRATION OF LACTULOSE AND IT WAS NOTED WITH LIQUID STOOL BROWN IN COLOR. BED ON LOWEST POSITION AND LOCKED AT ALL TIMES. PATIENT ON CLOSE MONITORING.
[2019-08-27] MEDS: BLOOD SUGAR DIAGNOSTIC 1 EACH STRIP IN SCH ×2 (08:24→21:51)
--- NOTE | 2019-08-27 08:49 | NUR ---
RN NOTE: PATIENT'S STILL RECEIVING HEMODIALYSIS AT THIS TIME. (R) FEMORAL HD CATHETER DRESSING WAS CHANGED BY JEFF HD NURSE AND C-LINE DRESSING WAS CHANGED. SKIN SURROUNDING THE HD CATHETER WAS NOTED WITH A SKIN TEAR (L) SIDE MEASURING 0.5 X 1.5 CM RED IN COLOR AND (R) SIDE MEASURING 1.0 X 2.0 CM RED IN COLOR AND BOTH WITH SMALL AMOUNT OF SEROUS FLUID DRAINAGE. OPEN SKIN WAS DRESSED WITH XEROFORM AND THE TRANSPARENT DRESSING. NO BLEEDING ON THE SITE. WOUND CARE CONSULT WAS ORDERED. TOOK PICTURE OF THE SKIN TEAR ON THE (R) FEMORAL AREA. DATED, TIMED, INITIALED AND FILED ON THE PATIENT'S CHART.
[2019-08-27] MEDS: PROSOURCE / PROSTAT (PYXIS) 30 ML UDC GT SCH (09:23)
[2019-08-27] MEDS: MODAFINIL 100 MG TABLET PO SCH (09:23)
[2019-08-27] MEDS: LACTULOSE 10 G/15 ML UDC (PYXIS) PO SCH ×4 (09:24→21:51)
[2019-08-27] MEDS: CLOTRIMAZOLE/BETAMETASONE DIPROPIONATE 15 GM TUBE TP SCH ×2 (09:25→16:09)
[2019-08-27] MEDS: HYDROGEL DRESSING 90 GM TUBE TP SCH (09:25)
[2019-08-27] MEDS: NYSTATIN TOP POWDER 15 GM BOTTLE TP SCH ×2 (09:25→16:09)
--- NOTE | 2019-08-27 09:32 | NUR ---
RN NOTE: DR. GUZMAN GAVE AN ORDER FOR D5W @75ML/HR. ORDER NOTED AND CARRIED OUT. PATIENT HAD HEMODIALYSIS TODAY AND 1L OF FLUID WAS REMOVED.
[2019-08-27] MEDS: IV D5W 1,000 ML IV PRN (09:46)
[2019-08-27] MEDS: PANTOPRAZOLE 40 MG/PACK PACK GT SCH (09:54)
--- NOTE | 2019-08-27 10:09 | NUR ---
RN NOTE: DR. Ezio ESCOBAR PRESENT IN THE UNIT AND ORDERED TO GIVE FREE WATER FLUSH THROUGH THE NGT 200 ML 4X/DAY. ORDER NOTED AND CARRIED OUT. CLARIFIED WITH MD THAT PATIENT HAS AN ORDER FOR D5W @75ML/HR AND PER MD, ADD THE FREE WATER FLUSH.
[2019-08-27] MEDS: NEPRO 1,000 ML BOTTLE GT PRN (12:07)
--- NOTE | 2019-08-27 13:18 | NUR ---
RN NOTE: DR. PETERS WAS INFORMED ABOUT THE PATIENT'S CURRENT CONDITION. PER MD, OK TO DISCONTINUE THE CVP MONITORING. ORDER NOTED AND CARRIED OUT.
[2019-08-27] MEDS: PROSOURCE / PROSTAT (PYXIS) 30 ML UDC PO SCH (16:08)
[2019-08-27] MEDS: VITAMINS A AND D 56.7 GM TUBE TP PRN (16:15)
--- NOTE | 2019-08-27 16:24 | NUR ---
RN NOTE: DR. SNOWDEN CAME BY AND GAVE HIM AN UPDATE REGARDING PATIENT'S CONDITION. MD ORDERED PT EVALUATION FOR THE PATIENT. ORDER NOTED AND CARRIED OUT.
--- NOTE | 2019-08-27 17:22 | NUR ---
RN NOTE: CALLED AND SPOKE WITH AGUSTÍN ROLLE, DAUGHTER AND MADE HER AWARE THAT THE PATIENT WILL BE GOING TO [facility] ROOM 112-1.
--- NOTE | 2019-08-27 17:30 | NUR ---
RN NOTE: CALLED AND SPOKE WITH [facility] VILLAGRAN RN AND HAND-OFF THE REPORT FOR THE PATIENT FOR CONTINUITY OF CARE. WILL BRING THE PATIENT TO [facility] ROOM 112-1 AT 1800. ENDORSED TO LAURO VILLAGRAN THAT THE PATIENT'S DAUGHTER AGUSTÍN WAS INFORMED ABOUT THE PATIENT'S DOWNGRADE TO [facility].
--- NOTE | 2019-08-27 17:45 | NUR ---
RN NOTE: ALEXANDRA MICHAELS, CHRISTIANO FOR GI CAME BY AND GAVE HER THE TELEPHONE NUMBER FOR AGUSTÍN ROLLE, DAUGHTER FOR THE PLAN OF PEG PLACEMENT BY TOMORROW.
[2019-08-27] MEDS: Z GUARD REMEDY 2 OZ OINT TP PRN (17:48)
--- NOTE | 2019-08-27 18:10 | NUR ---
RN NOTE: PATIENT WAS TRANSPORTED TO [facility] ROOM 112-1 VIA ACLS PROTOCOL WITH THE ICU CHARGE NURSE RT KATIE. PATIENT REPORT AND CHART WAS HANDED TO [facility] VILLAGRAN RN FOR CONTINUITY OF CARE.
--- NOTE | 2019-08-27 18:26 | NUR ---
sukhi rn note received patient from icu , awake bunable to follow any command both eyes open , with tele monitor st hr 116 , with Rankin cath to gravity with yellow kamryn color urine , with rectal flxe seal tube with liquid brown color stool noted, on daniel max beed in place with both soft restrain , rt upper arm picc line on ivf as ordered vs taken will cont to monitor closely
--- NOTE | 2019-08-27 20:34 | NUR ---
TD RN DAY SHIFT RN UNAWARE OF WHEN PT IS HAVING EGD PER NURSE WAIT FOR DAUGHTER TO SHOW UP IN PERSON TO OBTAIN CONSENT; PER GRADUATE ENGINEER BRANDO NOTES EGD IN AM. CALL PLACED TO DAUGHTER FOR EGD CONSENT. AWAITING CALL BACK.
[2019-08-28] VITALS: BP 134/64
[2019-08-28] MEDS: IV D5W 1,000 ML IV PRN (00:11)
[2019-08-28 04:00] VITALS: BP 137/67
[2019-08-28 07:07] LABS: BASOPHILS % (AUTO) 0.3 % (0.0-2.0); EOSINOPHILS % (AUTO) 1.2 % (0.0-6.0); HEMATOCRIT 30 % (33-45); HEMOGLOBIN 9.7 g/dL (11.5-14.8); LYMPHOCYTES # (AUTO) 1.8 /CMM (0.8-4.8); LYMPHOCYTES % (AUTO) 13.9 % (20.0-44.0); MEAN CORPUSCULAR HGB CONC 32 g/dl (31.0-36.0); MEAN CORPUSCULAR VOLUME 97 fL (82-100); MONOCYTES % (AUTO) 7.6 % (2.0-12.0); NEUTROPHILS # (AUTO) 10.1 /CMM (1.8-8.9); PLATELET COUNT (AUTO) 82 /CMM (150-450); RED BLOOD CELL COUNT(AUTO) 3.11 MIL/uL (4.0-5.2); WHITE BLOOD COUNT (AUTO) 13.1 K/uL (4.3-11.0)
[2019-08-28 07:23] LABS: CALCIUM, SERUM 9.2 mg/dL (8.5-10.1); CREATININE 1.2 mg/dL (0.6-1.3); MAGNESIUM 1.9 mg/dL (1.8-2.4); PHOSPHORUS 1.7 mg/dL (2.5-4.9); POTASSIUM 2.9 mmol/L (3.5-5.1)
[2019-08-28 08:00] VITALS: BP 124/70
[2019-08-28 09:15] LABS: ABG BASE EXCESS 6.4 mmol/L; ABG OXYGEN SATURATION 96.7 % (92.0-98.5); ABG PCO2 44.7 mmHg (35.0-45.0); ABG PH 7.459 (7.350-7.450); AaDO2 132.8 mmHg; COHb 0.4 % (0.5-1.5); MetHb 0.5 % (0.0-1.5); O2Hb 95.8 % (94.0-97.0); PEEP,BG 5 cm H2O; SITE, ABG Right Radial; VENT MODE, BG SIMV 4 +5 PSV 15
[2019-08-28] MEDS: POTASSIUM CL. PREMIX PERIPHER. 50 ML IV SCH ×6 (09:58→14:44)
[2019-08-28] MEDS: NYSTATIN TOP POWDER 15 GM BOTTLE TP SCH ×2 (09:59→17:00)
[2019-08-28] MEDS: Z GUARD REMEDY 2 OZ OINT TP PRN (09:59)
[2019-08-28] MEDS: CLOTRIMAZOLE/BETAMETASONE DIPROPIONATE 15 GM TUBE TP SCH ×2 (10:00→18:46)
[2019-08-28] MEDS: VITAMINS A AND D 56.7 GM TUBE TP PRN (10:00)
[2019-08-28] MEDS: LACTULOSE 10 G/15 ML UDC (PYXIS) PO SCH ×4 (10:03→20:58)
[2019-08-28] MEDS: PANTOPRAZOLE 40 MG/PACK PACK GT SCH (10:03)
[2019-08-28] MEDS: VIT B CMPLX 3/FA/VIT C/BIOTIN 1 TAB TABLET PO SCH (10:03)
[2019-08-28] MEDS: PROSOURCE / PROSTAT (PYXIS) 30 ML UDC PO SCH (10:07)
[2019-08-28] MEDS: PROSOURCE / PROSTAT (PYXIS) 30 ML UDC GT SCH (10:07)
[2019-08-28] MEDS: MODAFINIL 100 MG TABLET PO SCH (10:09)
[2019-08-28] MEDS: HYDROGEL DRESSING 90 GM TUBE TP SCH (10:11)
[2019-08-28] MEDS: BLOOD SUGAR DIAGNOSTIC 1 EACH STRIP IN SCH ×2 (10:16→20:50)
--- NOTE | 2019-08-28 10:37 | NUR ---
RT NOTE RECEIVED PT MECHANICALLY VENTILATED VIA SHILEY 8 XLT CUFFED TRACHEOSTOMY TUBE. CUFF INFLATED. TRACH TUBE MIDLINE AND SECURE. PT PLACED ON SIMV PER MD GUZMAN ORDER. ABG DONE POST 1 HR VENT CHANGES. RESULTS ENDORSED TO LALIT RESTREPO. NO DISTRESS NOTED. PT REMAINS ON SIMV TOLERATING WELL. Addendum: 08/28/19 at 1040 by SHAWNEE ROLLE RT Amended: Links added.
[2019-08-28] MEDS ORDERED: MEROPENEM 500 MG in IV NS 0.9% 50 ML IV SCH (11:30)
[2019-08-28] MEDS ORDERED: FEE PK DOSING 1 MIN EA MC ONE (11:49)
[2019-08-28 12:00] VITALS: BP 138/84
[2019-08-28] MEDS ORDERED: VANCOMYCIN 500 MG in IV D5W 100 ML IV PRN (12:00)
[2019-08-28] MEDS: MEROPENEM 500 MG in IV NS 0.9% 50 ML IV SCH (12:51)
[2019-08-28] MEDS ORDERED: VANCOMYCIN 1 GM in IV D5W 250 ML IV ONE (14:00)
[2019-08-28 16:00] VITALS: BP 121/71
[2019-08-28] MEDS: POTASSIUM PHOSPHATE MM 7.5 MMOL in IV D5W 100 ML IV SCH ×2 (18:48→20:49)
[2019-08-28 20:00] VITALS: BP 131/69
[2019-08-29] VITALS: BP 131/69
[2019-08-29] MEDS: MEROPENEM 500 MG in IV NS 0.9% 50 ML IV SCH ×2 (00:36→12:35)
[2019-08-29] MEDS: IV D5W 1,000 ML IV PRN (00:45)
[2019-08-29 04:00] VITALS: BP 135/81
[2019-08-29 06:35] LABS: BASOPHILS % (AUTO) 0.3 % (0.0-2.0); EOSINOPHILS % (AUTO) 4.2 % (0.0-6.0); HEMATOCRIT 31 % (33-45); LYMPHOCYTES # (AUTO) 1.4 /CMM (0.8-4.8); LYMPHOCYTES % (AUTO) 13.3 % (20.0-44.0); MEAN CORPUSCULAR HGB CONC 33 g/dl (31.0-36.0); MEAN CORPUSCULAR VOLUME 97 fL (82-100); MONOCYTES # (AUTO) 0.7 /CMM (0.1-1.30); MONOCYTES % (AUTO) 6.8 % (2.0-12.0); NEUTROPHILS # (AUTO) 7.8 /CMM (1.8-8.9); NEUTROPHILS % (AUTO) 75.4 % (43.0-81.0); PLATELET COUNT (AUTO) 95 /CMM (150-450); RED BLOOD CELL COUNT(AUTO) 3.16 MIL/uL (4.0-5.2); WHITE BLOOD COUNT (AUTO) 10.3 K/uL (4.3-11.0)
[2019-08-29 06:53] LABS: CALCIUM, SERUM 8.8 mg/dL (8.5-10.1); MAGNESIUM 1.8 mg/dL (1.8-2.4); PHOSPHORUS 2.9 mg/dL (2.5-4.9); POTASSIUM 3.7 mmol/L (3.5-5.1)
--- NOTE | 2019-08-29 07:00 | NUR ---
RN OPENING NOTE PATIENT IN BED, ON VENT, SIMV, SATING WELL AT 100%. S/P TRACH ON 08/26. PATIENT AWAKE, OPENS EYES. ON TELE MONITOR, SR. HAS A DE LA FUENTE AND RECTAL PLACED. CURRENTLY NPO ORDERED. NGT CLAMPED. HAS A RIGHT UA PICC WITH D5W AT 75 ML/HR. SCHEDULED HD TODAY. NO SIGNS OF ANY PAIN NOR SOB AT THIS TIME. ON BILATERAL SOFT RESTRAINTS. BED LOCKED AND IN LOWEST POSITION. WILL CONTINUE TO MONITOR
--- NOTE | 2019-08-29 07:14 | NUR ---
PT. RECEIVED ON VENT SUPPORT VIA TRACH WITH FOLLOWING PARAMETERS: SIMV 4, VT 550, PS 15, FIO2 40%, PEEP 5. Addendum: 08/29/19 at 0715 by TREY BACON RT Amended: Links added.
[2019-08-29 08:00] VITALS: BP 137/76
[2019-08-29] MEDS: LACTULOSE 10 G/15 ML UDC (PYXIS) PO SCH ×4 (08:18→21:20)
[2019-08-29] MEDS: PROSOURCE / PROSTAT (PYXIS) 30 ML UDC GT SCH (08:18)
[2019-08-29] MEDS: MODAFINIL 100 MG TABLET PO SCH (08:18)
[2019-08-29] MEDS: PROSOURCE / PROSTAT (PYXIS) 30 ML UDC PO SCH (08:18)
[2019-08-29] MEDS: VIT B CMPLX 3/FA/VIT C/BIOTIN 1 TAB TABLET PO SCH (08:18)
[2019-08-29] MEDS: PANTOPRAZOLE 40 MG/PACK PACK GT SCH (08:18)
[2019-08-29] MEDS: CLOTRIMAZOLE/BETAMETASONE DIPROPIONATE 15 GM TUBE TP SCH ×2 (08:24→17:09)
[2019-08-29] MEDS: NYSTATIN TOP POWDER 15 GM BOTTLE TP SCH ×2 (08:35→17:09)
[2019-08-29 08:42] LABS: BAND % (MANUAL) 8 % (0.0-5.0); EOSINOPHILS % (MANUAL) 3 % (0-4); LYMPHOCYTES % (MANUAL) 16 % (16-48); MONOCYTES % (MANUAL) 9 % (0-11.0); NEUTROPHILS % (MANUAL) 64 (42-76)
[2019-08-29] MEDS: BLOOD SUGAR DIAGNOSTIC 1 EACH STRIP IN SCH ×2 (09:14→21:13)
[2019-08-29] MEDS: HYDROGEL DRESSING 90 GM TUBE TP SCH (10:10)
--- NOTE | 2019-08-29 10:11 | NUR ---
RN NOTE DR PETERS AT BEDSIDE. SINCE PEG PLACEMENT WILL BE MOVED SATURDAY. CONTINUE NGT FEEDING AND DC D5W AT 75 ML/HR. PATIENT WILL BE NPO AT MIDNIGHT FOR TOMORROW AND START D5W AT 75 ML/HR ONCE NPO.
[2019-08-29 12:00] VITALS: BP_SYST 128; BP_SYST 148; BP_DIAS 68; BP_DIAS 99
[2019-08-29] MEDS: NEPRO 1,000 ML BOTTLE GT PRN (14:44)
[2019-08-29 16:00] VITALS: BP 148/99
--- NOTE | 2019-08-29 16:00 | NUR ---
RN NOTE HD DONE TODAY, NO FLUIDS OUT
[2019-08-29] MEDS ORDERED: VANCOMYCIN 1 GM in IV D5W 250 ML IV ONE (17:00)
[2019-08-29] MEDS ORDERED: IBUPROFEN 600 MG TABLET PO PRN ×2 (17:00)
--- NOTE | 2019-08-29 18:47 | NUR ---
RN CLOSING NOTE PATIENT IN BED, AWAKE AND OPENS EYES. DAUGHTER WAS AT BEDSIDE. ON VENT, SATING WELL AT 100%. ON TELE, SR. HAS DE LA FUENTE WITH 250 ML OUT. AND FLEXI SEAL 200 ML OUT. DIALYSIS DONE TODAY NO FLUIDS OUT. HAS NGT WITH NEPRO RUNNING AT 45 ML/HR. CHECKED PLACEMENT. NO RESIDUAL. WAS GIVEN 200 ML WATER FLUSH Q6H. HAS RIGHT UA PICC TKO. HAD 100.1F TEMP, GOT AN ORDER FOR MOTRIN PRN. PATIENT WAS GIVEN ICE BATH, NO MORE FEVER. NO INSULIN COVERAGE. VANCO WAS GIVEN. NPO TOMORROW AT MIDNIGHT FOR PEG PLACEMENT ON SATURDAY. HAS BILATERAL WRIST RESTRAINTS TO BE RENEWED AT 0200. BED LOCKED AND IN LOWEST POSITION. WILL ENDORSE TO NOC SHIFT FOR CHATA
[2019-08-29 20:00] VITALS: BP 118/54
[2019-08-30] VITALS: BP 118/57
[2019-08-30] MEDS: MEROPENEM 500 MG in IV NS 0.9% 50 ML IV SCH ×2 (00:43→12:18)
[2019-08-30] MEDS: IV D5W 1,000 ML IV PRN ×2 (00:51→16:36)
--- NOTE | 2019-08-30 00:57 | NUR ---
RT NOTE PT RECEIVED TRACHED ON MECHANICAL VENTILATION. PT AWAKE. SHILEY [address] CUFFED TRACH IN PLACE. CUFF CHECKED VIA PRODUCTION DESIGNER. AMBU BAG/BACK UP TRACH @ BEDSIDE. SX DONE, TRACH SECURED AND PATENT. ALARMS ON AND AUDIBLE. NO SOB NOTED. WILL MONITOR. CONT. PULSE OX CONNECTED. Addendum: 08/30/19 at 0058 by NOLAN BARBOUR RT Amended: Links added.
[2019-08-30 04:00] VITALS: BP 129/72
[2019-08-30] MEDS ORDERED: VANCOMYCIN 500 MG in IV D5W 100 ML IV PRN (06:00)
[2019-08-30 07:00] LABS: BASOPHILS % (AUTO) 0.3 % (0.0-2.0); EOSINOPHILS % (AUTO) 6.4 % (0.0-6.0); HEMATOCRIT 32 % (33-45); HEMOGLOBIN 10.1 g/dL (11.5-14.8); LYMPHOCYTES # (AUTO) 1.5 /CMM (0.8-4.8); LYMPHOCYTES % (AUTO) 11.9 % (20.0-44.0); MEAN CORPUSCULAR HGB CONC 32 g/dl (31.0-36.0); MEAN CORPUSCULAR VOLUME 97 fL (82-100); MONOCYTES # (AUTO) 0.9 /CMM (0.1-1.30); MONOCYTES % (AUTO) 7.1 % (2.0-12.0); NEUTROPHILS # (AUTO) 9.4 /CMM (1.8-8.9); NEUTROPHILS % (AUTO) 74.3 % (43.0-81.0); PLATELET COUNT (AUTO) 103 /CMM (150-450); RED BLOOD CELL COUNT(AUTO) 3.24 MIL/uL (4.0-5.2); WHITE BLOOD COUNT (AUTO) 12.7 K/uL (4.3-11.0)
--- NOTE | 2019-08-30 07:10 | NUR ---
SUPERVISOR GARAGE OPENING NOTES RECEIVED PT LYING ON BED.NON VERBAL.TRACH AND VENT DEPEND WITH SETTINGS SHILEY XLT 8,SIMV 4 TV550 HBD966% AND PEEP5.TOLERATING WELL.ON TELE HR IS 97 WITH SR WITH A FIB.NO SOB AND ACUTE DISTRESS NOTED.FLEXISEAL IS PRESENT.G TUBE PRESENT WITH NEPRO @45CC/HR IS RUNNING.TOLERATING WELL.DE LA FUENTE CATH PRESENT.IV LINE IS ON RIGHT UA PICC LINE WITH D5W @75ML/HR IS RUNNING.SITE IS CLEAN,DRY AND INTACT.NO INFILTRATION NOTED.SAFETY IS MAINTAINED AT ALL TIMES.BED IS IN LOW POSITION AND LOCKED.CALL LIGHT IS WITHIN REACH.WILL CONTINUE TO MONITOR THE PT CLOSELY.
[2019-08-30 07:24] LABS: CREATININE 1.1 mg/dL (0.6-1.3); PHOSPHORUS 2.9 mg/dL (2.5-4.9); POTASSIUM 3.7 mmol/L (3.5-5.1)
[2019-08-30 08:00] VITALS: BP 138/96
[2019-08-30] MEDS: BLOOD SUGAR DIAGNOSTIC 1 EACH STRIP IN SCH ×2 (08:52→21:58)
[2019-08-30] MEDS: PANTOPRAZOLE 40 MG/PACK PACK GT SCH (08:52)
[2019-08-30] MEDS: PROSOURCE / PROSTAT (PYXIS) 30 ML UDC GT SCH (08:52)
[2019-08-30] MEDS: VIT B CMPLX 3/FA/VIT C/BIOTIN 1 TAB TABLET PO SCH (08:53)
[2019-08-30] MEDS: LACTULOSE 10 G/15 ML UDC (PYXIS) PO SCH ×4 (08:53→21:28)
[2019-08-30] MEDS: MODAFINIL 100 MG TABLET PO SCH (08:53)
[2019-08-30] MEDS: NYSTATIN TOP POWDER 15 GM BOTTLE TP SCH ×2 (08:54→16:30)
[2019-08-30] MEDS: INSULIN REGULAR, HUMAN 100 UNIT/ML 3 ML VIAL SQ PRN ×2 (08:54→21:58)
[2019-08-30] MEDS: CLOTRIMAZOLE/BETAMETASONE DIPROPIONATE 15 GM TUBE TP SCH ×2 (08:54→16:30)
[2019-08-30] MEDS: HYDROGEL DRESSING 90 GM TUBE TP SCH (08:54)
[2019-08-30 12:00] VITALS: BP 142/63
[2019-08-30 16:00] VITALS: BP 121/64
[2019-08-30] MEDS: NEPRO 1,000 ML BOTTLE GT PRN (16:36)
--- NOTE | 2019-08-30 18:45 | NUR ---
VARNISH REMOVER NOTES FLEXISEAL AND DE LA FUENTE CATHETER IS REPLACED ITS LEAKING.
[2019-08-30 19:33] LABS: APPEARANCE,URINE Clear (CLEAR); BILIRUBIN,URINE Negative (NEGATIVE); BLOOD, URINE Trace-intact Ery/uL (NEGATIVE); COLOR,URINE Light yellow (YELLOW); KETONES,URINE Negative (NEGATIVE); LEUKOCYTE ESTERASE ,URINE Negative (NEGATIVE); NITRITE, URINE Negative (NEGATIVE); PH,URINE 5.5 (5.0-8.0); PROTEIN,URINE Negative (NEGATIVE); UGLUCOSE Negative (NEGATIVE); UROBILINOGEN,URINE 0.2 EU/dL (0.2)
--- NOTE | 2019-08-30 19:45 | NUR ---
RETAIL FINANCIAL ANALYST NOTES, RECEIVED PATIENT ON BED.NON VERBAL, ON MECHANICAL VENTILATOR, TOLERATED SETTINGS WELL, NO SOB AND ACUTE DISTRESS NOTED, NSR IN THE TELE MONITOR WITH HR IN THE 80S-90S AT THIS TIME, RIGHT UA PICC LINE WITH D5W @75ML/HR INFUSING WELL AND PATIENT TOLERATED WELL, NG TUBE PRESENT WITH NEPRO @45CC/HR INFUSING WELL AND PATIENT TOLERATED WELL, FLEXISEAL IS PRESENT WITH MINIMAL LIQUID GREENISH STOOL NOTED, DE LA FUENTE CATH IN PLACED, PATENTCY INTACT, SAFETY IS MAINTAINED AT ALL TIMES, BED LOCKED AND LOW POSITION, CALL LIGHT WITHIN REACH, WILL CONTINUE TO MONITOR THE PATIENT CLOSELY.
[2019-08-30 20:00] VITALS: BP 123/66
[2019-08-30] MEDS ORDERED: VANCOMYCIN 1 GM in IV D5W 250ml IV ONE (20:00)
--- NOTE | 2019-08-30 20:02 | NUR ---
LOTTERY SALES CLERK CLOSING NOTES PT IS LYING ON BED WITH TRACH AND VENT DEPEND.TOLERATING WELL.RESPIRATION IS EVEN AND NONLABORED.NO SIGNIFICANT CHANGES NOTED IN THE SHIFT.ENDORSED TO FLIGHT INSTRUCTOR RN FOR CHATA.
--- NOTE | 2019-08-30 20:40 | NUR ---
RN NOTES, PATIENT STARTING ON HEMODIALYSIS AT THIS TIME, WILL CONTINUE TO MONITOR CLOSELY.
--- NOTE | 2019-08-30 22:45 | NUR ---
RN NOTES, PATIENT RESTLESSNESS, AND CONSTANTLY MOVING, ON HEMODIALYSIS AT THIS TIME, CALLED LUCI JOSUE AND LET HIM KNOW ABOUT PATIENT RESTLESSNESS AND THAT SHE DOESN'T HAVE ANYTHING TO CALM HER DOWN, HE REPLIED WITH NEW ORDER TO INCREASE THE ORDER FOR MORPHINE TO 4MG IVP INSTEAD OF 2MG, NOTED AND CARRIED OUT.
[2019-08-30] MEDS: MORPHINE SULFATE INJ 4 MG/ML DISP.SYRIN IV PRN (22:58)
--- NOTE | 2019-08-30 23:50 | NUR ---
RN NOTES, END OF HD AT THIS TIME, PATIENT TOLERATED WELL, WITH NO SOB/ACUTE DISTRESS NOTED, AND STABLE VITAL SIGNS, 500ML OUT. WILL BE NPO AFTER MIDNIGHT FOR PEG/EGD IN AM.
[2019-08-31] VITALS (7 sets, daily range): BP systolic 112–152; BP diastolic 57–78
[2019-08-31] MEDS: MEROPENEM 500 MG in IV NS 0.9% 50 ML IV SCH ×2 (01:33→13:21)
--- NOTE | 2019-08-31 03:50 | NUR ---
RT Pt trach remains on [facility] vent t/o the night. No resp distress noted. trach secure and patent. Addendum: 08/31/19 at 0350 by JOVI COLIN RT Amended: Links added.
[2019-08-31 06:49] LABS: BASOPHILS # (AUTO) 0.1 /CMM (0.0-0.2); BASOPHILS % (AUTO) 0.6 % (0.0-2.0); EOSINOPHILS % (AUTO) 9.1 % (0.0-6.0); HEMATOCRIT 29 % (33-45); HEMOGLOBIN 9.7 g/dL (11.5-14.8); LYMPHOCYTES # (AUTO) 1.4 /CMM (0.8-4.8); LYMPHOCYTES % (AUTO) 13.8 % (20.0-44.0); MEAN CORPUSCULAR HGB CONC 33 g/dl (31.0-36.0); MEAN CORPUSCULAR VOLUME 96 fL (82-100); MONOCYTES # (AUTO) 0.8 /CMM (0.1-1.30); MONOCYTES % (AUTO) 8.2 % (2.0-12.0); NEUTROPHILS # (AUTO) 6.7 /CMM (1.8-8.9); NEUTROPHILS % (AUTO) 68.3 % (43.0-81.0); PLATELET COUNT (AUTO) 79 /CMM (150-450); RED BLOOD CELL COUNT(AUTO) 3.06 MIL/uL (4.0-5.2); WHITE BLOOD COUNT (AUTO) 9.8 K/uL (4.3-11.0)
--- NOTE | 2019-08-31 07:00 | NUR ---
RN NOTES, PATIENT STABLE THROUGHOUT THE NIGHT, NO SIGNIFICANT CHANGE IN CONDITION, NPO SINCE MIDNIGHT FOR EGD/PEG THIS MORNING, ENDORSED FOR CONTINUITY OF CARE TO PORTER, RN
[2019-08-31 07:19] LABS: CALCIUM, SERUM 8.2 mg/dL (8.5-10.1); MAGNESIUM 1.8 mg/dL (1.8-2.4); PHOSPHORUS 2.4 mg/dL (2.5-4.9); POTASSIUM 3.4 mmol/L (3.5-5.1)
--- NOTE | 2019-08-31 07:30 | NUR ---
RN NOTE RECEIVED PATIENT ON BED, WITH SPONTANEOUS EYE OPENING, NOT ABLE TO TRACK, NON VERBAL. NOT ON ANY FORM OF DISTRESS. VENT AND TRACH DEPENDENT, TOLERATING CURRENT VENT SETTINGS. SATING WELL. MOUTH AND TRACH SUCTIONED FOR AIRWAY PATENCY. A FIB ON THE TELEMONITOR WITH HR ON THE 110'S. NO INDICATION OF PAIN NOTED AT THIS TIME. NGT IN PLACE, PLACEMENT CONFIRMED THROUGH AUSCULTATION. CLAMPED AT THIS TIME. PICC LINE ON THE BRIAN: IN PLACE, DRESSING CLEAN, DRY AND INTACT, WITH ONGOING IVF:DW AT 75CC/HR. R FEMORAL CATH ALSO IN PLACE, DRESSING DRY AND INTACT. [place] CATH IN PLACE, DRAINING WELL VIA GRAVITY TO YELLOW URINE. RECTAL TUBE IN PLACE DRAINING TO YELLOW LIQUID STOOL. SAFETY MEASURES OBSERVED AND MAINTAINED. HOB KEPT ELEVATED. BED IN LOWEST AND LOCKED POSITION, CALL LIGHT WITHIN EASY REACH, SIDE RAILS UP X3. WILL CONTINUE TO MONITOR AND ANTICIPATE NEEDS Addendum: 08/31/19 at 1846 by PORTER ROUSE RN DISREGARD UNABLE TO TRACK, PATIENT A/A/O X1, ABLE TO FOLLOW SOME COMMANDS
[2019-08-31 07:50] LABS: EOSINOPHILS % (MANUAL) 5 % (0-4); LYMPHOCYTES % (MANUAL) 14 % (16-48); MONOCYTES % (MANUAL) 6 % (0-11.0); NEUTROPHILS % (MANUAL) 75 (42-76)
[2019-08-31] MEDS: LACTULOSE 10 G/15 ML UDC (PYXIS) PO SCH ×4 (09:00→20:59)
[2019-08-31] MEDS: PROSOURCE / PROSTAT (PYXIS) 30 ML UDC GT SCH (09:00)
[2019-08-31] MEDS: VIT B CMPLX 3/FA/VIT C/BIOTIN 1 TAB TABLET PO SCH (09:00)
[2019-08-31] MEDS: PANTOPRAZOLE 40 MG/PACK PACK GT SCH (09:00)
[2019-08-31] MEDS: MODAFINIL 100 MG TABLET PO SCH (09:00)
--- NOTE | 2019-08-31 09:00 | NUR ---
RN NOTES HELD MEDICATION THROUGH THE GT SINCE PATIENT ON NPO STATUS. WILL CLARIFY WITH ATTENDING IF OKAY TO GIVE.
[2019-08-31] MEDS: HYDROGEL DRESSING 90 GM TUBE TP SCH (09:08)
[2019-08-31] MEDS: NYSTATIN TOP POWDER 15 GM BOTTLE TP SCH ×2 (09:09→17:05)
[2019-08-31] MEDS: CLOTRIMAZOLE/BETAMETASONE DIPROPIONATE 15 GM TUBE TP SCH ×2 (09:09→17:04)
[2019-08-31] MEDS ORDERED: POTASSIUM CHLORIDE 20 MEQ POWDER PACKET GT SCH (10:00)
[2019-08-31] MEDS: IV D5W 1,000 ML IV PRN (10:13)
[2019-08-31] MEDS: BLOOD SUGAR DIAGNOSTIC 1 EACH STRIP IN SCH ×2 (10:28→21:46)
[2019-08-31] MEDS ORDERED: NEUTRA PHOS 1 POWD.PACKET NG ONE (11:30)
--- NOTE | 2019-08-31 11:40 | NUR ---
RN NOTES OBTAINED CONSENT FOR PEG PLACEMENT KALI RANDOLPH (DAUGHTER0 THROUGH PHONE CALL. CONSENT VERIFIED WITH LAURO CORDOVA
--- NOTE | 2019-08-31 12:00 | NUR ---
RN NOTES CLARIFIED WITH DR. PETERS IF OKAY TO GIVE MEDICATION THROUGH NGT, PATIENT ON NPO. PER MD KEEP PATIENT ON NPO. THEN OBTAINED ORDER TO CHANGE PO POTASSIUM ORDER TO IV. PER THE NEUTRAPHOS, SPOKE TO KAVON GUERRA PER THE LATER SHE SPOKE TO KYAW AND THAT MD HAS VERBALIZED THAT NO NEED TO REPLACE PHOSPHORUS AT THIS TIME. Addendum: 08/31/19 at 8 by PORTER ROUSE RN GT FLUSHING NOT GIVEN TH WHOLE DAY DUE TO PATIENT ON NPO STATUS
[2019-08-31] MEDS: POTASSIUM CL. PREMIX PERIPHER. 50 ML IV SCH ×2 (14:13→15:40)
[2019-08-31 17:00] LABS: BACTERIA,URINE QNS /HPF (None Seen); RBC,URINE QNS /HPF (0-2); SQUAMOUS EPITHELIAL CELL,UR QNS /HPF (None Seen); WBC,URINE QNS /HPF (0-3)
[2019-08-31] MEDS: LACTOBACILLUS RHAMNOSUS GG 1 EACH CAP.SPRINK GT SCH (17:00)
--- NOTE | 2019-08-31 19:18 | NUR ---
RN NOTES ENDORSED FOR CONTINUITY OF CARE. NO ACUTE CHANGES WITHIN THE SHIFT. NOT ON ANY FORM OF DISTRESS. ALL NURSING NEEDS ATTENDED AND MET. HOB KEPT ELEVATED. SAFETY MEASURES ENSURED IN PLACE AT ALL TIME. CALL LIGHT WITHIN REACH
--- NOTE | 2019-08-31 19:25 | NUR ---
RT Pt rochelle remains on [facility] vent t/o the night. No resp distress noted. trach secure and patent. Addendum: 08/31/19 at 1925 by TED PUENTE RT Amended: Links added.
--- NOTE | 2019-08-31 19:30 | NUR ---
SHRIMP PACKER NOTES, RECEIVED PATIENT ON BED, NON VERBAL, WITH EYES OPEN, ON MECHANICAL VENTILATOR, TOLERATED SETTINGS WELL, NO SOB AND ACUTE DISTRESS NOTED, NSR IN THE TELE MONITOR WITH HR IN THE 90S AT THIS TIME, RIGHT UA PICC LINE WITH D5W @75ML/HR INFUSING WELL AND PATIENT TOLERATED WELL, NG TUBE PRESENT, BUT NPO FOR PEG PLACEMENT IN THE MOORING, , FLEXISEAL IS PRESENT WITH MINIMAL LIQUID GREENISH STOOL NOTED, [place] CATH IN PLACED, PATENTCY INTACT, MINIMAL AMOUNT OF YELLOW URINE, ALL SAFETY MEASURES IN PLACED, BED LOCKED AND LOW POSITION, CALL LIGHT WITHIN REACH, WILL CONTINUE TO MONITOR PATIENT CLOSELY.
[2019-08-31] MEDS: INSULIN REGULAR, HUMAN 100 UNIT/ML 3 ML VIAL SQ PRN (21:47)
--- NOTE | 2019-08-31 21:47 | NUR ---
RN NOTES, BLOOD SUGAR LEVEL AT THIS TIME 74mg/dL, AND NO INSULIN ADMINISTERED PER [employer].
[2019-09-01] VITALS (7 sets, daily range): BP systolic 95–137; BP diastolic 45–66
[2019-09-01] MEDS: MEROPENEM 500 MG in IV NS 0.9% 50 ML IV SCH ×2 (00:54→13:00)
[2019-09-01] MEDS: IV D5W 1,000 ML IV PRN ×2 (02:02→19:51)
[2019-09-01 06:29] LABS: CALCIUM, SERUM 8.7 mg/dL (8.5-10.1); MAGNESIUM 1.9 mg/dL (1.8-2.4); PHOSPHORUS 2.7 mg/dL (2.5-4.9)
[2019-09-01 06:35] LABS: BASOPHILS % (AUTO) 0.3 % (0.0-2.0); EOSINOPHILS % (AUTO) 4.5 % (0.0-6.0); HEMATOCRIT 31 % (33-45); HEMOGLOBIN 10.1 g/dL (11.5-14.8); LYMPHOCYTES # (AUTO) 1.4 /CMM (0.8-4.8); LYMPHOCYTES % (AUTO) 14.7 % (20.0-44.0); MEAN CORPUSCULAR HGB CONC 33 g/dl (31.0-36.0); MEAN CORPUSCULAR VOLUME 96 fL (82-100); MONOCYTES # (AUTO) 0.8 /CMM (0.1-1.30); MONOCYTES % (AUTO) 8.6 % (2.0-12.0); NEUTROPHILS # (AUTO) 6.8 /CMM (1.8-8.9); NEUTROPHILS % (AUTO) 71.9 % (43.0-81.0); PLATELET COUNT (AUTO) 109 /CMM (150-450); RED BLOOD CELL COUNT(AUTO) 3.21 MIL/uL (4.0-5.2); WHITE BLOOD COUNT (AUTO) 9.5 K/uL (4.3-11.0)
--- NOTE | 2019-09-01 06:44 | NUR ---
RN NOTES, PATIENT REMAINS STABLE , ON MECHANICAL VENTILATOR TOLERATED SETTINGS WELL, NPO FOR EGD/PEG THIS MORNING, NO SIGNIFICANT CHANGE OF CONDITION DURING THE NIGHT, CONT ON IV HYDRATION, WILL ENDORSED CONTINUITY OF CARE TO ONCOMING NURSE.
[2019-09-01] MEDS: PROSOURCE / PROSTAT (PYXIS) 30 ML UDC GT SCH (09:00)
[2019-09-01] MEDS: BLOOD SUGAR DIAGNOSTIC 1 EACH STRIP IN SCH ×2 (09:00→21:33)
[2019-09-01] MEDS: LACTOBACILLUS RHAMNOSUS GG 1 EACH CAP.SPRINK GT SCH ×2 (09:00→17:30)
[2019-09-01] MEDS: HYDROGEL DRESSING 90 GM TUBE TP SCH (09:00)
[2019-09-01] MEDS: CLOTRIMAZOLE/BETAMETASONE DIPROPIONATE 15 GM TUBE TP SCH ×2 (09:00→17:30)
[2019-09-01] MEDS: NYSTATIN TOP POWDER 15 GM BOTTLE TP SCH ×2 (09:00→17:31)
[2019-09-01] MEDS: LACTULOSE 10 G/15 ML UDC (PYXIS) PO SCH ×4 (09:00→21:11)
[2019-09-01] MEDS: VIT B CMPLX 3/FA/VIT C/BIOTIN 1 TAB TABLET PO SCH (09:00)
[2019-09-01] MEDS: MODAFINIL 100 MG TABLET PO SCH (09:00)
[2019-09-01] MEDS: PANTOPRAZOLE 40 MG/PACK PACK GT SCH (09:00)
--- NOTE | 2019-09-01 17:00 | NUR ---
RN NOTE UNABLE TO PERFORM HD DUE TO MALFUNCTION IN HD CATHETER (R FEMORAL) PER HD NURSE, DR COELLO NOTIFIED. NO NEW ORDERS. PHARMACY NOTIFIED, PER PHARMACY TO HOLD OFF VANCOMYCIN DOSE FOR TODAY.
[2019-09-01] MEDS: NEPRO 1,000 ML BOTTLE GT PRN (17:39)
[2019-09-01] MEDS: MORPHINE SULFATE INJ 4 MG/ML DISP.SYRIN IV PRN ×2 (17:44→23:38)
[2019-09-01] MEDS ORDERED: VANCOMYCIN 1 GM in IV D5W 250 ML IV ONE (18:00)
--- NOTE | 2019-09-01 19:40 | NUR ---
CATEGORY PLANNER NOTES, RECEIVED PATIENT ON BED, NON VERBAL, WITH EYES OPEN, ON MECHANICAL VENTILATOR, TOLERATED SETTINGS WELL, NO SOB AND ACUTE DISTRESS NOTED, NSR IN THE TELE MONITOR WITH HR IN THE 90S AT THIS TIME, BRIAN PICC LINE WITH D5W @75ML/HR INFUSING WELL AND PATIENT TOLERATED WELL, S/P GT TUBE TODAY, NEPRO INFUSING WELL AND PATIENT TOLERATED WELL, WITH 5ML RESIDUAL NOTED, HOB ELEVATED AT ALL TIMES, [place] CATH IN PLACED, PATENCY INTACT, MINIMAL AMOUNT OF YELLOW URINE, ALL SAFETY MEASURES IN PLACED, BED LOCKED AND LOW POSITION, CALL LIGHT WITHIN REACH, WILL CONTINUE TO MONITOR PATIENT CLOSELY.
[2019-09-01] MEDS: INSULIN REGULAR, HUMAN 100 UNIT/ML 3 ML VIAL SQ PRN (21:34)
[2019-09-02] VITALS: BP 105/44
[2019-09-02] MEDS: MEROPENEM 500 MG in IV NS 0.9% 50 ML IV SCH ×2 (00:41→12:46)
[2019-09-02 04:00] VITALS: BP 106/51
--- NOTE | 2019-09-02 06:53 | NUR ---
RN NOTES, PATIENT ON BED SLEEPING AT THIS TIME BUT AROUSES EASILY TO VERBAL STIMULI, ON MECHANICAL VENTILATOR, TOLERATED SETTINGS WELL, NO SOB/ACUTE DISTRESS NOTED AT THIS TIME, GT IN PLACED, INFUSING WELL, AND PATIENT TOLERATED WELL, GOAL 45, CURRENTLY INFUSING AT 35ML/HR, DRY AND CLEAN, HOB ELEVATED AT ALL TIMES, CALL LIGHT W/I REACH, BILATERAL SOF RESTRAINS IN PLACED, NO CIRCULATION COMPROMISED, NO ABNORMALITY SIGN NOTED, FREQUENT CIRCULATION CHECKS , WILL ENDORSE CONTINUATION OF CARE TO ONCOMING NURSE.
--- NOTE | 2019-09-02 07:10 | NUR ---
RN OPENING NOTES RECEIVED REPORT FROM SEWING MACHINE BOBBIN WINDER RN. PT ON VENTILATOR. APPEARS TO BE TOLERATING WELL WITH EQUAL BILATERAL CHEST RISE AND FALL. NO OBVIOUS SIGNS OF SOB OR PAIN NOTED AT THIS TIME. PT ON G-TUBE FEEDING SET AT 35 MLS/HR PER REPORT PT IS TOLERATING WELL. PT ON SOF WRIST RESTRAINTS BILATERALLY WITH CIRCULATION CHECKS AND CAP REFILL WNL. WILL CONTINUE TO MONITOR.
[2019-09-02 08:00] VITALS: BP 116/56
[2019-09-02 08:26] VITALS: BP 116/56
[2019-09-02] MEDS: PANTOPRAZOLE 40 MG/PACK PACK GT SCH (08:27)
[2019-09-02] MEDS: BLOOD SUGAR DIAGNOSTIC 1 EACH STRIP IN SCH (08:27)
[2019-09-02] MEDS: LACTOBACILLUS RHAMNOSUS GG 1 EACH CAP.SPRINK GT SCH (08:28)
[2019-09-02] MEDS: PROSOURCE / PROSTAT (PYXIS) 30 ML UDC GT SCH (08:28)
[2019-09-02] MEDS: VIT B CMPLX 3/FA/VIT C/BIOTIN 1 TAB TABLET PO SCH (08:28)
[2019-09-02] MEDS: MODAFINIL 100 MG TABLET PO SCH (08:28)
[2019-09-02] MEDS: LACTULOSE 10 G/15 ML UDC (PYXIS) PO SCH ×2 (08:29→12:46)
[2019-09-02] MEDS: CLOTRIMAZOLE/BETAMETASONE DIPROPIONATE 15 GM TUBE TP SCH (08:30)
[2019-09-02] MEDS: HYDROGEL DRESSING 90 GM TUBE TP SCH (08:30)
[2019-09-02] MEDS: NYSTATIN TOP POWDER 15 GM BOTTLE TP SCH (08:30)
[2019-09-02 08:43] LABS: ABG BASE EXCESS 0.9 mmol/L; ABG PCO2 40.3 mmHg (35.0-45.0); ABG PH 7.418 (7.350-7.450); ABG PO2 103.9 mmHg (75.0-100.0); COHb 0.1 % (0.5-1.5); MetHb 0.6 % (0.0-1.5); O2Hb 96.3 % (94.0-97.0); PEEP,BG 5 cm H2O; SITE, ABG Right Radial; VENT MODE, BG SIMV 4 / PS 15; VT, ABG 550 mL
[2019-09-02] MEDS ORDERED: BUMETANIDE (1 MG) 1 MG TABLET GT SCH (09:00)
[2019-09-02] MEDS: MORPHINE SULFATE INJ 4 MG/ML DISP.SYRIN IV PRN (10:27)
[2019-09-02] MEDS: IV D5W 1,000 ML IV PRN (10:28)
[2019-09-02 12:00] VITALS: BP 104/60
--- NOTE | 2019-09-02 12:16 | NUR ---
RIGHT FEMORAL CATHETER REMOVED BY HD NURSE SHANELL. MINIMAL BLEEDING NOTED AT PRESENT TIME.
[2019-09-02] MEDS ORDERED: IV NS 0.9% 500 ML IV ONE (14:00)
--- NOTE | 2019-09-02 15:30 | NUR ---
RN DC NOTES PT PRESSURE DRESSING INTACT. REPORT GIVEN TO JAH HILL FOR CHATA OF CARE. PHOTOS TAKEN. CALLED DAUGHTER LEFT VOICEMAIL. REPORT AND EXITCARE GIVEN TO EMT'S. PT LEFT ON GURNEY AND TOLERATING RT TRANSPORT VENT. PT BELONGINGS GIVEN TO EMT'S. TELE BOX REMOVED. PT LEFT WITH DE [place] FUENTE.
== END 2019-09-02 16:25 | DRG 5 ==
LOC: ER 11:23 → ICU 14:31 → TELE-TD 08-10 18:19 → ICU 08-10 18:22 → TELE-TD 08-27 18:05 → TELE1 08-28 10:03
PROVIDERS: ADMIT Nurse Practitioner Acute Care
PROC: 02HV33Z Insertion of Infusion Device into Superior Vena Cava, Percutaneous Approach (ICD-10-PCS; principal; 2019-08-08)
PROC: 06HY33Z Insertion of Infusion Device into Lower Vein, Percutaneous Approach (ICD-10-PCS; principal; 2019-08-08)
PROC: B548ZZA Ultrasonography of Superior Vena Cava, Guidance (ICD-10-PCS; principal; 2019-08-08)
PROC: 5A1955Z Respiratory Ventilation, Greater than 96 Consecutive Hours (ICD-10-PCS; principal; 2019-08-08)
PROC: 0BH17EZ Insertion of Endotracheal Airway into Trachea, Via Natural or Artificial Opening (ICD-10-PCS; principal; 2019-08-08)
PROC: 5A1D70Z Performance of Urinary Filtration, Intermittent, Less than 6 Hours Per Day (ICD-10-PCS; 2019-08-09)
PROC: 0JBM0ZZ Excision of Left Upper Leg Subcutaneous Tissue and Fascia, Open Approach (ICD-10-PCS; 2019-08-11)
PROC: 0JBL0ZZ Excision of Right Upper Leg Subcutaneous Tissue and Fascia, Open Approach (ICD-10-PCS; 2019-08-11)
PROC: 0B110F4 Bypass Trachea to Cutaneous with Tracheostomy Device, Open Approach (ICD-10-PCS; 2019-08-26)
PROC: 0DH63UZ Insertion of Feeding Device into Stomach, Percutaneous Approach (ICD-10-PCS; 2019-09-01)
DX: J96.01 Acute respiratory failure with hypoxia (principal); N17.0 Acute kidney failure with tubular necrosis; A41.9 Sepsis, unspecified organism; G92 Toxic encephalopathy; E43 Unspecified severe protein-calorie malnutrition; I50.31 Acute diastolic (congestive) heart failure; L89.223 Pressure ulcer of left hip, stage 3; J18.9 Pneumonia, unspecified organism; L89.313 Pressure ulcer of right buttock, stage 3; D68.59 Other primary thrombophilia; E87.2 Acidosis; E87.1 Hypo-osmolality and hyponatremia; E66.2 Morbid (severe) obesity with alveolar hypoventilation; Z68.44 Body mass index [BMI] 60.0-69.9, adult; N39.0 Urinary tract infection, site not specified; I13.0 Hypertensive heart and chronic kidney disease with heart failure and stage 1 through stage 4 chronic kidney disease, or unspecified chronic kidney disease; E11.65 Type 2 diabetes mellitus with hyperglycemia; E11.51 Type 2 diabetes mellitus with diabetic peripheral angiopathy without gangrene; E11.22 Type 2 diabetes mellitus with diabetic chronic kidney disease; D63.1 Anemia in chronic kidney disease; D69.6 Thrombocytopenia, unspecified; E78.5 Hyperlipidemia, unspecified; E87.0 Hyperosmolality and hypernatremia; F32.9 Major depressive disorder, single episode, unspecified; L30.4 Erythema intertrigo; L03.116 Cellulitis of left lower limb; Z99.81 Dependence on supplemental oxygen; Z79.4 Long term (current) use of insulin; R40.2142 Coma scale, eyes open, spontaneous, at arrival to emergency department; R40.2252 Coma scale, best verbal response, oriented, at arrival to emergency department; R40.2362 Coma scale, best motor response, obeys commands, at arrival to emergency department; K21.9 Gastro-esophageal reflux disease without esophagitis; F20.9 Schizophrenia, unspecified; B19.20 Unspecified viral hepatitis C without hepatic coma; E87.5 Hyperkalemia; J96.02 Acute respiratory failure with hypercapnia; K74.69 Other cirrhosis of liver; I48.20 Chronic atrial fibrillation, unspecified; L98.8 Other specified disorders of the skin and subcutaneous tissue; R13.10 Dysphagia, unspecified; K74.60 Unspecified cirrhosis of liver; E11.42 Type 2 diabetes mellitus with diabetic polyneuropathy; B96.89 Other specified bacterial agents as the cause of diseases classified elsewhere; Z86.19 Personal history of other infectious and parasitic diseases; K72.90 Hepatic failure, unspecified without coma
CPT/HCPCS: 31720; 36415; 36569; 36600; 43246; 71045-TC; 76604-TC; 80048-TC; 80053-TC; 80061-TC; 80076-TC; 80202-TC; 80305; 81000-TC; 82140-TC; 82550-TC; 82570-TC; 82728-TC; 82803-TC; 82962-TC; 83540-TC; 83605-TC; 83735-TC; 83880; 83970; 84100-TC; 84155; 84155-TC; 84165; 84300-TC; 84439-TC; 84443-TC; 84478-TC; 84484-TC; 85025-TC; 85610-TC; 86704; 86705; 86706; 86803; 86850-TC; 87040-TC; 87070-TC; 87081-TC; 87086-TC; 87186-TC; 87340; 90935-TC; 93307-TC; 93970-TC; 94002-TC; 94003-TC; 94640-TC; 94760-TC; 94762-TC; 99082-TC; A4216; A4623; A6248; A6253; A6403; A7526; C1750; C1751; C9113; G0378; J0690; J0692; J1265; J1644; J1815; J2185; J2270; J2543; J2704; J3370; J3480; J3490; J7030; J7040; J7042; J7050; J7060; J7070; P9047